=== PATIENT | male | born 1990 | race Two or more races ===

== ENCOUNTER → 2024-06-02 | Outpatient (CLI) | payer MEDICAID, SELFPAY | END | disposition home or self-care (01) | PROVIDERS: PCP Physician Assistant; Referring Provider Physician Assistant; Visit Provider Student in an Organized Health Care Education/Training Program | DX: K60.2 Anal fissure, unspecified (principal); G82.50 Quadriplegia, unspecified; G40.89 Other seizures | CPT/HCPCS: 17250; 99212; G0463 ==

== ENCOUNTER → 2024-06-09 | Outpatient (CLI) | payer MEDICAID, SELFPAY | END | disposition home or self-care (01) | LOC: SWHD 13:25 | PROVIDERS: PCP Physician Assistant; Referring Provider Physician Assistant; Visit Provider Student in an Organized Health Care Education/Training Program | DX: K60.2 Anal fissure, unspecified (principal) | CPT/HCPCS: 99213; G0463 ==

== ENCOUNTER 2024-06-12 14:22 | Inpatient (IN) | payer MEDICAID, SELFPAY ==
[2024-06-12] VITALS (17 sets, daily range): BP systolic 110–131; BP diastolic 71–100; PULSE 105–122; RESP 20–40; TEMP 36.9–38.2; O2SAT 89–100; BMI 25.8
--- NOTE | 2024-06-12 14:49 | EKG_ITS ---
[facility] Test Date: 2024-06-12 Pat Name: OBED MOE Department: Room: - Gender: Male [employer] D[employer] Operator: : 1990 Requested By: Francesca Gregg Order Number: [id number] Reading MD: Francesca Gregg Measurements Intervals [place] Rate: 109 P: 44 CT: 132 QRS: 69 QRSD: 96 T: 60 QT: 305 QTc: 411 Interpretive Statements SINUS TACHYCARDIA ABNORMAL RHYTHM ECG Compared to ECG 12/24/2023 13:37:14 Sinus rhythm no longer present /store/S0/[id number].pdf
--- NOTE | 2024-06-12 14:50 | XR_ITS ---
Examination: AP chest single view Technique one AP portable semiupright chest single view Exam date and time: June 12, 2024 1403 hours INDICATIONS: Sepsis protocol FINDINGS: Suspicious for early bilateral perihilar pneumonia Normal heart size Reduced inspiratory effort IMPRESSION: Suspicious for early bilateral perihilar pneumonia
--- NOTE | 2024-06-12 15:25 | PD.EDSOB ---
ED SOB =RME/HPI General Chief Complaint: Shortness of Breath/Dyspnea Stated Complaint: SHORTNESS OF BREATH Time Seen by Provider: 06/12/24 14:46 Arrival date/time: 06/12/24 14:22 RME / HPI RME / HPI Narrative: 34-year-old male patient with significant history of mental retardation, seizure disorder, nonambulatory, bedbound, was brought in by EMS for evaluation regarding shortness of breath. Patient was noted to be breathing heavy as described by EMS, less responsive, and febrile. Was also noted to be coughing. Onset of symptoms unknown since family is not around at this time. When the EMS arrived, patient was satting 88% on room air. Sepsis alert was initiated right away. Placed on oxygen and now satting 95% on 3 L Related Data Home Medications ?Medication ?Instructions ?Recorded ?Confirmed ascorbic acid (vitamin C) 500 mg 500 mg feeding tube DAILY 12/24/23 12/24/23 tablet (Vitamin C) baclofen 10 mg tablet 10 mg feeding tube Q8HR 12/24/23 12/24/23 cenobamate 200 mg tablet (Xcopri) 200 mg feeding tube DAILY 12/24/23 12/24/23 clonazepam 1 mg tablet 1 mg feeding tube BID 12/24/23 12/24/23 loratadine 10 mg tablet 10 mg feeding tube DAILY 12/24/23 12/24/23 olopatadine 0.2 % eye drops 1 drp ophthalmic (eye) DAILY 12/24/23 12/24/23 valproic acid (as sodium salt) 250 250 mg feeding tube BID 12/24/23 12/24/23 mg/5 mL oral solution Previous Rx's ?Medication ?Instructions ?Recorded levetiracetam 100 mg/mL oral 750 mg (7.5 mL) feeding tube BID 12/27/23 solution (Keppra) #473 mL Allergies Allergy/AdvReac Type Severity Reaction Status Date / Time Penicillins Allergy Verified 11/11/22 22:23 Review of Systems Review of Systems Narrative Review of Systems: Review of system reviewed and within normal limits except mentioned in HPI ED Exam Narrative Physical exam: VITAL SIGNS: Reviewed. GENERAL APPEARANCE: Spontaneous opening of the eyes, nonverbal, does not follows commands, in mild acute distress, HEAD AND FACE: Non-traumatic. ENT: PERRL, pink conjunctivitis, eyelid no trauma, Mucous membrane moist. NECK: Supple, nontender, no nuchal rigidity. CHEST: No tenderness, no crepitus, no paradoxical movement, no retractions. LUNGS: Clear, well ventilated, symmetric, no rales, no wheezing, no ronchi, no stridor, good breath sounds bilaterally. HEART: Regular rate, regular rhythm, no murmur, no gallops. ABDOMEN: Soft, positive bowel sounds, nondistended, no guarding, nontender, no rebound, no masses, G-tube intact RECTAL: Deferred. GENITAL: Deferred. NEUROLOGICAL: Gross motor function intact sensory function intact, Appropriate for age. MUSCULOSKELETAL: low back nontender, full range of motion. EXTREMITIES: Contracted upper and lower extremity, minimal range of motion. SKIN: Color pink, dry, no rash, no lacerations, no abrasions, no contusions. LYMPHATICS: Deferred. Course Quality Measures none Orders Category Date Time Status Admit to Inpatient Status Routine Admission 06/12/24 21:04 Active Patient Condition Routine Admission 06/12/24 21:04 Ordered Aspiration precautions ONCE Care 06/12/24 21:05 Active Bedside COVID-19 Antigen Test NOW Care 06/12/24 18:17 Active Bedside Influenza A&B Antigen Test NOW Care 06/12/24 18:18 Completed COVID-19 Screening Questionnaire NOW Care 06/12/24 20:04 Active Licensed Mortgage Loan Officer STAT Care 06/12/24 14:49 Active Continuous Pulse Oximetry STAT Care 06/12/24 14:49 Completed Decision to Admit X1 Care 06/12/24 20:04 Active EKG (ED ONLY) *Do not use* NOW Care 06/12/24 14:49 Completed In and Out Catheter X1PRN Care 06/12/24 14:49 Completed Insert IV NOW Care 06/12/24 14:49 Active Miscellaneous Nursing Order NOW Care 06/12/24 21:05 Active NPO STAT Care 06/12/24 14:49 Active Nasopharyngeal Suction NEEDED Care 06/12/24 21:05 Active Notify provider NEEDED Care 06/12/24 21:04 Active Obtain weight NOW Care 06/12/24 21:04 Active Seizure precautions NEEDED Care 06/12/24 21:05 Active Strict Intake and Output Routine Care 06/12/24 14:49 Ordered Referral Registered Dietitian Routine Cons 06/12/24 21:22 Active Jevity 1.5 1L RTH Diet 06/13/24 Breakfast Active EKG (ED Only) Stat Exams 06/12/24 14:49 Draft XR chest 1V SEPSIS PROTOCOL Stat Exams 06/12/24 14:50 Completed B-Type Natriuretic Peptide Stat Lab 06/12/24 15:15 Completed Blood Culture (Lab) Stat Lab 06/12/24 15:15 Received CBC AM DRAW Lab 06/13/24 05:00 Ordered CBC AM DRAW Lab 06/14/24 05:00 Ordered CBC AM DRAW Lab 06/15/24 05:00 Ordered CBC Stat Lab 06/12/24 15:15 Completed Cocci Serology IgM with reflex to IgG [Cocci Serology, Lab 06/12/24 21:11 Ordered Unk History] Routine Comprehensive Metabolic Panel AM DRAW Lab 06/13/24 05:00 Ordered Comprehensive Metabolic Panel AM DRAW Lab 06/14/24 05:00 Ordered Comprehensive Metabolic Panel AM DRAW Lab 06/15/24 05:00 Ordered Comprehensive Metabolic Panel Stat Lab 06/12/24 15:15 Completed LDH (Lactate Dehydrogenase) Stat Lab 06/12/24 15:15 Completed Lactate (Lactic Acid) Stat Lab 06/12/24 15:15 Completed Lactic Acid, 3 HR Stat Lab 06/12/24 19:08 Completed Lipase Stat Lab 06/12/24 15:15 Completed MRSA Nasal Screen Stat Lab 06/12/24 21:11 Ordered Magnesium AM DRAW Lab 06/13/24 05:00 Ordered Magnesium AM DRAW Lab 06/14/24 05:00 Ordered Magnesium AM DRAW Lab 06/15/24 05:00 Ordered Magnesium Stat Lab 06/12/24 15:15 Completed Partial Thromboplastin Time Stat Lab 06/12/24 15:15 Completed Phosphorous AM DRAW Lab 06/13/24 05:00 Ordered Phosphorous AM DRAW Lab 06/14/24 05:00 Ordered Phosphorous AM DRAW Lab 06/15/24 05:00 Ordered Phosphorous Stat Lab 06/12/24 15:15 Completed Procalcitonin Stat Lab 06/12/24 15:15 Completed Prothrombin Time with INR Stat Lab 06/12/24 15:15 Completed Troponin I Stat Lab 06/12/24 15:15 Completed Urinalysis Stat Lab 06/12/24 15:50 Completed Urine Culture Stat Lab 06/12/24 15:50 Received VBG [Venous Blood Gas] Stat Lab 06/12/24 15:15 Completed Acetaminophen Supp [Tylenol Supp] Med 06/12/24 21:05 Active 650 mg NE Q6H PRN Acetaminophen Supp [Tylenol Supp] Med 06/12/24 16:06 Discontinued 650 mg NE X1 ONE Acetaminophen Tab [Tylenol Tab] Med 06/12/24 21:05 Active 650 mg PO Q6H PRN Albuterol/Ipratr Rt Aleyda [Duoneb Rt Aleyda] Med 06/12/24 23:00 Ordered 3 ml INH Q4HRRT Azithromycin Inj [Zithromax Inj] 500 mg Med 06/13/24 09:00 Ordered Sodium Chloride 0.9% 250 ml [Ns] 250 ml IV QDAY Azithromycin Inj [Zithromax Inj] 500 mg Med 06/12/24 18:22 Discontinued Sodium Chloride 0.9% 250 ml [Ns] 250 ml IV X1 Baclofen [Lioresal] Med 06/12/24 22:00 Ordered 10 mg GT TID Dextrose 50% Syr [D50w Syringe Abboject] Med 06/12/24 21:23 Active 25 ml IV Q15MIN PRN Dextrose 50% Syr [D50w Syringe Abboject] Med 06/12/24 21:23 Active 50 ml IV Q15MIN PRN Glucagon Inj Med 06/12/24 21:23 Active 1 mg IM Q15MIN PRN HYDROcodone*/APAP 5/325 [[place] 5/325] Med 06/12/24 21:05 Active 1 tab GT Q4HR PRN Heparin Inj Med 06/12/24 21:15 Ordered 5,000 unit SC BID Magnesium Sulfate 2 GM Ivpb [Magnesium Sulfate Ivpb] Med 06/12/24 21:23 Active 2 gm in 50 ml IV X1 Olopatadine Hcl 0.2% Med 06/13/24 09:00 Ordered 0.2 drops BOTH EYES QDAY Ondansetron Inj [Zofran Inj] Med 06/12/24 21:05 Ordered 4 mg IV Q6H PRN Pantoprazole Inj [Protonix Inj] Med 06/13/24 09:00 Ordered 40 mg IVP QDAY Senna [Senokot] Med 06/12/24 21:05 Ordered 1 tab GT QDAY PRN Sodium Chloride 0.9% 1000 ml [Ns] 1,000 ml Med 06/12/24 21:15 Ordered IV 75 mls/hr Sodium Chloride 0.9% 1000 ml [Ns] 1,000 ml Med 06/12/24 14:53 Discontinued IV 999 mls/hr Sodium Chloride 0.9% 1000 ml [Ns] 1,000 ml Med 06/12/24 18:22 Discontinued IV 999 mls/hr Valproic Acid Syrup [Depakene Syrup] Med 06/12/24 21:30 Ordered 250 mg GT BID Xcopri Med 06/13/24 09:00 Ordered 200 mg FEED TUBE QDAY cefTRIAXone [Rocephin] 1,000 mg Med 06/12/24 16:45 Discontinued Sodium Chloride 0.9% (P) [Ns 0.9% (P)] 50 ml IV X1 cefTRIAXone/D5w 1gm IV premix [Rocephin/D5w 1gm IV Med 06/13/24 09:00 Ordered premix] 50 ml IV QDAY clonazePAM [KlonoPIN] Med 06/12/24 21:15 Ordered 1 mg GT BID guaiFENesin/DM [Mucinex DM] Med 06/12/24 21:11 Active 1 each GT Q4HR PRN levETIRAcetam [Keppra] Med 06/12/24 21:30 Ordered 100 mg PO BID lorataDINE [Claritin] Med 06/13/24 09:00 Ordered 10 mg PO QDAY Code Status Routine Oth 06/12/24 21:04 Ordered Airway suctioning NEEDED RT 06/12/24 21:05 Active Airway suctioning X1 RT 06/12/24 21:05 Active Chest Physiotherapy Treatment Q6HR RT 06/12/24 21:20 Active Oxygen Delivery NOW RT 06/12/24 14:49 Active Oxygen Delivery PRN RT 06/12/24 21:05 Active Vital Signs Vital signs: Vital Signs Pulse Rate 115 H 06/12/24 14:40 Respiratory Rate 22 H 06/12/24 14:40 Blood Pressure 125/77 06/12/24 14:40 Pulse Oximetry (%) 99 06/12/24 14:40 Oxygen Delivery Method High Flow Nasal Cannula 06/12/24 14:40 Oxygen Flow Rate 15 06/12/24 14:40 Shortness of Breath / Dyspnea MDM Narrative MDM Narrative:: 34-year-old male patient with significant history of mental retardation, seizure disorder, nonambulatory, bedbound, was brought in by EMS for evaluation regarding shortness of breath. Patient was noted to be breathing heavy as described by EMS, less responsive, and febrile. Was also noted to be coughing. Onset of symptoms unknown since family is not around at this time. When the EMS arrived, patient was satting 88% on room air. Sepsis alert was initiated right away. Placed on oxygen and now satting 95% on 3 L Patient CBC showed no leukocytosis. Lactic acid was noted to be 2.2 chest x-ray showed bilateral pneumonia. EKG showed sinus tachycardia, ventricular rate of 109 bpm, no ST segment elevation depression noted. Patient received IV fluids for hydration, IV ceftriaxone and IV Zithromax. Was also given Tylenol Discussed with hospitalist who admitted the patient. Patient data External records reviewed:: None Clinical information provided by:: EMS Social determinants that could affect healthcare access:: none Patient has the following chronic illnesses:: Mental retardation, bedbound, seizure disorder How is presenting disease/condition affected by chronic disease/condition?: exacerbated by Evaluation data The following diagnostics were reviewed and interpreted by me:: lab results and radiology exam(s) Lab and/or radiology exams considered but not ordered:: None Interpretation Summary: See results in [facility] Medications / Prescriptions Medications or Prescriptions considered but not ordered:: None Medication administrations:: Medication Administration History Acetaminophen (Acetaminophen 325 Mg Tablet) 650 mg PO Q6H PRN PRN Reason: Fever >100.4 or pain Stop: 07/12/24 21:04 Acetaminophen (Acetaminophen Supp 650 Mg Supp) 650 mg NE Q6H PRN PRN Reason: PAIN SCALE 1-3 (mild Stop: 07/12/24 21:04 Hydrocodone Bitart/Acetaminophen (Hydrocodone/Apap 5/325 Tablet) 1 tab GT Q4HR PRN PRN Reason: PAIN SCALE 4-10(Mod-Sev Stop: 06/17/24 21:04 Albuterol/Ipratropium (Albuterol/Ipratropium (Duoneb) Rt Aleyda 3 Ml Nebu) 3 ml INH Q4HRRT ROCIO Stop: 07/12/24 22:59 Baclofen (Baclofen 10 Mg Tablet) 10 mg GT TID ROCIO Stop: 07/12/24 21:59 Clonazepam (Clonazepam 0.5 Mg Tablet) 1 mg GT BID ROCIO Stop: 06/17/24 21:14 Dextrose (Dextrose 50%-Water Inj 50 Ml Syringe) 25 ml IV Q15MIN PRN PRN Reason: BG 50-70 responsive npo pt Stop: 07/12/24 21:22 Dextrose (Dextrose 50%-Water Inj 50 Ml Syringe) 50 ml IV Q15MIN PRN PRN Reason: BG <50 OR BG <70 & pt unresponsive Stop: 07/12/24 21:22 Glucagon (Glucagon Inj 1 Mg Vial) 1 mg IM Q15MIN PRN PRN Reason: BG <70, and no IV access Guaifenesin/Dextromethorphan (Guaifenesin/Dm Tablet) 1 each GT Q4HR PRN PRN Reason: COUGH Stop: 07/12/24 21:10 Heparin Sodium (Porcine) (Heparin Sod Inj 5000 Unit/Ml Vial) 5,000 unit SC BID ROCIO Stop: 06/26/24 21:14 Sodium Chloride (Ns) 1,000 mls @ 75 mls/hr IV .[id number] ROCIO Stop: 07/12/24 21:14 Ceftriaxone Sodium/Dextrose (Rocephin/D5w 1gm Iv Premix) 50 mls @ 100 mls/hr IV QDAY ROCIO Stop: 06/20/24 08:59 Azithromycin 500 mg/ Sodium (Chloride) 250 mls @ 250 mls/hr IV QDAY ROCIO Stop: 06/16/24 08:59 Magnesium Sulfate (Magnesium Sulfate Ivpb) 2 gm in 50 mls @ 25 mls/hr IV X1 ONE Stop: 06/12/24 23:22 Levetiracetam (Levetiracetam 250 Mg Tablet) 100 mg PO BID ROCIO Stop: 07/12/24 21:29 Loratadine (Loratadine 10 Mg Tablet) 10 mg PO QDAY ROCIO Stop: 07/13/24 08:59 Non-Formulary Medication (Olopatadine Hcl 0.2%) 0.2 drops BOTH EYES QDAY ROCIO Stop: 07/13/24 08:59 Non-Formulary Medication (Xcopri) 200 mg FEED TUBE QDAY [facility] Stop: 07/13/24 08:59 Ondansetron HCl (Ondansetron Inj 2 Mg/Ml Inj 2 Ml) 4 mg IV Q6H PRN; Protocol PRN Reason: NAUSEA OR VOMITING Stop: 07/12/24 21:04 Pantoprazole Sodium (Pantoprazole Inj 40 Mg Vial) 40 mg IVP QDAY ROCIO Stop: 07/13/24 08:59 Sennosides (Senna Tablet) 1 tab GT QDAY PRN; Protocol PRN Reason: constipation Stop: 07/12/24 21:04 Valproic Acid (Valproic Acid Syrup 250 Mg/5 Ml Udc) 250 mg GT BID ROCIO Stop: 07/12/24 21:29 Discontinued Medications Acetaminophen (Acetaminophen Supp 650 Mg Supp) 650 mg NE X1 ONE Stop: 06/12/24 16:07 Last Admin: 06/12/24 16:36 Dose: 650 mg Documented By: Sodium Chloride (Ns) 1,000 mls @ 999 mls/hr IV .Q1H1M ONE Stop: 06/12/24 15:53 Last Infusion: 06/12/24 18:16 Dose: Infused Documented By: Admin: 06/12/24 16:45 Dose: 999 mls/hr Documented By: JAYLA Ceftriaxone Sodium 1,000 mg/ (Sodium Chloride) 50 mls @ 100 mls/hr IV X1 ONE Stop: 06/12/24 17:14 Last Infusion: 06/12/24 17:58 Dose: Infused Documented By: Admin: 06/12/24 16:54 Dose: 100 mls/hr Documented By: JAYLA Azithromycin 500 mg/ Sodium (Chloride) 250 mls @ 250 mls/hr IV X1 ONE Stop: 06/12/24 19:21 Last Admin: 06/12/24 18:57 Dose: 250 mls/hr Documented By: Sodium Chloride (Ns) 1,000 mls @ 999 mls/hr IV .Q1H1M ONE Stop: 06/12/24 19:22 Last Admin: 06/12/24 18:58 Dose: 999 mls/hr Documented By: JAYLA Ceftriaxone IV, Zithromax IV, IV fluids for hydration and Tylenol Consultations Consultation(s) initiated? (list below): No Diagnosis Shortness of Breath Differential Diagnosis: community acquired pneumonia and other (Sepsis, fever, aspiration pneumonia) Most likely diagnosis given after review of the tests above:: Sepsis, pneumonia Admission Indicated Admission indicated?: not indicated Admission Request Was there a request for admission?: Yes Admission Attestation Admission request attestation: Discussed case with [Dr. Weeks] from Hospitalist service regarding admission. Discussed patients ED course, exam findings, labs, and radiology results. The Hospitalist [agrees] to accept the patient for admission. Disposition Plan Disposition Plan: Admit Discharge Plan Plan Patient Disposition: Admit Acute Care w/in Hospital Disposition Comment: Stable Prescriptions/Referrals Prescriptions/Med Rec: No Action clonazepam 1 mg tablet 1 mg feeding tube BID ascorbic acid (vitamin C) [Vitamin C] 500 mg tablet 500 mg feeding tube DAILY valproic acid (as sodium salt) 250 mg/5 mL solution 250 mg feeding tube BID baclofen 10 mg tablet 10 mg feeding tube Q8HR loratadine 10 mg tablet 10 mg feeding tube DAILY olopatadine 0.2 % drops 1 drp OPHTHALMIC (EYE) DAILY Xcopri 200 mg tablet 200 mg feeding tube DAILY levetiracetam [Keppra] 100 mg/mL solution 750 mg feeding tube BID Qty: 473 0RF Problem List Clinical Impression: Sepsis, Pneumonia Patient/Caregiver Discharge Instructions Print Language: Azeri Stand Alone Forms: Annia Award Info., Patient Portal Info Letter
[2024-06-12 15:27] LABS: Base Excess, Venous 4 (-3-3); Lactate (Lactic Acid) 2.2 mMol/L (0.4-2.0); O2 Saturation, Venous 96 % (96-97); PCO2, Venous 44 mmHg (36-56); PO2, Venous 73 mmHg (15-58); pH, Venous 7.43 (7.33-7.66)
[2024-06-12 15:37] LABS: Basophils % (Auto) 1 % (0-2.5); Eosinophils # (Auto) 0.3 Thou/mm3 (0.0-0.5); Eosinophils % (Auto) 4 % (0-10); Hematocrit 42.4 % (41.0-53.0); Hemoglobin 14.6 g/dL (13.5-16.0); Immature Granulocytes % (Auto) 0 % (0-0); Immature Granulocytes Auto 0.02 Thou/mm3 (0.00-0.00); Lymphocytes # (Auto) 0.7 Thou/mm3 (1.0-4.8); Lymphocytes % (Auto) 10 % (10-50); Mean Corpuscular HGB Conc 34.4 g/dl (31.0-37.0); Mean Corpuscular Hemoglobin 29.3 pg (25.0-35.0); Mean Corpuscular Volume 85 fL (80-100); Monocytes # (Auto) 1.2 Thou/mm3 (0.0-0.8); Monocytes % (Auto) 18 % (0-12); Neutrophils # (Auto) 4.6 Thou/mm3 (1.8-7.7); Neutrophils % (Auto) 67 % (37-80); Nucleated Red Blood Cell % 0 /100 WBC (0); Platelet Count 185 Thou/mm3 (140-440); RDW Standard Deviation 44.2 fL (35.1-43.9); Red Blood Count 4.99 Miln/mm3 (4.50-5.90); White Blood Count 6.8 Thou/mm3 (3.8-10.6)
[2024-06-12 15:45] LABS: Partial Thromboplastin Time 32.5 Seconds (22.0-36.0); Prothrombin Time 11.2 Seconds (9.0-12.2)
[2024-06-12 15:46] LABS: B-Type Natriuretic Peptide < 20 pg/mL (0-100)
[2024-06-12 15:55] LABS: Collection Type, Urine Clean Catch
[2024-06-12 15:55] LABS: Alanine Aminotransferase 44 U/L (10-49); Albumin, Serum 4.4 gm/dL (3.5-5.0); Albumin/Globulin Ratio 1.4 (1.2-2.2); Alkaline Phosphatase 109 U/L (46-116); Anion Gap 7 (7-16); Aspartate Amino Transferase 28 U/L (0-34); BUN/Creatinine Ratio 15 Ratio (12-20); Bilirubin,Total 0.3 mg/dL (0.3-1.2); Blood Urea Nitrogen 6 mg/dL (9-23); Calcium 9.5 mg/dL (8.3-10.6); Calcium (Corrected) 9.5 mg/dL (8.5-10.1); Carbon Dioxide 26.7 mMol/L (20.0-31.0); Chloride 91 mMol/L (98-107); Creatinine (Component) 0.4 mg/dL (0.6-1.3); Globulin 3.2 gm/dL (2.3-3.5); Glucose 93 mg/dL (74-106); LDH (Lactate Dehydrogenase) 168 U/L (120-246); Lipase 47 U/L (12-53); Magnesium 1.8 mg/dL (1.6-2.6); Osmolality,Calculated 249 (275-295); Phosphorous 2.9 mg/dL (2.4-5.1); Potassium 3.9 mMol/L (3.4-5.1); Procalcitonin 0.06 ng/ml (0.0-0.49); Sodium 125 mMol/L (136-145); Total Protein 7.6 gm/dL (5.7-8.2); Troponin I < 0.020 ng/mL (0.0-0.045); eGFR > 60 See Note
[2024-06-12 16:36] LABS: Bilirubin,Urine Negative (Negative); Blood,Urine Negative (Negative); Clarity,Urine Clear (Clear/Hazy); Color,Urine Lt-Yellow (Lt Yel-Yel); Glucose, Urine Negative (Negative); Ketones,Urine Negative (Negative); Leukocyte Esterase,Urine Positive (Negative); Nitrite,Urine Negative (Negative); Protein,Urine Negative (Neg - Trace); RBC,Urine 1 /hpf (0-3); Specific Gravity,Urine 1.017 (1.001-1.035); Squamous Epithelial Cell,Urine 5 /hpf (0-5); WBC,Urine 4 /hpf (0-5)
[2024-06-12] MEDS: ACETAMINOPHEN SUPP 650 MG SUPP PR (16:36)
[2024-06-12] MEDS: SODIUM CHLORIDE 0.9% 1000 ML 1,000 ML 999 ML IV ×2 (16:45→18:58)
[2024-06-12] MEDS: cefTRIAXone 1,000 MG in SODIUM CHLORIDE 0.9% (P) 50 ML 100 MG IV (16:54)
[2024-06-12 18:24] LABS: Reflex Lactate? Y
[2024-06-12] MEDS: AZITHROMYCIN INJ 500 MG in SODIUM CHLORIDE 0.9% 250 ML 250 ML 250 MG IV (18:57)
--- NOTE | 2024-06-12 21:24 | ESHP_ITS ---
Documentation for date of: 06/12/24 HPI History of Present Illness Chief complaint: SOB and cough History of present illness: This patient is a 33-year-old male with past medical history of traumatic brain injury with contractures since and 2002 leading to anoxic brain injury and persistent vegetative state, history of seizures, myocarditis with residual neurological injury and probable prolonged QT syndrome, PEG tube placed since accident doing swimming at school presented with productive cough and shortness of breath from last couple of days. On presentation, patient was found in persistent vegetative state without ability to track and was also found to have contracted limbs. Patient was sent from skilled nursing and he is conserved.[facility] Counselor Dana Mooreck Ph no [phone]. I tried calling on the phone number but was not able to reach out for CODE STATUS. Voicemail was full therefore voicemail could not be sent out. Patient code status was placed based on previous chart review. ED course: In the ED, patient was hypertensive with blood pressure 130/85, tachycardic heart rate 114 bpm, tachypneic respiratory rate 24 and febrile 100.8. Patient was saturating 100% on 3 L NC. Labs were unremarkable including white count and hemoglobin stable. Chemistry panel showed hyponatremia sodium 125. Serum osmolality 249. Kidney functions were stable. Blood glucose stable. Initial lactic acid was elevated at 2.2 down trended to 2.0. Troponin I was negative. Lipase negative. Urinalysis was unremarkable. Influenza and COVID was negative. EKG showed sinus tachycardia with QTc 411. Chest x-ray showed bilateral perihilar pneumonia. Blood cultures and urine cultures were ordered. Previous sputum cultures showed Pseudomonas sensitive to Zosyn. In the ED, patient received ceftriaxone and azithromycin x 1 and 2 L bolus of fluids. PMH: As above SH: Lives in skilled nursing since 2015. Never smoker David or illicit drug use. FH: None Allergies: Penicillin Medications: Baclofen, clonazepam, levetiracetam, valproic acid, Olaptadine eyedrops,xcorpi Patient is admitted for further workup and management of sepsis and acute hypoxic respiratory failure due to community-acquired pneumonia. Review of Systems Review of Systems ROS Unobtainable: unobtainable due to mental status Past Medical History Past Medical History NEUROLOGIC: Positive Neurological Disorders, Seizures and Traumatic Brain Injury RESPIRATORY: Positive Pneumonia Social History SMOKING STATUS: Smoker, status unknown Exam Vital Signs Temp Pulse Resp BP Pulse Ox O2 Del Method O2 Flow Rate 98.4 F 106 H 24 H 110/71 89 L Room Air 6 06/12/24 19:38 06/12/24 19:38 06/12/24 19:38 06/12/24 19:38 06/12/24 19:38 06/12/24 19:38 06/12/24 15:49 Narrative Exam GENERAL APPEARANCE: Patient is in chronic vegetative state and had contractures. Saturating well on 3 L NC. HEENT: NC, AT. Dry mucous membrane. EOMI, clear conjunctiva, oropharynx clear. NECK: Supple without lymphadenopathy. No stiffness or restricted ROM. HEART: Regular rate and regular rhythm, normal S1/S2, no m/r/g LUNGS: Tachypnea with increased respiratory secretions with coarse breath sounds bilateral ABDOMEN: Soft, nontender, nondistended with good bowel sounds heard. PEG tube placed BACK: No CVAT, no obvious deformity. EXTREMITIES: No edema. Spastic quadriplegia with contractures NEUROLOGICAL: Chronic vegetative state. Limited due to medical condition Skin: Warm and dry without any rash. Psych: Unable to assess Results: Labs 06/12/24 15:15 06/12/24 15:15 Labs: Short CBC 06/12/24 Range/Units 15:15 WBC 6.8 (3.8-10.6) Thou/mm3 Hgb 14.6 (13.5-16.0) g/dL Hct 42.4 (41.0-53.0) % Plt Count 185 (140-440) Thou/mm3 BMP 06/12/24 15:15 Sodium 125 L Potassium 3.9 Chloride 91 L Carbon Dioxide 26.7 BUN 6 L Creatinine 0.4 L Glucose 93 Calcium 9.5 Cardiac Enzymes 06/12/24 Range/Units 15:15 Troponin I < 0.020 (0.0-0.045) ng/mL Liver Function 06/12/24 Range/Units 15:15 Total Bilirubin 0.3 (0.3-1.2) mg/dL AST 28 (0-34) U/L ALT 44 (10-49) U/L Alkaline Phosphatase 109 (46-116) U/L Albumin 4.4 (3.5-5.0) gm/dL Urine 06/12/24 Range/Units 15:50 Urine Color Lt-Yellow (Lt Yel-Yel) Urine Clarity Clear (Clear/Hazy) Urine pH 8.0 H (5.0-7.0) Ur Specific [place] 1.017 (1.001-1.035) Urine Protein Negative (Neg - Trace) Urine Glucose (UA) Negative (Negative) ABG Interpretation ABG results: 06/12/24 15:15 VBG pH 7.43 VBG pCO2 44 VBG pO2 73 H VBG Base Excess 4 H Quality Measures Quality Measures VTE prophylaxis (Heparin subcut twice daily) Medications Home Medications and Allergies Home Medications ?Medication ?Instructions ?Recorded ?Confirmed ?Type ascorbic acid (vitamin C) 500 mg 500 mg feeding tube D AILY 12/24/23 12/24/23 History tablet (Vitamin C) baclofen 10 mg tablet 10 mg feeding tube Q8HR 11/2812/24/23 History cenobamate 200 mg tablet (Xcopri) 200 mg feeding tube DAILY 12/24/23 12/24/23 History clonazepam 1 mg tablet 1 mg feeding tube BID 12/24/23 History loratadine 10 mg tablet 10 mg feeding tube DAILY 12/24/23 History olopatadine 0.2 % eye drops 1 drp ophthalmic (eye) ALEXY LY 12/24/23 12/24/23 History valproic acid (as sodium salt) 250 250 mg feeding tube BID 12/24/23 12/24/23 History mg/5 mL oral solution Allergies Allergy/AdvReac Type Severity Reaction Status Date / Time Penicillins Allergy Verified 11/11/22 22:23 Visit Medications Acetaminophen (Acetaminophen 325 Mg Tablet) 650 mg PO Q6H PRN PRN Reason: Fever >100.4 or pain Stop: 07/12/24 21:04 Acetaminophen (Acetaminophen Supp 650 Mg Supp) 650 mg LA Q6H PRN PRN Reason: PAIN SCALE 1-3 (mild Stop: 07/12/24 21:04 Hydrocodone Bitart/Acetaminophen (Hydrocodone/Apap 5/325 Tablet) 1 tab GT Q4HR PRN PRN Reason: PAIN SCALE 4-10(Mod-Sev Stop: 06/17/24 21:04 Albuterol/Ipratropium (Albuterol/Ipratropium (Duoneb) Rt Aleyda 3 Ml Nebu) 3 ml INH Q4HRRT ROCIO Stop: 07/12/24 22:59 Baclofen (Baclofen 10 Mg Tablet) 10 mg GT TID ROCIO Stop: 07/12/24 21:59 Clonazepam (Clonazepam 0.5 Mg Tablet) 1 mg GT BID ROCIO Stop: 06/17/24 21:14 Dextrose (Dextrose 50%-Water Inj 50 Ml Syringe) 25 ml IV Q15MIN PRN PRN Reason: BG 50-70 responsive npo pt Stop: 07/12/24 21:22 Dextrose (Dextrose 50%-Water Inj 50 Ml Syringe) 50 ml IV Q15MIN PRN PRN Reason: BG <50 OR BG <70 & pt unresponsive Stop: 07/12/24 21:22 Glucagon (Glucagon Inj 1 Mg Vial) 1 mg IM Q15MIN PRN PRN Reason: BG <70, and no IV access Guaifenesin/Dextromethorphan (Guaifenesin/Dm Tablet) 1 each GT Q4HR PRN PRN Reason: COUGH Stop: 07/12/24 21:10 Heparin Sodium (Porcine) (Heparin Sod Inj 5000 Unit/Ml Vial) 5,000 unit SC BID ROCIO Stop: 06/26/24 21:14 Sodium Chloride (Ns) 1,000 mls @ 75 mls/hr IV .[id number] ROCIO Stop: 07/12/24 21:14 Ceftriaxone Sodium/Dextrose (Rocephin/D5w 1gm Iv Premix) 50 mls @ 100 mls/hr IV QDAY ROCIO Stop: 06/20/24 08:59 Azithromycin 500 mg/ Sodium (Chloride) 250 mls @ 250 mls/hr IV QDAY ROCIO Stop: 06/16/24 08:59 Magnesium Sulfate (Magnesium Sulfate Ivpb) 2 gm in 50 mls @ 25 mls/hr IV X1 ONE Stop: 06/12/24 23:22 Levetiracetam (Levetiracetam 250 Mg Tablet) 100 mg PO BID ROCIO Stop: 07/12/24 21:29 Loratadine (Loratadine 10 Mg Tablet) 10 mg PO QDAY ROCIO Stop: 07/13/24 08:59 Non-Formulary Medication (Olopatadine Hcl 0.2%) 0.2 drops BOTH EYES QDAY ROCIO Stop: 07/13/24 08:59 Non-Formulary Medication (Xcopri) 200 mg FEED TUBE QDAY [facility] Stop: 07/13/24 08:59 Ondansetron HCl (Ondansetron Inj 2 Mg/Ml Inj 2 Ml) 4 mg IV Q6H PRN; Protocol PRN Reason: NAUSEA OR VOMITING Stop: 07/12/24 21:04 Pantoprazole Sodium (Pantoprazole Inj 40 Mg Vial) 40 mg IVP QDAY ROCIO Stop: 07/13/24 08:59 Sennosides (Senna Tablet) 1 tab GT QDAY PRN; Protocol PRN Reason: constipation Stop: 07/12/24 21:04 Valproic Acid (Valproic Acid Syrup 250 Mg/5 Ml Udc) 250 mg GT BID ROCIO Stop: 07/12/24 21:29 Discontinued Medications Acetaminophen (Acetaminophen Supp 650 Mg Supp) 650 mg LA X1 ONE Stop: 06/12/24 16:07 Last Admin: 06/12/24 16:36 Dose: 650 mg Sodium Chloride (Ns) 1,000 mls @ 999 mls/hr IV .Q1H1M ONE Stop: 06/12/24 15:53 Last Infusion: 06/12/24 18:16 Dose: Infused Ceftriaxone Sodium 1,000 mg/ (Sodium Chloride) 50 mls @ 100 mls/hr IV X1 ONE Stop: 06/12/24 17:14 Last Infusion: 06/12/24 17:58 Dose: Infused Azithromycin 500 mg/ Sodium (Chloride) 250 mls @ 250 mls/hr IV X1 ONE Stop: 06/12/24 19:21 Last Admin: 06/12/24 18:57 Dose: 250 mls/hr Sodium Chloride (Ns) 1,000 mls @ 999 mls/hr IV .Q1H1M ONE Stop: 06/12/24 19:22 Last Admin: 06/12/24 18:58 Dose: 999 mls/hr Assessment & Plan Plan Summary: This patient is a 33-year-old male with past medical history of traumatic brain injury with contractures, history of seizures, myocarditis with residual neurological injury and probable prolonged QT syndrome presented to the ED with cough and shortness of breath. Patient is admitted for sepsis and acute hypoxic respiratory failure due to community-acquired pneumonia. #Sepsis and acute hypoxic respiratory failure #Likely secondary to community-acquired pneumonia ?Met 3/4 SIRS criteria ? Patient presented from skilled nursing with shortness of breath and productive cough with phlegm. Patient is in chronic vegetative state s/p anoxic brain injury. ?Labs showed hemoglobin and white count within normal limits. Lactic acid was elevated on admission. Chest x-ray showed bilateral perihilar pneumonia with reduced respiratory effort. ? EKG showed sinus tachycardia with QTc 411 ? Vitals showed blood pressure 130/85, heart rate 114, respiratory rate 24 and febrile. Saturating 100% on 3 L NC. ? Patient with 3/4 SIRS criteria with tachycardia tachypnea and fever with possible source pneumonia and elevated lactic acid. Procalcitonin was negative. VBG was unremarkable. Flu and COVID test was negative. ?In the ED, patient received ceftriaxone and azithromycin x 1 and 2 L bolus of fluids. Plan: ? Started IV ceftriaxone 1 g once daily and azithromycin 500 mg once daily, [06/12/2024? ? Started IV fluids ? Daily labs ? Ordered cocci serology ? Frequent nasopharyngeal and airway suctioning ? Breathing treatments and chest PT ? Follow-up on morning labs ? Replete electrolytes as necessary ? Aspiration precautions #Lactic acidosis likely type B ? Lactic acid was 2.2 down trended to 2.0 ? Treating underlying infection #Hypoosmolar hyponatremia -DDx: GI losses versus medication induced versus dehydration -Patient is in chronic vegetative state. Plan: ? Started IV fluids at 75 cc ? Daily labs #Chronic persistent vegetative state s/p traumatic brain injury #History of seizure disorder ? Patient takes Keppra, clonazepam, baclofen and xcopri skilled nursing. Plan: ? Resumed home medications ? Seizure precautions #PEG tube -Patient does have a PEG tube feed in place clean and dry Plan: ? Resume PEG tube feeding Health maintenance Diet: PEG tube feedings with Jevity 1.5 GI prophylaxis: Protonix IV daily DVT prophylaxis: Heparin subcut twice daily CODE STATUS: Full code Disposition: Patient is admitted for further workup and management of sepsis and acute hypoxic respiratory failure due to community-acquired pneumonia. Patient was seen and discussed with attending physician, Dr. Leonard Moore MD, PGY 2 Attending Provider Attestation/Addendum 34-year-old male patient with history of traumatic brain injury, anoxic encephalopathy persistent vegetative state status post PEG. The patient was admitted for hypoxic respiratory failure, sepsis secondary to pneumonia. The patient was started on IV antibiotic treatment in the emergency room. Check culture results. The patient is full code.
--- NOTE | 2024-06-12 21:44 | PC.NURSE ---
awaiting for phARMacy to verify meds.
[2024-06-12] MEDS: ALBUTEROL/IPRATROPIUM (Duoneb) RT SOL 3 ML NEBU INH (22:33)
[2024-06-12] MEDS: HEPARIN SOD INJ 5000 UNIT/ML VIAL SC (22:51)
[2024-06-12] MEDS: ACETAMINOPHEN 325 MG TABLET 650 MG PO (22:53)
[2024-06-12] MEDS: clonazePAM 0.5 MG TABLET 1 MG GT (22:53)
[2024-06-12] MEDS: VALPROIC ACID SYRUP 250 MG/5 ML UDC GT (23:06)
[2024-06-12] MEDS: SODIUM CHLORIDE 0.9% 1000 ML 1,000 ML 75 ML IV (23:10)
[2024-06-12] MEDS: Magnesium Sulfate 2 GM Ivpb 2 GM/50 ML BAG IV (23:11)
[2024-06-12] MEDS: BACLOFEN 10 MG TABLET GT (23:45)
[2024-06-12] MEDS: levETIRAcetam LIQD 500 MG/5 ML UDC 100 MG PO (23:45)
[2024-06-13] VITALS (25 sets, daily range): BP systolic 109–132; BP diastolic 68–99; PULSE 93–117; RESP 17–29; TEMP 36.6–38.3; O2SAT 94–100; BMI 25.7
[2024-06-13] MEDS: ALBUTEROL/IPRATROPIUM (Duoneb) RT SOL 3 ML NEBU INH ×5 (03:24→22:32)
--- NOTE | 2024-06-13 04:39 | PC.NURSE ---
Pt has been sleeping throughout the night. has periodical coughing spells.
[2024-06-13 05:21] LABS: Basophils % (Auto) 1 % (0-2.5); Eosinophils # (Auto) 0.1 Thou/mm3 (0.0-0.5); Eosinophils % (Auto) 2 % (0-10); Hematocrit 43.1 % (41.0-53.0); Hemoglobin 14.8 g/dL (13.5-16.0); Immature Granulocytes % (Auto) 0 % (0-0); Immature Granulocytes Auto 0.01 Thou/mm3 (0.00-0.00); Lymphocytes # (Auto) 1.2 Thou/mm3 (1.0-4.8); Lymphocytes % (Auto) 20 % (10-50); Mean Corpuscular HGB Conc 34.3 g/dl (31.0-37.0); Mean Corpuscular Hemoglobin 29.7 pg (25.0-35.0); Mean Corpuscular Volume 86 fL (80-100); Monocytes # (Auto) 1.3 Thou/mm3 (0.0-0.8); Monocytes % (Auto) 22 % (0-12); Neutrophils # (Auto) 3.2 Thou/mm3 (1.8-7.7); Neutrophils % (Auto) 55 % (37-80); Nucleated Red Blood Cell % 0 /100 WBC (0); Platelet Count 156 Thou/mm3 (140-440); RDW Standard Deviation 45.6 fL (35.1-43.9); Red Blood Count 4.99 Miln/mm3 (4.50-5.90); White Blood Count 5.8 Thou/mm3 (3.8-10.6)
[2024-06-13 06:19] LABS: Alanine Aminotransferase 40 U/L (10-49); Albumin, Serum 4.5 gm/dL (3.5-5.0); Albumin/Globulin Ratio 1.4 (1.2-2.2); Alkaline Phosphatase 111 U/L (46-116); Anion Gap 10 (7-16); Aspartate Amino Transferase 30 U/L (0-34); BUN/Creatinine Ratio 13 Ratio (12-20); Bilirubin,Total 0.2 mg/dL (0.3-1.2); Blood Urea Nitrogen < 5 mg/dL (9-23); Calcium 9.4 mg/dL (8.3-10.6); Calcium (Corrected) 9.4 mg/dL (8.5-10.1); Carbon Dioxide 23.7 mMol/L (20.0-31.0); Chloride 97 mMol/L (98-107); Creatinine (Component) 0.4 mg/dL (0.6-1.3); Estimated Creatinine Clearance 230.4 mL/min (>60); Globulin 3.2 gm/dL (2.3-3.5); Glucose 104 mg/dL (74-106); Magnesium 2.1 mg/dL (1.6-2.6); Osmolality,Calculated 259 (275-295); Phosphorous 3.1 mg/dL (2.4-5.1); Potassium 3.8 mMol/L (3.4-5.1); Sodium 131 mMol/L (136-145); Total Protein 7.7 gm/dL (5.7-8.2); eGFR > 60 See Note
--- NOTE | 2024-06-13 07:00 | PC.NURSE ---
Pt inc of urine. Pt cleaned and bedding changed.
[2024-06-13] MEDS: ACETAMINOPHEN 325 MG TABLET 650 MG PO ×2 (07:05→15:26)
[2024-06-13] MEDS: BACLOFEN 10 MG TABLET GT ×3 (07:59→21:07)
[2024-06-13] MEDS: clonazePAM 0.5 MG TABLET 1 MG GT ×2 (08:28→20:05)
[2024-06-13] MEDS: VALPROIC ACID SYRUP 250 MG/5 ML UDC GT ×2 (08:28→20:05)
[2024-06-13] MEDS: PANTOPRAZOLE INJ 40 MG VIAL IVP (08:29)
[2024-06-13] MEDS: levETIRAcetam LIQD 500 MG/5 ML UDC 100 MG PO ×2 (08:29→20:05)
[2024-06-13] MEDS: lorataDINE 10 MG TABLET PO (08:29)
[2024-06-13] MEDS: HEPARIN SOD INJ 5000 UNIT/ML VIAL SC ×2 (08:30→20:07)
[2024-06-13] MEDS: cefTRIAXone 1,000 MG in SODIUM CHLORIDE 0.9% (P) 50 ML 100 MG IV (08:54)
--- NOTE | 2024-06-13 10:30 | PC.DIETICIAN ---
Nutrition prescription Jevity 1.5 at 20 ml/hr via PEG tube by pump. Advance 10 ml every 8 hrs to goal rate of 50 ml/hr x 24 hrs. If no IV fluids, water flushes of 30 ml/hr (or per MD).
[2024-06-13 14:04] LABS: Respiratory Syncytial Virus Ag Positive (Negative)
--- NOTE | 2024-06-13 14:13 | ESPR_ITS ---
<Statement entered by Gonsalo Monahan MD - 06/14/24 06:25> I discussed with and supervised the marketing pr intern physician involved in the care of this patient. Patient assessment and plan was discussed with entire medicine team, including my attending. I agree with the assessment and plan as documented by marketing pr intern doctor. Patient care was discussed with my attending physician Dr. Lucho Monahan, PGY-2 Documentation for date of: 06/13/24 Subjective Subjective Interval history: 06/13/2024: Patient is an overnight admit for acute hypoxic respiratory failure secondary to healthcare associated pneumonia. Patient seen and examined at his stable baseline oxygenating 96% on 3 L nasal cannula. Patient is awake but in a chronic vegetative state. Patient does not seem to be in respiratory distress at this time and lung sounds are mildly coarse without any rales rhonchi or or wheezing. Patient's RSV came back positive; moreover, will consider discontinuing IV antibiotics on 06/14 if the patient remains stable. Exam Vital Signs Temp Pulse Resp BP Pulse Ox O2 Del Method O2 Flow Rate 99.0 F 105 H 20 109/78 100 Nasal Cannula 3 06/13/24 12:26 06/13/24 13:00 06/13/24 13:00 06/13/24 12:26 06/13/24 13:00 06/13/24 12:26 06/13/24 13:00 Narrative Exam Physical Exam: GENERAL: Chronic vegetative state with contractures. Saturating well on 2 L NC. HEENT: NC, AT. Dry mucous membrane. EOMI, clear conjunctiva, oropharynx clear. HEART: RRR, normal S1/S2, no m/r/g LUNGS: Coarse breath sounds heard bilaterally, no wheeze/rales/rhonci ABDOMEN: Soft, nontender, nondistended. PEG tube placed; site look clean/dry EXTREMITIES: No peripheral edema, cyanosis or clubbing; there are contractures of the upper extremeties. NEUROLOGICAL: Chronic vegetative state. Limited due to medical condition Objective Labs 06/14/24 04:48 06/14/24 06:50 Labs: Laboratory Results - last 24 hr 06/12/24 06/12/24 06/12/24 15:15 15:50 19:08 WBC 6.8 RBC 4.99 Hgb 14.6 Hct 42.4 MCV 85 MCH 29.3 MCHC 34.4 RDW Std Deviation 44.2 H Plt Count 185 Neut % (Auto) 67 Lymph % (Auto) 10 [place] % (Auto) 18 H Eos % (Auto) 4 Baso % (Auto) 1 Neut # (Auto) 4.6 Lymph # (Auto) 0.7 L [place] # (Auto) 1.2 H Eos # (Auto) 0.3 Baso # (Auto) 0.0 Immature Gran # (Auto) 0.02 H Absolute Nucleated RBC 0.00 Immature Gran % 0 Nucleated RBC % 0 PT 11.2 INR 1.0 APTT 32.5 VBG pH 7.43 VBG pCO2 44 VBG pO2 73 H VBG O2 Sat (Renaldo) 96 VBG Base Excess 4 H Sodium 125 L Potassium 3.9 Chloride 91 L Carbon Dioxide 26.7 Anion Gap 7 BUN 6 L Creatinine 0.4 L Estim Creat Clear Calc Not Performed. eGFR > 60 BUN/Creatinine Ratio 15 Glucose 93 Calculated Osmolality 249 L Lactic Acid 2.2 H 2.0 Calcium 9.5 Corrected Calcium 9.5 Phosphorus 2.9 Magnesium 1.8 Total Bilirubin 0.3 AST 28 ALT 44 Alkaline Phosphatase 109 Lactate Dehydrogenase 168 Troponin I < 0.020 B-Natriuretic Peptide < 20 Total Protein 7.6 Albumin 4.4 Globulin 3.2 Albumin/Globulin Ratio 1.4 Lipase 47 Procalcitonin 0.06 Ur Collection Type Clean Catch Urine Color Lt-Yellow Urine Clarity Clear Urine pH 8.0 H Ur Specific [place] 1.017 Urine Protein Negative Urine Glucose (UA) Negative Urine Ketones Negative Urine Blood Negative Urine Nitrite Negative Urine Bilirubin Negative Urine Urobilinogen (Auto) 2.0 Ur Leukocyte Esterase Positive Urine RBC 1 Urine WBC 4 Ur Squamous Epith Cells 5 Urine Bacteria None RSV Rapid 06/13/24 06/13/24 04:25 13:30 WBC 5.8 RBC 4.99 Hgb 14.8 Hct 43.1 MCV 86 MCH 29.7 MCHC 34.3 RDW Std Deviation 45.6 H Plt Count 156 Neut % (Auto) 55 Lymph % (Auto) 20 [place] % (Auto) 22 H Eos % (Auto) 2 Baso % (Auto) 1 Neut # (Auto) 3.2 Lymph # (Auto) 1.2 [place] # (Auto) 1.3 H Eos # (Auto) 0.1 Baso # (Auto) 0.0 Immature Gran # (Auto) 0.01 H Absolute Nucleated RBC 0.00 Immature Gran % 0 Nucleated RBC % 0 PT INR APTT VBG pH VBG pCO2 VBG pO2 VBG O2 Sat (Renaldo) VBG Base Excess Sodium 131 L Potassium 3.8 Chloride 97 L Carbon Dioxide 23.7 Anion Gap 10 BUN < 5 L Creatinine 0.4 L Estim Creat Clear Calc 230.4 eGFR > 60 BUN/Creatinine Ratio 13 Glucose 104 Calculated Osmolality 259 L Lactic Acid Calcium 9.4 Corrected Calcium 9.4 Phosphorus 3.1 Magnesium 2.1 Total Bilirubin 0.2 L AST 30 ALT 40 Alkaline Phosphatase 111 Lactate Dehydrogenase Troponin I B-Natriuretic Peptide Total Protein 7.7 Albumin 4.5 Globulin 3.2 Albumin/Globulin Ratio 1.4 Lipase Procalcitonin Ur Collection Type Urine Color Urine Clarity Urine pH Ur Specific [place] Urine Protein Urine Glucose (UA) Urine Ketones Urine Blood Urine Nitrite Urine Bilirubin Urine Urobilinogen (Auto) Ur Leukocyte Esterase Urine RBC Urine WBC Ur Squamous Epith Cells Urine Bacteria RSV Rapid Positive A ABG Interpretation ABG results: 06/12/24 15:15 VBG pH 7.43 VBG pCO2 44 VBG pO2 73 H VBG Base Excess 4 H Quality Measures Quality Measures VTE prophylaxis (Heparin subcut twice daily) Assessment & Plan Assessment Current Active Medications: Generic Name Dose Route Start Last Admin Trade Name Freq PRN Reason Stop Dose Admin Acetaminophen 650 mg 06/12/24 21:05 06/13/24 07:05 Acetaminophen 325 Mg Tablet PO 07/12/24 21:04 650 mg Q6H PRN Administration Fever >100.4 or pain Acetaminophen 650 mg 06/12/24 21:05 Acetaminophen Supp 650 Mg Supp AK 07/12/24 21:04 Q6H PRN PAIN SCALE 1-3 (mild Hydrocodone Bitart/Acetaminophen 1 tab 06/12/24 21:05 Hydrocodone/Apap 5/325 Tablet GT 06/17/24 21:04 Q4HR PRN PAIN SCALE 4-10(Mod-Sev Albuterol/Ipratropium 3 ml 06/12/24 23:00 06/13/24 10:24 Albuterol/Ipratropium (Duoneb) Rt Aleyda 3 Ml Nebu INH 07/12/24 22:59 3 ml Q4HRRT ROCIO Administration Baclofen 10 mg 06/12/24 22:00 06/13/24 07:59 Baclofen 10 Mg Tablet GT 07/12/24 21:59 10 mg TID ROCIO Administration Clonazepam 1 mg 06/12/24 21:15 06/13/24 08:28 Clonazepam 0.5 Mg Tablet GT 06/17/24 21:14 1 mg BID ROCIO Administration Dextrose 25 ml 06/12/24 21:23 Dextrose 50%-Water Inj 50 Ml Syringe IV 07/12/24 21:22 Q15MIN PRN BG 50-70 responsive npo pt Dextrose 50 ml 06/12/24 21:23 Dextrose 50%-Water Inj 50 Ml Syringe IV 07/12/24 21:22 Q15MIN PRN BG <50 OR BG <70 & pt unresponsive Glucagon 1 mg 06/12/24 21:23 Glucagon Inj 1 Mg Vial IM Q15MIN PRN BG <70, and no IV access Guaifenesin/Dextromethorphan 1 each 06/12/24 21:11 Guaifenesin/Dm Tablet GT 07/12/24 21:10 Q4HR PRN COUGH Heparin Sodium (Porcine) 5,000 unit 06/12/24 21:15 06/13/24 08:30 Heparin Sod Inj 5000 Unit/Ml Vial SC 06/26/24 21:14 5,000 unit BID ROCIO Administration Azithromycin 500 mg/ Sodium 250 mls @ 250 mls/hr 06/13/24 21:00 Chloride IV 06/20/24 20:59 QDAY@2100 ROCIO Ceftriaxone Sodium 1,000 mg/ 50 mls @ 100 mls/hr 06/13/24 09:00 06/13/24 09:30 Sodium Chloride IV 06/20/24 08:59 Infused QDAY ROCIO Infusion Levetiracetam 100 mg 06/12/24 23:00 06/13/24 08:29 Levetiracetam Liqd 500 Mg/5 Ml Udc PO 07/12/24 22:59 100 mg BID ROCIO Administration Loratadine 10 mg 06/13/24 09:00 06/13/24 08:29 Loratadine 10 Mg Tablet PO 07/13/24 08:59 10 mg QDAY ROCIO Administration Home Medication- 1 drops 06/13/24 09:00 Please Speak With BOTH EYES 07/13/24 08:59 Patient Caregiver To QDAY ROCIO Have Rx Brought To [facility] Home Medication- 200 mg 06/13/24 09:00 Please Speak With PO 07/13/24 08:59 Patient Caregiver To QDAY [facility]IO Have Rx Brought To [facility] Ondansetron HCl 4 mg 06/12/24 21:05 Ondansetron Inj 2 Mg/Ml Inj 2 Ml IV 07/12/24 21:04 Q6H PRN NAUSEA OR VOMITING Protocol Pantoprazole Sodium 40 mg 06/13/24 09:00 06/13/24 08:29 Pantoprazole Inj 40 Mg Vial IVP 07/13/24 08:59 40 mg QDAY ROCIO Administration Sennosides 1 tab 06/12/24 21:05 Senna Tablet GT 07/12/24 21:04 QDAY PRN constipation Protocol Valproic Acid 250 mg 06/12/24 21:30 06/13/24 08:28 Valproic Acid Syrup 250 Mg/5 Ml Udc GT 07/12/24 21:29 250 mg BID ROCIO Administration Plan 33-year-old male with past medical history of traumatic brain injury with contractures, history of seizures, myocarditis with residual neurological injury and probable prolonged QT syndrome presented to the ED with cough and shortness of breath. Patient is admitted for sepsis and acute hypoxic respiratory failure due to community-acquired pneumonia. #Sepsis and acute hypoxic respiratory failure #RSV, viral pneumonia #Lactic acidosis, improving Met 3/4 SIRS criteria Patient presented from fdc with shortness of breath and productive cough with phlegm. Patient is in chronic vegetative state s/p anoxic brain injury. Labs showed hemoglobin and white count within normal limits. Lactic acid was elevated on admission. Chest x-ray showed bilateral perihilar pneumonia with reduced respiratory effort. EKG showed sinus tachycardia with QTc 411 Vitals showed blood pressure 130/85, heart rate 114, respiratory rate 24 and febrile. Saturating 100% on 3 L NC. Patient with 3/4 SIRS criteria with tachycardia tachypnea and fever with possible source pneumonia and elevated lactic acid. Procalcitonin was negative. VBG was unremarkable. Flu and COVID test was negative. In the ED, patient received ceftriaxone and azithromycin x 1 and 2 L bolus of fluids. Lactic acid was 2.2 down trended to 2.0 Patient is positive for RSV Plan: Continue IV ceftriaxone 1 g once daily and azithromycin 500 mg once daily, [06/12/2024? Pending cocci serology Frequent nasopharyngeal and airway suctioning Breathing treatments and chest PT Aspiration precautions #Chronic persistent vegetative state s/p traumatic brain injury #History of seizure disorder Patient takes Keppra, clonazepam, baclofen and xcopri fdc. Plan: Continue home medications Seizure precautions #PEG tube #Hypoosmolar hyponatremia Patient is PEG tube dependent for nutrition; moreover, prone for electrolyte disturbances Patient does have a PEG tube feed in place clean and dry Plan: Resume PEG tube feeding Monitor with morning labs Replete as necessary IV fluid resuscitation when indicated Hospital Management: Lines: PIV Bowel: Senna Diet: PEG tube feedings with Jevity 1.5 GI prophylaxis: Protonix IV daily DVT prophylaxis: Heparin subcut twice daily Disposition: Treating HCAP, possible viral etiology will continue to monitor Code: Full Patient seen and examined with attending Dr. Lyle and senior resident Dr. Hero Nickerson, PGY-1 Attending Provider Attestation/Addendum I attest that I was physically present for the evaluation, physical examination, lab and imaging review of the patient with the residents. I discussed the case with the residents and agree with the findings and plans of care as documented above. Ayush Lyle MD
[2024-06-13 15:13] LABS: Cocci Serology, IgM Positive (Negative)
[2024-06-13 15:14] LABS: Cocid Sro, CF/ID (UCD) NO CHG* See Sep Rpt
[2024-06-13] MEDS: OLOPATADINE HCL 0.2% BOTH EYES (18:32)
[2024-06-13] MEDS: AZITHROMYCIN INJ 500 MG in SODIUM CHLORIDE 0.9% 250 ML 250 ML 250 MG IV (20:06)
[2024-06-14] VITALS (13 sets, daily range): BP systolic 108–134; BP diastolic 77–102; PULSE 99–130; RESP 14–30; TEMP 36.4–37.4; O2SAT 94–100; BMI 25.0
[2024-06-14] MEDS: BENZONATATE 100 MG CAPSULE 200 MG GT (00:54)
[2024-06-14] MEDS: ALBUTEROL/IPRATROPIUM (Duoneb) RT SOL 3 ML NEBU INH ×6 (02:39→22:35)
[2024-06-14] MEDS: BACLOFEN 10 MG TABLET GT ×3 (05:16→21:04)
[2024-06-14 05:58] LABS: Basophils # (Auto) 0.1 Thou/mm3 (0.0-0.2); Basophils % (Auto) 1 % (0-2.5); Eosinophils # (Auto) 0.1 Thou/mm3 (0.0-0.5); Eosinophils % (Auto) 2 % (0-10); Hematocrit 41.4 % (41.0-53.0); Hemoglobin 14.3 g/dL (13.5-16.0); Immature Granulocytes % (Auto) 0 % (0-0); Immature Granulocytes Auto 0.02 Thou/mm3 (0.00-0.00); Lymphocytes # (Auto) 1.1 Thou/mm3 (1.0-4.8); Lymphocytes % (Auto) 20 % (10-50); Mean Corpuscular HGB Conc 34.5 g/dl (31.0-37.0); Mean Corpuscular Hemoglobin 29.7 pg (25.0-35.0); Mean Corpuscular Volume 86 fL (80-100); Monocytes # (Auto) 1.2 Thou/mm3 (0.0-0.8); Monocytes % (Auto) 22 % (0-12); Neutrophils % (Auto) 55 % (37-80); Nucleated Red Blood Cell % 0 /100 WBC (0); Platelet Count 116 Thou/mm3 (140-440); RDW Standard Deviation 46.2 fL (35.1-43.9); Red Blood Count 4.82 Miln/mm3 (4.50-5.90); White Blood Count 5.5 Thou/mm3 (3.8-10.6)
[2024-06-14 08:04] LABS: Alanine Aminotransferase 37 U/L (10-49); Albumin, Serum 4.4 gm/dL (3.5-5.0); Albumin/Globulin Ratio 1.4 (1.2-2.2); Alkaline Phosphatase 108 U/L (46-116); Anion Gap 9 (7-16); Aspartate Amino Transferase 34 U/L (0-34); BUN/Creatinine Ratio 13 Ratio (12-20); Bilirubin,Total 0.3 mg/dL (0.3-1.2); Blood Urea Nitrogen 5 mg/dL (9-23); Calcium 9.6 mg/dL (8.3-10.6); Calcium (Corrected) 9.6 mg/dL (8.5-10.1); Carbon Dioxide 28.8 mMol/L (20.0-31.0); Chloride 93 mMol/L (98-107); Creatinine (Component) 0.4 mg/dL (0.6-1.3); Estimated Creatinine Clearance 230.4 mL/min (>60); Globulin 3.2 gm/dL (2.3-3.5); Glucose 121 mg/dL (74-106); Osmolality,Calculated 260 (275-295); Phosphorous 3.8 mg/dL (2.4-5.1); Potassium 3.7 mMol/L (3.4-5.1); Sodium 131 mMol/L (136-145); Total Protein 7.6 gm/dL (5.7-8.2); eGFR > 60 See Note
[2024-06-14] MEDS: OLOPATADINE HCL 0.2% BOTH EYES (09:21)
[2024-06-14] MEDS: PANTOPRAZOLE INJ 40 MG VIAL IVP (09:21)
[2024-06-14] MEDS: FLUCONAZOLE/NS 400 MG IVPB 400 MG/200 ML BAG 100 MG IV (09:22)
[2024-06-14] MEDS: cefTRIAXone 1,000 MG in SODIUM CHLORIDE 0.9% (P) 50 ML 100 MG IV (09:22)
[2024-06-14] MEDS: VALPROIC ACID SYRUP 250 MG/5 ML UDC GT ×2 (09:23→21:04)
[2024-06-14] MEDS: SENNA TABLET 1 TAB GT (09:23)
[2024-06-14] MEDS: lorataDINE 10 MG TABLET PO (09:23)
[2024-06-14] MEDS: clonazePAM 0.5 MG TABLET 1 MG GT ×2 (09:23→21:03)
[2024-06-14] MEDS: HEPARIN SOD INJ 5000 UNIT/ML VIAL SC ×2 (09:48→21:04)
[2024-06-14] MEDS: levETIRAcetam LIQD 500 MG/5 ML UDC 750 MG GT ×2 (11:19→21:04)
--- NOTE | 2024-06-14 13:24 | ESPR_ITS ---
<Statement entered by Gonsalo Monahan MD - 06/15/24 07:03> I discussed with and supervised the internal affairs investigator physician involved in the care of this patient. Patient assessment and plan was discussed with entire medicine team, including my attending. I agree with the assessment and plan as documented by internal affairs investigator doctor. Patient care was discussed with my attending physician Dr. Valdo Monahan, PGY-2 Documentation for date of: 06/14/24 Subjective Subjective Interval history: 06/14/2024: No acute overnight events to report. Patient seen and examined in hospital bed with minimal supplemental oxygen and saturating 93-94. Patient does have coarse lung sounds bilaterally and is actively coughing without much sputum production. Patient is positive for RSV and Cocci. ID has been consulted; appreciate recommendations. Suspicion for Cocci remain low 2/2 to patient being mostly bedbound and indoors, but will wait for UCD confirmatory testing. Will also look to discontinue IV antibiotics if proCal is negative with morning labs. Exam Vital Signs Temp Pulse Resp BP Pulse Ox O2 Del Method O2 Flow Rate 99.3 F 112 H 25 H 114/82 100 Nasal Cannula 1 06/14/24 08:00 06/14/24 11:07 06/14/24 11:07 06/14/24 08:00 06/14/24 11:07 06/14/24 08:00 06/14/24 11:07 Narrative Exam Physical Exam: GENERAL: Chronic vegetative state with contractures. Saturating well on 2 L NC. HEENT: NC, AT. Dry mucous membrane. EOMI, clear conjunctiva, oropharynx clear. HEART: RRR, normal S1/S2, no m/r/g LUNGS: Coarse breath sounds heard bilaterally, dry coughing, no wheeze/rales/rhonci ABDOMEN: Soft, nontender, nondistended. PEG tube placed; site look clean/dry EXTREMITIES: No peripheral edema, cyanosis or clubbing; there are contractures of the upper extremeties. NEUROLOGICAL: Chronic vegetative state. Limited due to medical condition Objective Labs 06/16/24 08:24 06/16/24 08:24 Labs: Laboratory Results - last 24 hr 06/13/24 06/13/24 06/14/24 04:25 13:30 04:48 WBC 5.5 RBC 4.82 Hgb 14.3 Hct 41.4 MCV 86 MCH 29.7 MCHC 34.5 RDW Std Deviation 46.2 H Plt Count 116 L D Neut % (Auto) 55 Lymph % (Auto) 20 [place] % (Auto) 22 H Eos % (Auto) 2 Baso % (Auto) 1 Neut # (Auto) 3.0 Lymph # (Auto) 1.1 [place] # (Auto) 1.2 H Eos # (Auto) 0.1 Baso # (Auto) 0.1 Immature Gran # (Auto) 0.02 H Absolute Nucleated RBC 0.00 Immature Gran % 0 Nucleated RBC % 0 Sodium Potassium Chloride Carbon Dioxide Anion Gap BUN Creatinine Estim Creat Clear Calc eGFR BUN/Creatinine Ratio Glucose Calculated Osmolality Calcium Corrected Calcium Phosphorus Magnesium Total Bilirubin AST ALT Alkaline Phosphatase Total Protein Albumin Globulin Albumin/Globulin Ratio Coccidioides IgM Ab Positive A RSV Rapid Positive A 06/14/24 06:50 WBC RBC Hgb Hct MCV MCH MCHC RDW Std Deviation Plt Count Neut % (Auto) Lymph % (Auto) [place] % (Auto) Eos % (Auto) Baso % (Auto) Neut # (Auto) Lymph # (Auto) [place] # (Auto) Eos # (Auto) Baso # (Auto) Immature Gran # (Auto) Absolute Nucleated RBC Immature Gran % Nucleated RBC % Sodium 131 L Potassium 3.7 Chloride 93 L Carbon Dioxide 28.8 Anion Gap 9 BUN 5 L Creatinine 0.4 L Estim Creat Clear Calc 230.4 eGFR > 60 BUN/Creatinine Ratio 13 Glucose 121 H Calculated Osmolality 260 L Calcium 9.6 Corrected Calcium 9.6 Phosphorus 3.8 Magnesium 2.0 Total Bilirubin 0.3 AST 34 ALT 37 Alkaline Phosphatase 108 Total Protein 7.6 Albumin 4.4 Globulin 3.2 Albumin/Globulin Ratio 1.4 Coccidioides IgM Ab RSV Rapid ABG Interpretation ABG results: 06/12/24 15:15 VBG pH 7.43 VBG pCO2 44 VBG pO2 73 H VBG Base Excess 4 H Quality Measures Quality Measures VTE prophylaxis (Heparin subcut twice daily) Assessment & Plan Assessment Current Active Medications: Generic Name Dose Route Start Last Admin Trade Name Freq PRN Reason Stop Dose Admin Acetaminophen 650 mg 06/12/24 21:05 06/13/24 15:26 Acetaminophen 325 Mg Tablet PO 07/12/24 21:04 650 mg Q6H PRN Administration Fever >100.4 or pain Protocol Acetaminophen 650 mg 06/12/24 21:05 Acetaminophen Supp 650 Mg Supp [place] 07/12/24 21:04 Q6H PRN PAIN SCALE 1-3 (mild Protocol Hydrocodone Bitart/Acetaminophen 1 tab 06/12/24 21:05 Hydrocodone/Apap 5/325 Tablet GT 06/17/24 21:04 Q4HR PRN PAIN SCALE 4-10(Mod-Sev Albuterol/Ipratropium 3 ml 06/12/24 23:00 06/14/24 11:06 Albuterol/Ipratropium (Duoneb) Rt Aleyda 3 Ml Nebu INH 07/12/24 22:59 3 ml Q4HRRT ROCIO Administration Baclofen 10 mg 06/12/24 22:00 06/14/24 05:16 Baclofen 10 Mg Tablet GT 07/12/24 21:59 10 mg TID ROCIO Administration Clonazepam 1 mg 06/12/24 21:15 06/14/24 09:23 Clonazepam 0.5 Mg Tablet GT 06/17/24 21:14 1 mg BID ROCIO Administration Olopatadine Hcl 0.2% 0 ea 06/13/24 18:15 06/14/24 09:21 Eye Drops BOTH EYES 07/13/24 18:14 1 drops QDAY ROCIO Administration Dextrose 25 ml 06/12/24 21:23 Dextrose 50%-Water Inj 50 Ml Syringe IV 07/12/24 21:22 Q15MIN PRN BG 50-70 responsive npo pt Dextrose 50 ml 06/12/24 21:23 Dextrose 50%-Water Inj 50 Ml Syringe IV 07/12/24 21:22 Q15MIN PRN BG <50 OR BG <70 & pt unresponsive Glucagon 1 mg 06/12/24 21:23 Glucagon Inj 1 Mg Vial IM Q15MIN PRN BG <70, and no IV access Guaifenesin/Dextromethorphan 1 each 06/12/24 21:11 Guaifenesin/Dm Tablet GT 07/12/24 21:10 Q4HR PRN COUGH Heparin Sodium (Porcine) 5,000 unit 06/12/24 21:15 06/14/24 09:48 Heparin Sod Inj 5000 Unit/Ml Vial SC 06/26/24 21:14 5,000 unit BID ROCIO Administration Azithromycin 500 mg/ Sodium 250 mls @ 250 mls/hr 06/13/24 21:00 06/13/24 20:06 Chloride IV 06/20/24 20:59 250 mls/hr QDAY@2100 ROCIO Administration Ceftriaxone Sodium 1,000 mg/ 50 mls @ 100 mls/hr 06/13/24 09:00 06/14/24 09:22 Sodium Chloride IV 06/20/24 08:59 100 mls/hr QDAY ROCIO Administration Fluconazole 400 mg in 200 mls @ 100 mls/hr 06/14/24 09:00 06/14/24 09:22 Diflucan/Ns Ivpb IV 06/21/24 08:59 100 mls/hr QDAY ROCIO Administration Levetiracetam 750 mg 06/14/24 11:00 06/14/24 11:19 Levetiracetam Liqd 500 Mg/5 Ml Udc GT 07/14/24 10:59 750 mg BID ROCIO Administration Loratadine 10 mg 06/13/24 09:00 06/14/24 09:23 Loratadine 10 Mg Tablet PO 07/13/24 08:59 10 mg QDAY ROCIO Administration Home Medication- 200 mg 06/13/24 09:00 06/14/24 09:23 Please Speak With PO 07/13/24 08:59 Not Given Patient Caregiver To QDAY ROCIO Have Rx Brought To [facility] Ondansetron HCl 4 mg 06/12/24 21:05 Ondansetron Inj 2 Mg/Ml Inj 2 Ml IV 07/12/24 21:04 Q6H PRN NAUSEA OR VOMITING Protocol Pantoprazole Sodium 40 mg 06/13/24 09:00 06/14/24 09:21 Pantoprazole Inj 40 Mg Vial IVP 07/13/24 08:59 40 mg QDAY ROCIO Administration Sennosides 1 tab 06/14/24 07:30 06/14/24 09:23 Senna Tablet GT 07/14/24 07:29 1 tab QDAY ROCIO Administration Protocol Valproic Acid 250 mg 06/12/24 21:30 06/14/24 09:23 Valproic Acid Syrup 250 Mg/5 Ml Udc GT 07/12/24 21:29 250 mg BID ROCIO Administration Plan 33-year-old male with past medical history of traumatic brain injury with contractures, history of seizures, myocarditis with residual neurological injury and probable prolonged QT syndrome presented to the ED with cough and shortness of breath. Patient is admitted for sepsis and acute hypoxic respiratory failure due to community-acquired pneumonia. #Sepsis and acute hypoxic respiratory failure #RSV, viral pneumonia #Cocci positive serology #Lactic acidosis, improving Met 3/4 SIRS criteria Patient presented from custodial with shortness of breath and productive cough with phlegm. Patient is in chronic vegetative state s/p anoxic brain injury. Labs showed hemoglobin and white count within normal limits. Lactic acid was elevated on admission. Chest x-ray showed bilateral perihilar pneumonia with reduced respiratory effort. EKG showed sinus tachycardia with QTc 411 Vitals showed blood pressure 130/85, heart rate 114, respiratory rate 24 and febrile. Saturating 100% on 3 L NC. Patient with 3/4 SIRS criteria with tachycardia tachypnea and fever with possible source pneumonia and elevated lactic acid. Procalcitonin was negative. VBG was unremarkable. Flu and COVID test was negative. In the ED, patient received ceftriaxone and azithromycin x 1 and 2 L bolus of fluids. Lactic acid was 2.2 down trended to 2.0 Patient is positive for RSV and Cocci serology Plan: Continue IV ceftriaxone 1 g once daily and azithromycin 500 mg once daily, [06/12/2024? Pending AM proCal will discontinue if negative Started Diflucan 400mg qday GT; lab send out to [facility] for confirmatory testing ID consulted - appreciate recommendations Frequent nasopharyngeal and airway suctioning Breathing treatments and chest PT Aspiration precautions #Thrombocytopenia Patient plts dropped from 156 to 116 Patient on subq heparin for DVT prophylaxis since 06/12 4 T Score: 1?points Low Probability of HIT (<5%) Plan: Will continue to monitor #Chronic persistent vegetative state s/p traumatic brain injury #History of seizure disorder Patient takes Keppra, clonazepam, baclofen and xcopri custodial. Plan: Patient on Keppra 750mg GT bid - switched dosage to accurately reflect home dose Continue home medications Seizure precautions #PEG tube #Hypoosmolar hyponatremia Patient is PEG tube dependent for nutrition; moreover, prone for electrolyte disturbances Patient does have a PEG tube feed in place clean and dry Plan: Resume PEG tube feeding Monitor with morning labs Replete as necessary IV fluid resuscitation when indicated Hospital Management: Lines: PIV Bowel: Senna Diet: PEG tube feedings with Jevity 1.5 GI prophylaxis: Protonix IV daily DVT prophylaxis: Heparin subcut twice daily Disposition: Treating HCAP, possible viral etiology will continue to monitor Code: DNR/I Patient seen and examined with attending Dr. Lyle and senior resident Dr. Hero Nickerson, PGY-1 Attending Provider Attestation/Addendum I attest that I was physically present for the evaluation, physical examination, lab and imaging review of the patient with the residents. I discussed the case with the residents and agree with the findings and plans of care as documented above. At bedside today, patient is on minimal supplemental oxygen, saturating well. He does have coarse breath sound with increased respiratory rate on exam. Patient tested positive for RSV and Cocci IgM, we will start him on Diflucan 400 daily. We will continue antibiotics for today, obtain serum procal for AM and if that is negative, we will DC antibiotics tomorrow. We will continue with chest physiotherapy and frequent NG suction. Discussed in detail with patient's mother at bedside, explained about his condition and further management plans. She also brought up code status, explained to her about code status, the mother wished the CODE STATUS to be changed to DNR/DNI. Wishing her wishes we will change his code status. Given his increased RR, we will monitor him closely. Ayush Lyle MD
--- NOTE | 2024-06-14 14:24 | EVENTNT_ITS ---
<Statement entered by Gonsalo Monahan MD - 06/15/24 07:04> I discussed with and supervised the grad intern physician involved in the care of this patient. Patient assessment and plan was discussed with entire medicine team, including my attending. I agree with the assessment and plan as documented by grad intern doctor. Patient care was discussed with my attending physician Dr. Valdo Monahan, PGY-2 Documentation for date of: 06/14/24 Event Note Event Note: 06/14/2024: Patient's mother Tona Munoz was bedside and requested to speak to Dr. Lyle and myself regarding the patient's CODE STATUS. Patient's mother would like to switch the patient's CODE STATUS to DNR/I. Patient's mother updated regarding the positive RSV and Cocci findings. Suspicion remains low for true cocci infection; however, patient has started treatment with IV Diflucan. Consulted ID regarding positive cocci serology. Will discontinue IV antibiotics if pro-Jerzy is low with morning labs tomorrow (06/14). Miguel Nickerson, PGY-1
[2024-06-14] MEDS: AZITHROMYCIN INJ 500 MG in SODIUM CHLORIDE 0.9% 250 ML 250 ML 250 MG IV (21:07)
[2024-06-15] VITALS (13 sets, daily range): BP systolic 108–136; BP diastolic 76–97; PULSE 100–132; RESP 20–40; TEMP 36.2–37.5; O2SAT 95–99
[2024-06-15] MEDS: ALBUTEROL/IPRATROPIUM (Duoneb) RT SOL 3 ML NEBU INH ×6 (02:55→22:40)
[2024-06-15] MEDS: BACLOFEN 10 MG TABLET GT ×3 (05:20→21:51)
[2024-06-15 05:53] LABS: Basophils % (Auto) 1 % (0-2.5); Eosinophils # (Auto) 0.1 Thou/mm3 (0.0-0.5); Eosinophils % (Auto) 2 % (0-10); Hemoglobin 14.6 g/dL (13.5-16.0); Immature Granulocytes % (Auto) 0 % (0-0); Immature Granulocytes Auto 0.01 Thou/mm3 (0.00-0.00); Lymphocytes # (Auto) 1.3 Thou/mm3 (1.0-4.8); Lymphocytes % (Auto) 24 % (10-50); Mean Corpuscular Hemoglobin 29.3 pg (25.0-35.0); Mean Corpuscular Volume 86 fL (80-100); Monocytes # (Auto) 1.1 Thou/mm3 (0.0-0.8); Monocytes % (Auto) 19 % (0-12); Neutrophils # (Auto) 2.9 Thou/mm3 (1.8-7.7); Neutrophils % (Auto) 53 % (37-80); Nucleated Red Blood Cell % 0 /100 WBC (0); Platelet Count 183 Thou/mm3 (140-440); RDW Standard Deviation 45.9 fL (35.1-43.9); Red Blood Count 4.98 Miln/mm3 (4.50-5.90); White Blood Count 5.4 Thou/mm3 (3.8-10.6)
[2024-06-15 06:32] LABS: Alanine Aminotransferase 48 U/L (10-49); Albumin, Serum 4.6 gm/dL (3.5-5.0); Albumin/Globulin Ratio 1.3 (1.2-2.2); Alkaline Phosphatase 109 U/L (46-116); Anion Gap 11 (7-16); Aspartate Amino Transferase 47 U/L (0-34); BUN/Creatinine Ratio 13 Ratio (12-20); Bilirubin,Total 0.2 mg/dL (0.3-1.2); Blood Urea Nitrogen < 5 mg/dL (9-23); Calcium 10.2 mg/dL (8.3-10.6); Calcium (Corrected) 10.2 mg/dL (8.5-10.1); Carbon Dioxide 26.6 mMol/L (20.0-31.0); Chloride 94 mMol/L (98-107); Creatinine (Component) 0.4 mg/dL (0.6-1.3); Estimated Creatinine Clearance 230.4 mL/min (>60); Globulin 3.5 gm/dL (2.3-3.5); Glucose 107 mg/dL (74-106); Magnesium 1.9 mg/dL (1.6-2.6); Osmolality,Calculated 261 (275-295); Phosphorous 3.5 mg/dL (2.4-5.1); Potassium 4.1 mMol/L (3.4-5.1); Procalcitonin 0.09 ng/ml (0.0-0.49); Sodium 132 mMol/L (136-145); Total Protein 8.1 gm/dL (5.7-8.2); eGFR > 60 See Note
--- NOTE | 2024-06-15 07:27 | XR_ITS ---
Examination: CTA chest with intravenous contrast 2-D reconstructions 3-D reconstructions, vascular Date and time of exam: June 15, 2024 1527 hrs. Indications: Onset shortness of breath chest pain today CTDI: vol (mGy) 14.9 DLP: (mGycm) 574 Technique: Multiple axial sections of the thorax have been obtained. 3 mm slice thickness, from below the hemidiaphragms to above the apices of the lungs. Mediastinal and lung density settings have been obtained. 2-D sagittal and coronal reconstructions. 3-D angiographic renderings, 3-D volume renderings, 3D post processing, vascular maximum intensity projections obtained. Contrast administered is 100 cc [id number]. Low dose protocols were performed. One or more of the following dose reduction techniques were used; automated exposure control, adjustment of the mA and/or KV according to patient size, use of iterative reconstruction technique. Findings: AP dimension ascending thoracic aorta 3.2 cm No pulmonary artery filling defects Bilateral hilar lymphadenopathy Moderate vascular congestion Bibasilar pneumonia No visualized liver or splenic lesion No gallstones No pancreatic or adrenal mass Kidneys partially visualized no hydronephrosis Impression: Negative for pulmonary artery emboli Hilar lymphadenopathy Bibasilar pneumonia
--- NOTE | 2024-06-15 07:34 | XR_ITS ---
Examination: AP chest single view Technique one AP portable semiupright chest single view Exam date and time: June 15, 2024 0854 hrs. Comparison June 12, 2024 Indications: Sepsis alert, shortness of breath today. Findings: Early bilateral perihilar pneumonia Normal heart size The osseous structures are intact Impression: Early bilateral perihilar pneumonia
[2024-06-15 08:18] LABS: Base Excess 6 (-3-3); HCO3 30 mEq/L (20-26); Inspired Oxygen, FIO2 21 %; O2 Saturation 94 % (91-98); PCO2 44 mmHg (32.0-48.0); PO2 67 mmHg (83-108); pH, Arterial 7.45 (7.35-7.45)
[2024-06-15 08:19] LABS: Allen Test Performed/OK; Puncture Site Right Radial
--- NOTE | 2024-06-15 09:09 | PD.IDPROG ---
Subjective Subjective Interval history: non communicative man with pos cocci locally and rsv too. procal neg. flucon is same po and iv, so no value to iv route. confirmation of pos at [facility] will take about a week. Exam Vital Signs Temp Pulse Resp BP Pulse Ox O2 Del Method O2 Flow Rate 97.1 F 132 H 40 H 133/94 H 98 Nasal Cannula 1 06/15/24 03:48 06/15/24 06:38 06/15/24 06:38 06/15/24 03:48 06/15/24 06:38 06/14/24 16:00 06/15/24 06:38 Narrative Exam see dictation Objective - Internal Medicine Labs 06/15/24 04:48 06/15/24 04:48 Labs: Laboratory Results - last 24 hr 06/15/24 06/15/24 04:48 07:26 WBC 5.4 RBC 4.98 Hgb 14.6 Hct 43.0 MCV 86 MCH 29.3 MCHC 34.0 RDW Std Deviation 45.9 H Plt Count 183 D Neut % (Auto) 53 Lymph % (Auto) 24 [place] % (Auto) 19 H Eos % (Auto) 2 Baso % (Auto) 1 Neut # (Auto) 2.9 Lymph # (Auto) 1.3 [place] # (Auto) 1.1 H Eos # (Auto) 0.1 Baso # (Auto) 0.0 Immature Gran # (Auto) 0.01 H Absolute Nucleated RBC 0.00 Immature Gran % 0 Nucleated RBC % 0 Puncture Site Right Radial ABG pH 7.45 ABG pCO2 44 ABG pO2 67 L ABG HCO3 30 H ABG O2 Saturation 94 ABG Base Excess 6 H FiO2 21 Sodium 132 L Potassium 4.1 Chloride 94 L Carbon Dioxide 26.6 Anion Gap 11 BUN < 5 L Creatinine 0.4 L Estim Creat Clear Calc 230.4 eGFR > 60 BUN/Creatinine Ratio 13 Glucose 107 H Calculated Osmolality 261 L Calcium 10.2 Corrected Calcium 10.2 H Phosphorus 3.5 Magnesium 1.9 Total Bilirubin 0.2 L AST 47 H ALT 48 Alkaline Phosphatase 109 Total Protein 8.1 Albumin 4.6 Globulin 3.5 Albumin/Globulin Ratio 1.3 Procalcitonin 0.09 ABG Interpretation ABG results: 06/12/24 06/15/24 15:15 07:26 ABG pH 7.45 ABG pCO2 44 ABG pO2 67 L ABG HCO3 30 H ABG O2 Saturation 94 ABG Base Excess 6 H VBG pH 7.43 VBG pCO2 44 VBG pO2 73 H VBG Base Excess 4 H Assessment & Plan A&P Narrative rsv cocci pos sz disorder mr/dd,now dnr at age 34 flucon can be crushed and given per gt if po not a go. if cocci neg at [facility], then stop the flucon home at your discretion. Time Spent With Patient Time: Total time spent is greater than 50% in coordination of care (as documented) at patient's floor/unit and/or counseling patient:
[2024-06-15] MEDS: levETIRAcetam LIQD 500 MG/5 ML UDC 750 MG GT ×2 (09:10→21:50)
[2024-06-15] MEDS: PANTOPRAZOLE INJ 40 MG VIAL IVP (09:11)
[2024-06-15] MEDS: VALPROIC ACID SYRUP 250 MG/5 ML UDC GT ×2 (09:11→21:51)
[2024-06-15] MEDS: SENNA TABLET 1 TAB GT (09:11)
[2024-06-15] MEDS: lorataDINE 10 MG TABLET PO (09:11)
[2024-06-15] MEDS: clonazePAM 0.5 MG TABLET 1 MG GT ×2 (09:11→21:51)
[2024-06-15] MEDS: OLOPATADINE HCL 0.2% BOTH EYES (09:12)
[2024-06-15] MEDS: HEPARIN SOD INJ 5000 UNIT/ML VIAL SC ×2 (09:17→21:55)
--- NOTE | 2024-06-15 09:43 | ESCONSULT_ITS ---
<Statement entered by Danile Cantrell MD - 06/17/24 17:47> pt seen with resident all findings confirmed. HPI Data of Consult Consult date: 06/15/24 Requesting Physician: Royal Valle MD Admitting Provider: Royal Valle MD Attending Provider: Royal Valle MD Primary Care Provider: Dheeraj Portillo MD Consult Narrative Reason for consult: Cocci and RSV positive History of present illness: This patient is a 33-year-old male with past medical history of traumatic brain injury with contractures since and 2002 leading to anoxic brain injury and persistent vegetative state, history of seizures, myocarditis with residual neurological injury and probable prolonged QT syndrome, PEG tube placed since accident doing swimming at school presented with productive cough and shortness of breath from last couple of days. On presentation, patient was found in persistent vegetative state without ability to track and was also found to have contracted limbs. Patient was sent from [facility] and he is conserved.[facility] Counselor Dana Esparza Ph no [phone]. I tried calling on the phone number but was not able to reach out for CODE STATUS. Voicemail was full therefore voicemail could not be sent out. Patient code status was placed based on previous chart review. ED course: In the ED, patient was hypertensive with blood pressure 130/85, tachycardic heart rate 114 bpm, tachypneic respiratory rate 24 and febrile 100.8. Patient was saturating 100% on 3 L NC. Labs were unremarkable including white count and hemoglobin stable. Chemistry panel showed hyponatremia sodium 125. Serum osmolality 249. Kidney functions were stable. Blood glucose stable. Initial lactic acid was elevated at 2.2 down trended to 2.0. Troponin I was negative. Lipase negative. Urinalysis was unremarkable. Influenza and COVID was negative. EKG showed sinus tachycardia with QTc 411. Chest x-ray showed bilateral perihilar pneumonia. Blood cultures and urine cultures were ordered. Previous sputum cultures showed Pseudomonas sensitive to Zosyn. In the ED, patient received ceftriaxone and azithromycin x 1 and 2 L bolus of fluids. PMH: As above SH: Lives in [facility] since 2015. Never smoker David or illicit drug use. FH: None Allergies: Penicillin Medications: Baclofen, clonazepam, levetiracetam, valproic acid, Olaptadine eyedrops,xcorpi Patient is admitted for further workup and management of sepsis and acute hypoxic respiratory failure due to community-acquired pneumonia. 06/15/24: Patient was seen and examined at the bedside this morning. Patient is nonverbal and has spastic decorticate quadriplegia. ID specialist team was consulted for positive cocci serology and RSV. Vitals showed tachycardia tachypnea and patient was saturating 98% on 1 L NC. Blood pressure was mildly elevated. Patient is also currently being managed for community-acquired pneumonia her blood cultures remain negative. MRSA screen negative. Labs showed normal white count and hemoglobin stable. Platelets slightly dropped. ABGs showed pH 7.45, pCO2 67 and bicarb 30. Sodium improved. Kidney functions remained stable. Creatinine kinase 740. Procalcitonin was negative. Repeat chest x-ray showed bilateral perihilar pneumonia. --> Recommended to continue with fluconazole and await on final cocci serology from [facility] and if negative consider discontinuing fluconazole. Continue with breathing treatments and chest PT. Frequent suctioning recommended. Agreeable to discontinue antibiotics given procalcitonin and blood cultures negative. Symptomatic management for RSV. Rest of the management as per primary care team. cc:: cc: Royal Valle MD Review of Systems Review of Systems Systems Reviewed: All systems reviewed, normal except as documented Past Medical History Past Medical History NEUROLOGIC: Positive Neurological Disorders, Seizures and Traumatic Brain Injury RESPIRATORY: Positive Pneumonia Social History SMOKING STATUS: Smoker, status unknown Exam Vital Signs Temp Pulse Resp BP Pulse Ox O2 Del Method O2 Flow Rate 97.1 F 132 H 40 H 133/94 H 98 Nasal Cannula 1 06/15/24 03:48 06/15/24 06:38 06/15/24 06:38 06/15/24 03:48 06/15/24 06:38 06/14/24 16:00 06/15/24 06:38 Narrative Exam GENERAL APPEARANCE: Patient is in chronic vegetative state and had contractures. Saturating well on 1 L NC. HEENT: NC, AT. Dry mucous membrane. EOMI, clear conjunctiva, oropharynx clear. NECK: Supple without lymphadenopathy. No stiffness or restricted ROM. HEART: Regular rate and regular rhythm, normal S1/S2, no m/r/g LUNGS: coarse breath sounds bilateral and Rhonchi heard ABDOMEN: Soft, nontender, nondistended with good bowel sounds heard. PEG tube placed BACK: No CVAT, no obvious deformity. EXTREMITIES: No edema. Spastic quadriplegia with contractures NEUROLOGICAL: Chronic vegetative state. Limited due to medical condition Skin: Warm and dry without any rash. Psych: Unable to assess Results Labs 06/15/24 04:48 06/15/24 04:48 Labs: Short CBC 06/15/24 Range/Units 04:48 WBC 5.4 (3.8-10.6) Thou/mm3 Hgb 14.6 (13.5-16.0) g/dL Hct 43.0 (41.0-53.0) % Plt Count 183 D (140-440) Thou/mm3 BMP 06/15/24 04:48 Sodium 132 L Potassium 4.1 Chloride 94 L Carbon Dioxide 26.6 BUN < 5 L Creatinine 0.4 L Glucose 107 H Calcium 10.2 Liver Function 06/15/24 Range/Units 04:48 Total Bilirubin 0.2 L (0.3-1.2) mg/dL AST 47 H (0-34) U/L ALT 48 (10-49) U/L Alkaline Phosphatase 109 (46-116) U/L Albumin 4.6 (3.5-5.0) gm/dL ABG Interpretation ABG results: 06/12/24 06/15/24 15:15 07:26 ABG pH 7.45 ABG pCO2 44 ABG pO2 67 L ABG HCO3 30 H ABG O2 Saturation 94 ABG Base Excess 6 H VBG pH 7.43 VBG pCO2 44 VBG pO2 73 H VBG Base Excess 4 H Quality Measures Quality Measures VTE prophylaxis (Heparin subcut twice daily) Medications Home Medications and Allergies Home Medications ?Medication ?Instructions ?Recorded ?Confirmed ?Type ascorbic acid (vitamin C) 500 mg 500 mg feeding tube D AILY 12/24/23 06/13/24 History tablet (Vitamin C) baclofen 10 mg tablet 10 mg feeding tube Q8HR 11/2806/13/24 History cenobamate 200 mg tablet (Xcopri) 200 mg feeding tube DAILY 12/24/23 12/24/23 History clonazepam 1 mg tablet 1 mg feeding tube BID 12/24/23 History loratadine 10 mg tablet 10 mg feeding tube DAILY 06/13/24 History olopatadine 0.2 % eye drops 1 drp ophthalmic (eye) ALEXY LY 12/24/23 06/13/24 History valproic acid (as sodium salt) 250 250 mg feeding tube BID 12/24/23 06/13/24 History mg/5 mL oral solution zinc oxide-cod liver oil 40 % 1 applic topical TID PRN diaper 06/13/24 06/13/24 History topical paste (Diaper Rash) rash Allergies Allergy/AdvReac Type Severity Reaction Status Date / Time Penicillins Allergy Verified 11/11/22 22:23 Visit Medications Acetaminophen (Acetaminophen 325 Mg Tablet) 650 mg PO Q6H PRN; Protocol PRN Reason: Fever >100.4 or pain Stop: 07/12/24 21:04 Last Admin: 06/13/24 15:26 Dose: 650 mg Acetaminophen (Acetaminophen Supp 650 Mg Supp) 650 mg KS Q6H PRN; Protocol PRN Reason: PAIN SCALE 1-3 (mild Stop: 07/12/24 21:04 Hydrocodone Bitart/Acetaminophen (Hydrocodone/Apap 5/325 Tablet) 1 tab GT Q4HR PRN PRN Reason: PAIN SCALE 4-10(Mod-Sev Stop: 06/17/24 21:04 Albuterol/Ipratropium (Albuterol/Ipratropium (Duoneb) Rt Aleyda 3 Ml Nebu) 3 ml INH Q4HRRT ROCIO Stop: 07/12/24 22:59 Last Admin: 06/15/24 06:38 Dose: 3 ml Baclofen (Baclofen 10 Mg Tablet) 10 mg GT TID ROCIO Stop: 07/12/24 21:59 Last Admin: 06/15/24 05:20 Dose: 10 mg Clonazepam (Clonazepam 0.5 Mg Tablet) 1 mg GT BID ROCIO Stop: 06/17/24 21:14 Last Admin: 06/15/24 09:11 Dose: 1 mg Olopatadine Hcl 0.2% (Eye Drops) 0 ea BOTH EYES QDAY [facility] Stop: 07/13/24 18:14 Last Admin: 06/15/24 09:12 Dose: 2 drops Dextrose (Dextrose 50%-Water Inj 50 Ml Syringe) 25 ml IV Q15MIN PRN PRN Reason: BG 50-70 responsive npo pt Stop: 07/12/24 21:22 Dextrose (Dextrose 50%-Water Inj 50 Ml Syringe) 50 ml IV Q15MIN PRN PRN Reason: BG <50 OR BG <70 & pt unresponsive Stop: 07/12/24 21:22 Fluconazole (Fluconazole 100 Mg Tablet) 400 mg PO QDAY [facility] Stop: 06/22/24 09:14 Glucagon (Glucagon Inj 1 Mg Vial) 1 mg IM Q15MIN PRN PRN Reason: BG <70, and no IV access Guaifenesin/Dextromethorphan (Guaifenesin/Dm Tablet) 1 each GT Q4HR PRN PRN Reason: COUGH Stop: 07/12/24 21:10 Heparin Sodium (Porcine) (Heparin Sod Inj 5000 Unit/Ml Vial) 5,000 unit SC BID [facility] Stop: 06/26/24 21:14 Last Admin: 06/15/24 09:17 Dose: 5,000 unit Levetiracetam (Levetiracetam Liqd 500 Mg/5 Ml Udc) 750 mg GT BID [facility] Stop: 07/14/24 10:59 Last Admin: 06/15/24 09:10 Dose: 750 mg Loratadine (Loratadine 10 Mg Tablet) 10 mg PO QDAY [facility] Stop: 07/13/24 08:59 Last Admin: 06/15/24 09:11 Dose: 10 mg Home Medication- Please Speak With Patient Caregiver To Have Rx Brought To [facility] 200 mg PO QDAY [facility] Stop: 07/13/24 08:59 Last Admin: 06/15/24 09:13 Dose: Not Given Ondansetron HCl (Ondansetron Inj 2 Mg/Ml Inj 2 Ml) 4 mg IV Q6H PRN; Protocol PRN Reason: NAUSEA OR VOMITING Stop: 07/12/24 21:04 Pantoprazole Sodium (Pantoprazole Inj 40 Mg Vial) 40 mg IVP QDAY [facility] Stop: 07/13/24 08:59 Last Admin: 06/15/24 09:11 Dose: 40 mg Sennosides (Senna Tablet) 1 tab GT QDAY [facility]; Protocol Stop: 07/14/24 07:29 Last Admin: 06/15/24 09:11 Dose: 1 tab Valproic Acid (Valproic Acid Syrup 250 Mg/5 Ml Udc) 250 mg GT BID [facility] Stop: 07/12/24 21:29 Last Admin: 06/15/24 09:11 Dose: 250 mg Discontinued Medications Acetaminophen (Acetaminophen Supp 650 Mg Supp) 650 mg KS X1 ONE Stop: 06/12/24 16:07 Last Admin: 06/12/24 16:36 Dose: 650 mg Benzonatate (Benzonatate 100 Mg Capsule) 200 mg PO X1 ONE; Protocol Stop: 06/14/24 00:32 Benzonatate (Benzonatate 100 Mg Capsule) 200 mg GT X1 ONE; Protocol Stop: 06/14/24 00:32 Last Admin: 06/14/24 00:54 Dose: 200 mg Fluconazole (Fluconazole Susp 40 Mg/Ml Ml) 400 mg GT QDAY [facility] Stop: 06/21/24 08:59 Sodium Chloride (Ns) 1,000 mls @ 999 mls/hr IV .Q1H1M ONE Stop: 06/12/24 15:53 Last Infusion: 06/12/24 18:16 Dose: Infused Ceftriaxone Sodium 1,000 mg/ (Sodium Chloride) 50 mls @ 100 mls/hr IV X1 ONE Stop: 06/12/24 17:14 Last Infusion: 06/12/24 17:58 Dose: Infused Azithromycin 500 mg/ Sodium (Chloride) 250 mls @ 250 mls/hr IV X1 ONE Stop: 06/12/24 19:21 Last Infusion: 06/12/24 20:00 Dose: Infused Sodium Chloride (Ns) 1,000 mls @ 999 mls/hr IV .Q1H1M ONE Stop: 06/12/24 19:22 Last Infusion: 06/12/24 20:10 Dose: Infused Sodium Chloride (Ns) 1,000 mls @ 75 mls/hr IV .[id number] ROCIO Stop: 06/13/24 10:34 Last Admin: 06/12/24 23:10 Dose: 75 mls/hr Ceftriaxone Sodium/Dextrose (Rocephin/D5w 1gm Iv Premix) 50 mls @ 100 mls/hr IV QDAY [facility] Stop: 06/20/24 08:59 Azithromycin 500 mg/ Sodium (Chloride) 250 mls @ 250 mls/hr IV QDAY@2100 [facility] Stop: 06/20/24 20:59 Last Admin: 06/14/24 21:07 Dose: 250 mls/hr Magnesium Sulfate (Magnesium Sulfate Ivpb) 2 gm in 50 mls @ 25 mls/hr IV X1 ONE Stop: 06/12/24 23:22 Last Infusion: 06/13/24 01:25 Dose: Infused Ceftriaxone Sodium 1,000 mg/ (Sodium Chloride) 50 mls @ 100 mls/hr IV QDAY [facility] Stop: 06/20/24 08:59 Last Infusion: 06/14/24 09:52 Dose: Infused Fluconazole (Diflucan/Ns Ivpb) 400 mg in 200 mls @ 100 mls/hr IV QDAY [facility] Stop: 06/21/24 08:59 Last Infusion: 06/14/24 11:22 Dose: Infused Levetiracetam (Levetiracetam Liqd 500 Mg/5 Ml Udc) 100 mg PO BID [facility] Stop: 07/12/24 22:59 Last Admin: 06/13/24 20:05 Dose: 100 mg Levetiracetam (Levetiracetam Liqd 500 Mg/5 Ml Udc) 100 mg GT BID [facility] Stop: 07/14/24 08:59 Levetiracetam (Levetiracetam Liqd 500 Mg/5 Ml Udc) 100 mg GT BID [facility] Stop: 07/14/24 08:59 Home Medication- Please Speak With Patient Caregiver To Have Rx Brought To [facility] 1 drops BOTH EYES QDAY [facility] Stop: 07/13/24 08:59 Last Admin: 06/13/24 14:32 Dose: Not Given Sennosides (Senna Tablet) 1 tab GT QDAY PRN; Protocol PRN Reason: constipation Stop: 07/12/24 21:04 Assessment & Plan Plan This 33-year-old male with past medical history of traumatic brain injury with contractures, history of seizures, myocarditis with residual neurological injury and probable prolonged QT syndrome presented to the ED with cough and shortness of breath. Patient is admitted for sepsis and acute hypoxic respiratory failure due to community-acquired pneumonia. #Sepsis and acute hypoxic respiratory failure #RSV, viral pneumonia #Cocci positive serology #Lactic acidosis, improving Met 3/4 SIRS criteria Patient presented from [facility] with shortness of breath and productive cough with phlegm. Patient is in chronic vegetative state s/p anoxic brain injury. Labs showed hemoglobin and white count within normal limits. Lactic acid was elevated on admission. Chest x-ray showed bilateral perihilar pneumonia with reduced respiratory effort. EKG showed sinus tachycardia with QTc 411 Vitals showed blood pressure 130/85, heart rate 114, respiratory rate 24 and febrile. Saturating 100% on 3 L NC. Patient with 3/4 SIRS criteria with tachycardia tachypnea and fever with possible source pneumonia and elevated lactic acid. Procalcitonin was negative. VBG was unremarkable. Flu and COVID test was negative. In the ED, patient received ceftriaxone and azithromycin x 1 and 2 L bolus of fluids. Lactic acid was 2.2 down trended to 2.0 Patient is positive for RSV and Cocci serology Plan: ? Continue with p.o. fluconazole for now and if results are negative from [facility] consider discontinuing ?Antibiotics were discontinued given procalcitonin being negative ?Pend [facility] labs for confirmatory testing ?Frequent nasopharyngeal and airway suctioning ?Breathing treatments and chest PT ?Aspiration precautions ? Symptomatic management for RSV ? Follow-up with other viral markers including hepatitis C and HIV Other Primary Problems: #Thrombocytopenia #Chronic persistent vegetative state s/p traumatic brain injury #History of seizure disorder #PEG tube #Hypoosmolar hyponatremia Rest of the management as per primary care team.Thank you for consulting infectious disease team. Plan of care was discussed with ID specialist, Dr Óscar Moore MD,PGY2
[2024-06-15 10:08] LABS: Creatine Kinase 740 U/L (34-171)
[2024-06-15] MEDS: FLUCONAZOLE 100 MG TABLET 400 MG PO (10:08)
[2024-06-15 10:50] LABS: Hepatitis C Antibody Non Reactive (Non React)
[2024-06-15 11:15] LABS: HIV (1&2) Antibody Rapid Non-Reactive
--- NOTE | 2024-06-15 12:23 | ESCONSULT_ITS ---
RE: OBED MOE : 1990 DATE OF CONSULTATION: 06/15/2024 REFERRING PHYSICIAN: Royal Valle MD REASON FOR CONSULTATION: Positive [place] fever test. HISTORY OF PRESENT ILLNESS: The patient is an unfortunate gentleman who does not interact much. His history is obtained entirely from the record. He is unable to augment the history in any way. 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 Procalcitonin is negative, but he could have had RSV, we do not know. Because of that, we will have to treat him with fluconazole noting that orally it works the same as IV. He is also mildly hypoxic, which is new. He has been made DNR since he has come to the hospital, Dr. Landin apparently did his admitting information, so she is also familiar with his case. He had traumatic brain injury with contractures and has had trouble since 2002. He is persistently vegetative. He has a history of seizures as well and residual myocarditis and prolonged QT. He has a PEG tube. Testing for COVID was negative. Chest x-ray showed bilateral perihilar pneumonia. He is mildly hypoxic. The patient responded well to IV fluids. It is unclear whether he truly has valley fever or not. He has been in the same facility since 2016. PAST MEDICAL HISTORY: Include seizure disorder, traumatic brain injury with contractures and anoxic brain injury and persistent vegetative state as well as seizures and chronic QT syndrome. SURGICAL HISTORY: Include feeding tube placement. The patient is followed by [facility], Dana Esparza, phone number [phone]. Code status was placed based on prior chart review. ALLERGIES: see record . IMMUNIZATIONS: see database. MEDICATIONS: His home medications are reviewed. Please see the list for details. PHYSICAL EXAMINATION: General: On exam, the patient is unable to interact and nonverbal. He is on supplemental oxygen, but he is on only one liter and not a lot. On exam, the patient is nonverbal. He is on supplemental oxygen as mentioned. HEENT: Benign. He has some dry mucous within the mouth. Otherwise, no striking changes are appreciated. Heart: Benign. Lungs: Benign. Abdomen: Benign. He does not have any respiratory difficulties at this time. There is no virus respiratory panel available readily. He may have had some other virus as well. We just do not know that. It is unclear if he does not get outside. Valley fever is largely not spread indoors, so it is less likely to be Valley fever, but it could be that sometimes group homes will take their clients out of doors for fresh air from time to time that may expose them to other things though, so it is a debatable situation. ASSESSMENT: 1. Positive [place] fever test. 2. Anoxic brain injury. 3. Negative procalcitonin. RECOMMENDATIONS: I am okay with him being on fluconazole. I would make sure the doses of 400 mg a day, which is the same IV and orally. It should be continued. There is no problem giving the 400 mg a day as soon as he has some renal insufficiency, it could be administered because we will give higher doses if necessary. He does not have any renal insufficiency, so at this point, I am happy to see him if he does have cocci, but we need a positive test at [facility] as well as his x-ray report to make that diagnosis. DT: 09:54:39 TT: 11:07:00 Ref: [id number] - TID: [id number] MTDD
--- NOTE | 2024-06-15 17:41 | ESPR_ITS ---
Documentation for date of: 06/15/24 Subjective Subjective Interval history: Antibiotics stopped as ProCal was negative and patient is afebrile. In morning patient was tachycardic and tachypneic. There was some concern for pulmonary embolism, ABG was within normal limits, chest CTA was ordered which indicated no PE. We anticipate to discharge patient within 24 to 48 hours. Exam Vital Signs Temp Pulse Resp BP Pulse Ox O2 Del Method O2 Flow Rate 97.8 F 118 H 25 H 108/76 95 Nasal Cannula 1 06/15/24 16:00 06/15/24 16:00 06/15/24 16:00 06/15/24 16:00 06/15/24 16:00 06/15/24 16:00 06/15/24 16:00 Narrative Exam Physical Exam: GENERAL: Chronic vegetative state with contractures. Saturating well on 2 L NC. HEENT: NC, AT. Dry mucous membrane. EOMI, clear conjunctiva, oropharynx clear. HEART: RRR, normal S1/S2, no m/r/g LUNGS: Coarse breath sounds heard bilaterally, dry coughing, no wheeze/rales/rhonci ABDOMEN: Soft, nontender, nondistended. PEG tube placed; site look clean/dry EXTREMITIES: No peripheral edema, cyanosis or clubbing; there are contractures of the upper extremeties. NEUROLOGICAL: Chronic vegetative state. Limited due to medical condition Objective Labs 06/16/24 08:24 06/16/24 08:24 Labs: Laboratory Results - last 24 hr 06/15/24 06/15/24 04:48 07:26 WBC 5.4 RBC 4.98 Hgb 14.6 Hct 43.0 MCV 86 MCH 29.3 MCHC 34.0 RDW Std Deviation 45.9 H Plt Count 183 D Neut % (Auto) 53 Lymph % (Auto) 24 Villalba % (Auto) 19 H Eos % (Auto) 2 Baso % (Auto) 1 Neut # (Auto) 2.9 Lymph # (Auto) 1.3 Villalba # (Auto) 1.1 H Eos # (Auto) 0.1 Baso # (Auto) 0.0 Immature Gran # (Auto) 0.01 H Absolute Nucleated RBC 0.00 Immature Gran % 0 Nucleated RBC % 0 Puncture Site Right Radial ABG pH 7.45 ABG pCO2 44 ABG pO2 67 L ABG HCO3 30 H ABG O2 Saturation 94 ABG Base Excess 6 H FiO2 21 Sodium 132 L Potassium 4.1 Chloride 94 L Carbon Dioxide 26.6 Anion Gap 11 BUN < 5 L Creatinine 0.4 L Estim Creat Clear Calc 230.4 eGFR > 60 BUN/Creatinine Ratio 13 Glucose 107 H Calculated Osmolality 261 L Calcium 10.2 Corrected Calcium 10.2 H Phosphorus 3.5 Magnesium 1.9 Total Bilirubin 0.2 L AST 47 H ALT 48 Alkaline Phosphatase 109 Total Creatine Kinase 740 H Total Protein 8.1 Albumin 4.6 Globulin 3.5 Albumin/Globulin Ratio 1.3 Procalcitonin 0.09 Hepatitis C Antibody Non Reactive HIV 1&2 Antibody Rapid Non-Reactive ABG Interpretation ABG results: 06/12/24 06/15/24 15:15 07:26 ABG pH 7.45 ABG pCO2 44 ABG pO2 67 L ABG HCO3 30 H ABG O2 Saturation 94 ABG Base Excess 6 H VBG pH 7.43 VBG pCO2 44 VBG pO2 73 H VBG Base Excess 4 H Quality Measures Quality Measures VTE prophylaxis (Heparin subcut twice daily) Assessment & Plan Assessment Current Active Medications: Generic Name Dose Route Start Last Admin Trade Name Freq PRN Reason Stop Dose Admin Acetaminophen 650 mg 06/12/24 21:05 06/13/24 15:26 Acetaminophen 325 Mg Tablet PO 07/12/24 21:04 650 mg Q6H PRN Administration Fever >100.4 or pain Protocol Acetaminophen 650 mg 06/12/24 21:05 Acetaminophen Supp 650 Mg Supp [place] 07/12/24 21:04 Q6H PRN PAIN SCALE 1-3 (mild Protocol Hydrocodone Bitart/Acetaminophen 1 tab 06/12/24 21:05 Hydrocodone/Apap 5/325 Tablet GT 06/17/24 21:04 Q4HR PRN PAIN SCALE 4-10(Mod-Sev Albuterol/Ipratropium 3 ml 06/12/24 23:00 06/15/24 14:29 Albuterol/Ipratropium (Duoneb) Rt Aleyda 3 Ml Nebu INH 07/12/24 22:59 3 ml Q4HRRT ROCIO Administration Baclofen 10 mg 06/12/24 22:00 06/15/24 14:18 Baclofen 10 Mg Tablet GT 07/12/24 21:59 10 mg TID ROCIO Administration Clonazepam 1 mg 06/12/24 21:15 06/15/24 09:11 Clonazepam 0.5 Mg Tablet GT 06/17/24 21:14 1 mg BID ROCIO Administration Olopatadine Hcl 0.2% 0 ea 06/13/24 18:15 06/15/24 09:12 Eye Drops BOTH EYES 07/13/24 18:14 2 drops QDAY ROCIO Administration Dextrose 25 ml 06/12/24 21:23 Dextrose 50%-Water Inj 50 Ml Syringe IV 07/12/24 21:22 Q15MIN PRN BG 50-70 responsive npo pt Dextrose 50 ml 06/12/24 21:23 Dextrose 50%-Water Inj 50 Ml Syringe IV 07/12/24 21:22 Q15MIN PRN BG <50 OR BG <70 & pt unresponsive Fluconazole 400 mg 06/15/24 09:15 06/15/24 10:08 Fluconazole 100 Mg Tablet PO 06/22/24 09:14 400 mg QDAY ROCIO Administration Glucagon 1 mg 06/12/24 21:23 Glucagon Inj 1 Mg Vial IM Q15MIN PRN BG <70, and no IV access Guaifenesin/Dextromethorphan 1 each 06/12/24 21:11 Guaifenesin/Dm Tablet GT 07/12/24 21:10 Q4HR PRN COUGH Heparin Sodium (Porcine) 5,000 unit 06/12/24 21:15 06/15/24 09:17 Heparin Sod Inj 5000 Unit/Ml Vial SC 06/26/24 21:14 5,000 unit BID ROCIO Administration Levetiracetam 750 mg 06/14/24 11:00 06/15/24 09:10 Levetiracetam Liqd 500 Mg/5 Ml Udc GT 07/14/24 10:59 750 mg BID ROCIO Administration Loratadine 10 mg 06/13/24 09:00 06/15/24 09:11 Loratadine 10 Mg Tablet PO 07/13/24 08:59 10 mg QDAY ROCIO Administration Home Medication- 200 mg 06/13/24 09:00 06/15/24 09:13 Please Speak With PO 07/13/24 08:59 Not Given Patient Caregiver To QDAY ROCIO Have Rx Brought To [facility] Ondansetron HCl 4 mg 06/12/24 21:05 Ondansetron Inj 2 Mg/Ml Inj 2 Ml IV 07/12/24 21:04 Q6H PRN NAUSEA OR VOMITING Protocol Pantoprazole Sodium 40 mg 06/13/24 09:00 06/15/24 09:11 Pantoprazole Inj 40 Mg Vial IVP 07/13/24 08:59 40 mg QDAY ROCIO Administration Sennosides 1 tab 06/14/24 07:30 06/15/24 09:11 Senna Tablet GT 07/14/24 07:29 1 tab QDAY ROCIO Administration Protocol Valproic Acid 250 mg 06/12/24 21:30 06/15/24 09:11 Valproic Acid Syrup 250 Mg/5 Ml Udc GT 07/12/24 21:29 250 mg BID ROCIO Administration Plan 33-year-old male with past medical history of traumatic brain injury with contractures, history of seizures, myocarditis with residual neurological injury and probable prolonged QT syndrome presented to the ED with cough and shortness of breath. Patient is admitted for sepsis and acute hypoxic respiratory failure due to community-acquired pneumonia. #Sepsis and acute hypoxic respiratory failure #RSV, viral pneumonia #Cocci positive serology #Lactic acidosis, improving Met 3/4 SIRS criteria Patient presented from senior living with shortness of breath and productive cough with phlegm. Patient is in chronic vegetative state s/p anoxic brain injury. Labs showed hemoglobin and white count within normal limits. Lactic acid was elevated on admission. Chest x-ray showed bilateral perihilar pneumonia with reduced respiratory effort. EKG showed sinus tachycardia with QTc 411 Vitals showed blood pressure 130/85, heart rate 114, respiratory rate 24 and febrile. Saturating 100% on 3 L NC. Patient with 3/4 SIRS criteria with tachycardia tachypnea and fever with possible source pneumonia and elevated lactic acid. Procalcitonin was negative. VBG was unremarkable. Flu and COVID test was negative. In the ED, patient received ceftriaxone and azithromycin x 1 and 2 L bolus of fluids. Lactic acid was 2.2 down trended to 2.0 Patient is positive for RSV and Cocci serology Plan: Stopped IV ceftriaxone 1 g once daily and azithromycin 500 mg once daily, [06/12/2024? 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 Plan: Patient on Keppra 750mg GT bid - switched dosage to accurately reflect home dose Continue home medications Seizure precautions #PEG tube #Hypoosmolar hyponatremia Patient is PEG tube dependent for nutrition; moreover, prone for electrolyte disturbances Patient does have a PEG tube feed in place clean and dry Plan: Resume PEG tube feeding Monitor with morning labs Replete as necessary IV fluid resuscitation when indicated Hospital Management: Lines: PIV Bowel: Senna Diet: PEG tube feedings with Jevity 1.5 GI prophylaxis: Protonix IV daily DVT prophylaxis: Heparin subcut twice daily Disposition: Treating HCAP, possible viral etiology will continue to monitor Code: DNR/I This patient care was discussed with my attending Dr. Valdo Monahan MD PGY-2 Disclaimer: Minor errors in grant coordinator may be present since this note was dictated by speech recognition software. Attending Provider Attestation/Addendum I attest that I was physically present for the evaluation, physical examination, lab and imaging review of the patient with the residents. I discussed the case with the residents and agree with the findings and plans of care as documented above. At bedside today, patient continues to be on minimal supplemental oxygen. Procalcitonin came back negative, antibiotics discontinued. ID following, recommended continuation of Fluconazole awaiting confirmatory result from [facility]. Continues to have coarse breathing on auscultation and Tachypneic/Tachycardic, obtained CTA chest to rule out PE, which came back negative. We will monitor closely. We will plan for discharge once his RR becomes more stable. Ayush Lyle MD
[2024-06-16] VITALS (9 sets, daily range): BP systolic 93–130; BP diastolic 71–97; PULSE 86–113; RESP 18–27; TEMP 36.2–36.6; O2SAT 93–99; BMI 25.2
[2024-06-16] MEDS: ALBUTEROL/IPRATROPIUM (Duoneb) RT SOL 3 ML NEBU INH ×3 (02:50→12:47)
[2024-06-16] MEDS: BACLOFEN 10 MG TABLET GT ×2 (07:39→14:51)
[2024-06-16 08:39] LABS: Basophils % (Auto) 1 % (0-2.5); Eosinophils # (Auto) 0.3 Thou/mm3 (0.0-0.5); Eosinophils % (Auto) 5 % (0-10); Hematocrit 42.9 % (41.0-53.0); Hemoglobin 14.5 g/dL (13.5-16.0); Immature Granulocytes % (Auto) 0 % (0-0); Immature Granulocytes Auto 0.02 Thou/mm3 (0.00-0.00); Lymphocytes # (Auto) 1.9 Thou/mm3 (1.0-4.8); Lymphocytes % (Auto) 37 % (10-50); Mean Corpuscular HGB Conc 33.8 g/dl (31.0-37.0); Mean Corpuscular Hemoglobin 29.1 pg (25.0-35.0); Mean Corpuscular Volume 86 fL (80-100); Monocytes # (Auto) 0.8 Thou/mm3 (0.0-0.8); Monocytes % (Auto) 15 % (0-12); Neutrophils # (Auto) 2.2 Thou/mm3 (1.8-7.7); Neutrophils % (Auto) 43 % (37-80); Nucleated Red Blood Cell % 0 /100 WBC (0); Platelet Count 195 Thou/mm3 (140-440); RDW Standard Deviation 45.2 fL (35.1-43.9); Red Blood Count 4.99 Miln/mm3 (4.50-5.90); White Blood Count 5.1 Thou/mm3 (3.8-10.6)
[2024-06-16 09:14] LABS: Alanine Aminotransferase 51 U/L (10-49); Albumin, Serum 4.6 gm/dL (3.5-5.0); Albumin/Globulin Ratio 1.3 (1.2-2.2); Alkaline Phosphatase 101 U/L (46-116); Anion Gap 8 (7-16); Aspartate Amino Transferase 39 U/L (0-34); BUN/Creatinine Ratio 15 Ratio (12-20); Bilirubin,Total 0.2 mg/dL (0.3-1.2); Blood Urea Nitrogen 6 mg/dL (9-23); Calcium 10.3 mg/dL (8.3-10.6); Calcium (Corrected) 10.3 mg/dL (8.5-10.1); Carbon Dioxide 30.4 mMol/L (20.0-31.0); Chloride 95 mMol/L (98-107); Creatinine (Component) 0.4 mg/dL (0.6-1.3); Estimated Creatinine Clearance 230.4 mL/min (>60); Globulin 3.6 gm/dL (2.3-3.5); Glucose 124 mg/dL (74-106); Osmolality,Calculated 264 (275-295); Sodium 133 mMol/L (136-145); Total Protein 8.2 gm/dL (5.7-8.2); eGFR > 60 See Note
[2024-06-16] MEDS: PANTOPRAZOLE INJ 40 MG VIAL IVP (11:03)
[2024-06-16] MEDS: OLOPATADINE HCL 0.2% BOTH EYES (11:04)
[2024-06-16] MEDS: HEPARIN SOD INJ 5000 UNIT/ML VIAL SC (11:08)
[2024-06-16] MEDS: levETIRAcetam LIQD 500 MG/5 ML UDC 750 MG GT (11:18)
[2024-06-16] MEDS: VALPROIC ACID SYRUP 250 MG/5 ML UDC GT (11:18)
[2024-06-16] MEDS: lorataDINE 10 MG TABLET PO (11:20)
[2024-06-16] MEDS: FLUCONAZOLE 100 MG TABLET 400 MG PO (11:20)
[2024-06-16] MEDS: SENNA TABLET 1 TAB GT (11:20)
[2024-06-16] MEDS: clonazePAM 0.5 MG TABLET 1 MG GT (11:22)
--- NOTE | 2024-06-16 12:45 | ESDS_ITS ---
<Statement entered by Gonsalo Monahan MD - 06/17/24 13:46> I discussed with and supervised the college intern physician involved in the care of this patient. Patient assessment and plan was discussed with entire medicine team, including my attending. I agree with the assessment and plan as documented by college intern doctor. Patient care was discussed with my attending physician Dr. Valdo Monahan, PGY-2 Planned Discharge Date 06/16/24 DS: Providers Provider Date of admission: 06/12/24 21:04 Primary care physician: Dheeraj Portillo MD Admitting Provider: Royal Valle MD Attending Provider on Admission: Royal Valle MD Consults: 06/12/24 21:22 Referral Registered Dietitian Routine Comment: 06/13/24 15:23 [facility] Referral - Safety Routine Comment: Positive screening for safety needs. 06/13/24 15:25 Referral Wound Care Routine Comment: Hx of skin tears/pressure injuries to buttocks. 06/14/24 09:40 Consult to Infectious Diseases Routine Comment: Cocci + and RSV Consulting Provider: Daniel aCntrell Attending Provider on DC: Miguel Nickerson MD Discharging Provider: Miguel Nickerson MD DS: Diagnosis Problem List Completed Was Problem List Reviewed/Reconciled?: Yes Hospital Course Hospital Course Hospital course: 33-year-old male with past medical history of traumatic brain injury with contr actures, anoxic brain injury and persistent vegetative state since 2002, history of seizures, and myocarditis with residual neurologic injury, PEG tube dependence presented to the ED on 06/12 with productive cough and shortness of breath. In the ED, patient was hypertensive, tachycardic, tachypneic and febrile 100.8 ?F. Influenza and COVID tests were negative, EKG showed sinus tachycardia but with no concerning ST changes, chest x-ray showed bilateral perihilar pneumonia. Patient was admitted for further workup and management of acute hypoxic respiratory failure secondary to infectious process. During admission, patient was found to be RSV and coccidiomycosis positive. Patient was initially started on IV antibiotics but those were discontinued upon reassessment; moreover, patient was started on IV Diflucan and symptomatic therapy. Infectious disease was consulted for recommendations regarding cocci serology being positive; moreover, pending confirmatory testing from [facility]. During hospitalization, there was also concern for possible PE as the patient remained tachycardic and tachypneic; moreover, ABG and chest CTA were ordered which were both not significant for signs of PE. Patient will be discharged with the following strict instructions. 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 #History of seizure disorder #PEG tube #Hypoosmolar hyponatremia Miguel Nickerson, PGY-1 Status at Discharge Overall status at discharge: patient is progressing back to baseline Time Spent with Patient Time attestation: Total time spent providing and/or coordinating discharge services: 45 minutes Time spent: Greater than 30 minutes Exam Vital Signs Temp Pulse Resp BP Pulse Ox O2 Del Method O2 Flow Rate 97.3 F 88 18 93/71 98 Nasal Cannula 1 06/16/24 12:00 06/16/24 12:06/16/24 12:06/16/24 12:06/16/24 12:06/16/24 12:06/16/24 12:00 Narrative Exam Physical Exam: GENERAL: Chronic vegetative state with contractures. Saturating well on room air. HEENT: NC, AT. Dry mucous membrane. EOMI, clear conjunctiva, oropharynx clear. HEART: RRR, normal S1/S2, no m/r/g LUNGS: Sporadic coarse breath sounds heard bilaterally, dry coughing, no wheeze/rales/rhonci ABDOMEN: Soft, nontender, nondistended. PEG tube placed; site look clean/dry EXTREMITIES: No peripheral edema, cyanosis or clubbing; there are contractures of the upper extremeties. NEUROLOGICAL: Chronic vegetative state. Limited due to medical condition Discharge Plan Plan Patient Disposition: Xfer Other Disposition Comment: Stable Patient condition on transfer: Stable Care Plan Goals: Please continue taking Fluconazole 400mg by g-tube once a day Continue taking all your home medications as prescribed Follow-up with your PCP within 1-2 weeks after discharge; follow-up on Coccidioidomycosis infection If your symptoms worsen or if you develop new fever/chills or shortness of breath - please come back to the ED immediately Prescriptions/Referrals Prescriptions/Med Rec: New fluconazole 40 mg/mL suspension for reconstitution 400 mg feeding tube QDAY 30 Days Qty: 300 0RF Continued clonazepam 1 mg tablet 1 mg feeding tube BID ascorbic acid (vitamin C) [Vitamin C] 500 mg tablet 500 mg feeding tube DAILY valproic acid (as sodium salt) 250 mg/5 mL solution 250 mg feeding tube BID baclofen 10 mg tablet 10 mg feeding tube Q8HR loratadine 10 mg tablet 10 mg feeding tube DAILY olopatadine 0.2 % drops 1 drp OPHTHALMIC (EYE) DAILY Xcopri 200 mg tablet 200 mg feeding tube DAILY levetiracetam [Keppra] 100 mg/mL solution 750 mg feeding tube BID Qty: 473 0RF Diaper Rash 40 % paste 1 applic topical TID PRN (Reason: diaper rash) Rx Instructions: Q2hr as needed. Referrals: Dheeraj Portillo MD [Primary Care Provider] - Patient/Caregiver Discharge Instructions Education Materials: RSV (Respiratory Syncytial Virus), Understanding Coccidioi domycosis Print Language: Luxembourgish Stand Alone Forms: Annia Award Info., Patient Portal Info Letter Discharge Order Discharge Orders: Discharge (Routine); Ordered 06/16/24 Ordered By: Gonsalo Monahan Quality Discharge Quality Measures VTE prophylaxis Attestestation MD Attestation I attest that I was physically present for the evaluation, physical examination, lab and imaging review of the patient with the residents. I discussed the case with the residents and agree with the findings and plans of care as documented above. At bedside today, patient appears comfortable, saturating well on 1L nasal cannula. Respiratory rate and heart rate has improved. Continues to be on Fluconazole. We will discharge patient back on Fluconazole via GT. Recommended follow up with PCP and final results from [facility] and decide on continuation of Diflucan. Patient may need ID referral if the confirmatory results are positive. Ayush Lyle MD
--- NOTE | 2024-06-16 13:04 | PC.SS ---
[employer] received phone call from [facility] staff Dana Esparza informing [employer] that patient is aligned with [facility] services but is not conserved. Patient is a resident of [facility]. Discharge plan is for the patient to return to [facility]. [facility] assists with medical decision making. [facility] informed [employer] that Eleno Brown can receive updates related to the patient.
--- NOTE | 2024-06-16 15:56 | PC.SS ---
SS spoke to caregiver, Eleno [phone] who at first requested for SS to setup transportation but now they will come coal picker pt at 4:30pm. Eleno is aware pt does not require O2 at home. Bedside nurse, Emory is aware jail will coal picker pt in 30 minutes and he was agreeable. Mom is at bedside and is aware. birth certificate clerk is aware. Eleno states SS does not have to setup transportation.
== END 2024-06-16 16:36 | disposition other institution (70) | DRG 720 ==
LOC: SERX 22:55 → SERHOLD 22:57 → S2NX 06-13 15:05
PROVIDERS: Internal Medicine; Internal Medicine Infectious Disease; Nurse Practitioner Family; Student in an Organized Health Care Education/Training Program; Admitting Provider Internal Medicine; Emergency Provider Emergency Medicine; PCP Family Medicine; Visit Provider Internal Medicine
DX: A41.9 Sepsis, unspecified organism (principal); F79 Unspecified intellectual disabilities; G40.909 Epilepsy, unspecified, not intractable, without status epilepticus; R40.3 Persistent vegetative state; E87.1 Hypo-osmolality and hyponatremia; J96.01 Acute respiratory failure with hypoxia; B38.0 Acute pulmonary coccidioidomycosis; B97.4 Respiratory syncytial virus as the cause of diseases classified elsewhere; J12.9 Viral pneumonia, unspecified; D69.6 Thrombocytopenia, unspecified; I51.4 Myocarditis, unspecified; G93.1 Anoxic brain damage, not elsewhere classified; Z87.820 Personal history of traumatic brain injury; Z74.01 Bed confinement status; Z66 Do not resuscitate; Z93.1 Gastrostomy status; Y95 Nosocomial condition; Z16.29 Resistance to other single specified antibiotic; Z88.0 Allergy status to penicillin; Z79.899 Other long term (current) drug therapy; F17.200 Nicotine dependence, unspecified, uncomplicated; Z11.52 Encounter for screening for COVID-19
CPT/HCPCS: 36415; 36600; 71045; 71275; 80053; 81001; 82550; 82803; 83605; 83615; 83690; 83735; 83880; 84100; 84145; 84484; 85025; 85610; 85730; 86635; 86703; 86803; 87040; 87081; 87086; 87400; 87634; 87811; 93005; 94640; 94667; 96365; 96366; 96367; 96372; 99285; A4649; A9270; J0456; J0696; J1450; J1643; J2470; J3475; J7030; J7050; Q9967

== ENCOUNTER 2024-10-27 19:53 | Emergency (ER) | payer MEDICAID, SELFPAY ==
[2024-10-27 19:54] VITALS: BP 113/68; PULSE 96; RESP 24; TEMP 37; O2SAT 95
[2024-10-27 19:57] VITALS: BMI 21.2
[2024-10-27 20:02] VITALS: PULSE 96; RESP 12; O2SAT 96; BMI 22.1
[2024-10-27 20:38] VITALS: BP 110/83; PULSE 85; RESP 23; TEMP 37.3; O2SAT 99
--- NOTE | 2024-10-27 21:53 | XR_ITS ---
Examination: AP chest single view Findings one AP portable semiupright chest single view Date and time: October 27, 2024 2158 hours INDICATIONS: Fever vomiting shortness of breath chest pain beginning 2 days ago. FINDINGS: Normal heart size Lungs are clear. The osseous structures are intact IMPRESSION: No active disease
[2024-10-27 22:08] VITALS: BP 100/77; PULSE 79; RESP 24; TEMP 37.1; O2SAT 99
--- NOTE | 2024-10-27 22:20 | PD.EDFEVER ---
ED Fever RME/HPI General Chief Complaint: Fever Stated Complaint: SOB Time Seen by Provider: 10/27/24 22:20 Arrival date/time: 10/27/24 19:53 RME / HPI RME / HPI Narrative: 34 y/o M with PMhx of intellectual disability, incontinence, seizure disorder, hypoxic brain injury, myocarditis, with residual neurological impairment, s/p PEG tube, brought here due to low grade fevers and hypotension. Found to be RSV and cocci positive on documentation by facility. Patient with GCS of 10 at baseline Sepsis work up, IVFs LR, CBC, CMP, LA, CT angio chest ordered. EKG shows sinus rhythm, CXR no signs of pneumonia MD complaint: fever Related Data Home Medications ?Medication ?Instructions ?Recorded ?Confirmed ascorbic acid (vitamin C) 500 mg 500 mg feeding tube DAILY 12/24/23 06/13/24 tablet (Vitamin C) baclofen 10 mg tablet 10 mg feeding tube Q8HR 12/24/23 06/13/24 cenobamate 200 mg tablet (Xcopri) 200 mg feeding tube DAILY 12/24/23 12/24/23 clonazepam 1 mg tablet 1 mg feeding tube BID 12/24/23 12/24/23 loratadine 10 mg tablet 10 mg feeding tube DAILY 12/24/23 06/13/24 olopatadine 0.2 % eye drops 1 drp ophthalmic (eye) DAILY 12/24/23 06/13/24 valproic acid (as sodium salt) 250 250 mg feeding tube BID 12/24/23 06/13/24 mg/5 mL oral solution zinc oxide-cod liver oil 40 % 1 applic topical TID PRN diaper 06/13/24 06/13/24 topical paste (Diaper Rash) rash Previous Rx's ?Medication ?Instructions ?Recorded levetiracetam 100 mg/mL oral 750 mg (7.5 mL) feeding tube BID 12/27/23 solution (Keppra) #473 mL Allergies Allergy/AdvReac Type Severity Reaction Status Date / Time Penicillins Allergy Verified 10/27/24 20:01 Review of Systems Review of Systems ROS Unobtainable: unobtainable due to medical condition Physical Exam Narrative Physical exam: Physical Exam GENERAL: NAD, intellectually disabled, GCS 10 HEENT: Moist mucosa. Eyes open, symmetrical, & clear CARDIO: Heart RRR, no obvious murmurs PULM: + coughing/dyspnea CTA B/L, no R/W/R GI: Midline scar well-healed. Abdomen soft, nondistended, no pain on palpation.Baclofen pump in place noted on the right lumbar area. BS appreciated, peg tube noted SKIN/MSK/EXT: B/L upper extremity conrtracted, no pain on palpation. Pedal pulses present B/L Course Course Course Narrative: 2215: CBC unremarkable, CMP shows some mild hyponatremia, Lactic acid noted to be elevated at 2.5, Duonebs ordered, troponins negative, procal negative 0441:Sepsis alert initiated.. Orders made at this time are congruent with ED Adult Sepsis Order List. 0511: Sepsis reassessment performed, consisting of lab review, vitals, physical exam including auscultation of heart, lungs, and visual evaluation of capillary refills, mucosal membranes and extremities. Patient has been given 2.5L normal LR. Pertinent lab results include; WBC- 7.o Lactic- 2.5--> Procalcitonin- ng Pt has the following organ dysfunction criteria; Lactate > 2.0 0445: Zosyn IV has been ordered and will be administered pending (RADS).. Quality Measures none Orders Category Date Time Status Bedside COVID-19 Antigen Test NOW Care 10/28/24 11:05 Completed Bedside Influenza A&B Antigen Test NOW Care 10/28/24 11:[address] Screening NOW Care 10/27/24 23:48 Completed Pricing Lead STAT Care 10/27/24 23:47 Completed Continuous Pulse Oximetry STAT Care 10/27/24 23:47 Completed EKG (ED ONLY) *Do not use* NOW Care 10/27/24 23:47 Completed In and Out Catheter X1PRN Care 10/27/24 23:47 Completed Insert IV NOW Care 10/27/24 23:47 Completed NPO STAT Care 10/27/24 23:47 Completed Strict Intake and Output Routine Care 10/27/24 23:47 Ordered Urinary Catheter QS Care 10/27/24 23:[address] chest w con SEPSIS PROTOCOL Stat Exams 10/27/24 23:47 Completed EKG (ED Only) Stat Exams 10/27/24 23:47 Ordered XR chest 1V portable Stat Exams 10/27/24 21:53 Completed ABG [Arterial Blood Gas] Stat Lab 10/28/24 10:09 Completed B-Type Natriuretic Peptide Stat Lab 10/27/24 22:15 Completed Blood Culture (Lab) Stat Lab 10/27/24 23:47 Results CBC [CBC] Stat Lab 10/27/24 22:15 Completed CMP [Comprehensive Metabolic Panel] Stat Lab 10/27/24 22:15 Completed Lactate (Lactic Acid) Stat Lab 10/27/24 22:15 Completed Lactic Acid, 3 HR Stat Lab 10/28/24 03:03 Completed Magnesium Stat Lab 10/27/24 22:15 Completed Partial Thromboplastin Time Stat Lab 10/27/24 22:15 Completed Phosphorous Stat Lab 10/27/24 22:15 Completed Procalcitonin Stat Lab 10/27/24 22:15 Completed Prothrombin Time with INR Stat Lab 10/27/24 22:15 Completed Troponin I Stat Lab 10/27/24 22:15 Completed Urinalysis Stat Lab 10/28/24 02:25 Completed Urine Culture Stat Lab 10/28/24 02:25 Received Albuterol/Ipratr Rt Aleyda [Duoneb Rt Aleyda] Med 10/27/24 23:59 Discontinued 3 ml INH X1 ONE Cefepime Inj [Maxipime Inj] 1 gm Med 10/28/24 04:49 Discontinued SODIUM CHLORIDE 0.9% (Popper) [Ns 0.9% (P)] 50 ml IV X1 Ringers Lactated 1000 ml [Lactated Ringers] 2,121 ml Med 10/27/24 23:47 Discontinued IV 2,121 mls/hr Vancomycin Pharmacy to Dose Med 10/28/24 04:49 Discontinued 1 each IV PRN PRN Vancomycin/Ns 1 gm Ivpb 200 ml Med 10/28/24 14:00 Discontinued IV Q8H Vancomycin/Ns 1 gm Ivpb 200 ml Med 10/28/24 05:00 Discontinued IV X1 Oxygen Delivery NOW RT 10/27/24 23:47 Completed Vital Signs Vital signs: Vital Signs Temperature 98.6 F 10/27/24 19:54 Pulse Rate 96 10/27/24 19:54 Respiratory Rate 24 H 10/27/24 19:54 Blood Pressure 113/68 10/27/24 19:54 Pulse Oximetry (%) 95 10/27/24 19:54 Oxygen Delivery Method Room Air 10/27/24 19:54 Fever MDM Narrative MDM Narrative:: 34 y/o M with PMhx of intellectual disability, incontinence, seizure disorder, hypoxic brain injury, myocarditis, with residual neurological impairment, s/p PEG tube, brought here due to low grade fevers and hypotension. Found to be RSV and cocci positive on documentation by facility. Patient with GCS of 10 at baseline Sepsis work up, IVFs LR, CBC, CMP, LA, CT angio chest ordered still pending and urine analysis EKG shows sinus rhythm, CXR no signs of pneumonia Patient data External records reviewed:: [facility] previous records and Skilled Nursing records Clinical information provided by:: patient Social determinants that could affect healthcare access:: mental health Patient has the following chronic illnesses:: peg tube, trach How is presenting disease/condition affected by chronic disease/condition?: no chronic disease Evaluation data The following diagnostics were reviewed and interpreted by me:: lab results Lab and/or radiology exams considered but not ordered:: . Interpretation Summary: . Medications / Prescriptions Medications or Prescriptions considered but not ordered:: . Medication administrations:: Medication Administration History Discontinued Medications Albuterol/Ipratropium (Albuterol/Ipratropium (Duoneb) Rt Aleyda 3 Ml Nebu) 3 ml INH X1 ONE Stop: 10/28/24 00:00 Last Admin: 10/28/24 00:13 Dose: 3 ml Documented By: SUZANNE Lactated Ringer's (Lactated Ringers) 2,121 mls @ 2,121 mls/hr 30 ml/kg infuse over 60 min (2121 ml) IV .Q1H ONE Stop: 10/28/24 00:46 Last Infusion: 10/28/24 03:00 Dose: Infused Documented By: Admin: 10/28/24 00:53 Dose: 2,121 mls/hr Documented By: LUDWIG Cefepime HCl 1 gm/ Sodium (Chloride) 50 mls @ 100 mls/hr IV X1 ONE Stop: 10/28/24 05:18 Last Infusion: 10/28/24 06:20 Dose: Infused Documented By: Admin: 10/28/24 05:46 Dose: 100 mls/hr Documented By: LUDWIG Vancomycin/Sodium Chloride (Vancomycin/Ns 1 Gm Ivpb) 200 mls @ 120 mls/hr IV X1 ONE Stop: 10/28/24 06:39 Last Infusion: 10/28/24 08:24 Dose: Infused Documented By: Admin: 10/28/24 05:47 Dose: 120 mls/hr Documented By: LUDWIG Vancomycin/Sodium Chloride (Vancomycin/Ns 1 Gm Ivpb) 200 mls @ 120 mls/hr IV Q8H [facility]; Protocol Stop: 11/04/24 13:59 Pharmacy Consult (Vancomycin Pharmacy To Dose 1 Each Each) 1 each IV PRN PRN PRN Reason: RX Stop: 11/27/24 04:48 see above Consultations Consultation(s) initiated? (list below): No Diagnosis Fever Differential Diagnosis: sepsis Most likely diagnosis given after review of the tests above:: sepsis unknown source at this time. Admission Indicated Admission indicated?: indicated Admission Request Was there a request for admission?: Yes Admission Attestation Admission request attestation: Discussed case with [] from Hospitalist service regarding admission. Discussed patients ED course, exam findings, labs, and radiology results. The Hospitalist [agrees,declines] to accept the patient for admission. Disposition Plan Disposition Plan: Admit Discharge Plan Plan Patient Disposition: Xfer [facility] Acute Patient condition on transfer: Stable Prescriptions/Referrals Prescriptions/Med Rec: No Action clonazepam 1 mg tablet 1 mg feeding tube BID ascorbic acid (vitamin C) [Vitamin C] 500 mg tablet 500 mg feeding tube DAILY valproic acid (as sodium salt) 250 mg/5 mL solution 250 mg feeding tube BID baclofen 10 mg tablet 10 mg feeding tube Q8HR loratadine 10 mg tablet 10 mg feeding tube DAILY olopatadine 0.2 % drops 1 drp OPHTHALMIC (EYE) DAILY Xcopri 200 mg tablet 200 mg feeding tube DAILY levetiracetam [Keppra] 100 mg/mL solution 750 mg feeding tube BID Qty: 473 0RF Diaper Rash 40 % paste 1 applic topical TID PRN (Reason: diaper rash) Rx Instructions: Q2hr as needed. Referrals: Dheeraj Portillo MD [Primary Care Provider] - In 1 week Problem List Clinical Impression: Low blood pressure reading Patient/Caregiver Discharge Instructions Education Materials: ED Low Blood Pressure, All Causes Print Language: Turkish Stand Alone Forms: Annia Award Info., Patient Portal Info Letter MD Attestation Attestation I, saw the patient with the resident Dr. Santamaria. Hours present for the pertinent history and physical exam, reviewed the history and physical exam and past record. We discussed the management of this patient, I reviewed the chart and agree.
[2024-10-27 22:42] LABS: Basophils # (Auto) 0.1 Thou/mm3 (0.0-0.2); Basophils % (Auto) 1 % (0-2.5); Eosinophils # (Auto) 0.3 Thou/mm3 (0.0-0.5); Eosinophils % (Auto) 5 % (0-10); Hematocrit 41.1 % (41.0-53.0); Hemoglobin 14.3 g/dL (13.5-16.0); Immature Granulocytes Auto 0.04 Thou/mm3 (0.00-0.00); Lymphocytes # (Auto) 2.6 Thou/mm3 (1.0-4.8); Lymphocytes % (Auto) 37 % (10-50); Mean Corpuscular HGB Conc 34.8 g/dl (31.0-37.0); Mean Corpuscular Hemoglobin 29.2 pg (25.0-35.0); Mean Corpuscular Volume 84 fL (80-100); Monocytes # (Auto) 0.8 Thou/mm3 (0.0-0.8); Monocytes % (Auto) 12 % (0-12); Neutrophils # (Auto) 3.1 Thou/mm3 (1.8-7.7); Neutrophils % (Auto) 45 % (37-80); Nucleated Red Blood Cell # 0.00 Thou/mm3 (0.00-0.00); Nucleated Red Blood Cell % 0 /100 WBC (0); Platelet Count 224 Thou/mm3 (140-440); RDW Standard Deviation 43.9 fL (35.1-43.9); Red Blood Count 4.89 Miln/mm3 (4.50-5.90); White Blood Count 7.0 Thou/mm3 (3.8-10.6)
[2024-10-27 23:04] LABS: Alanine Aminotransferase 42 U/L (10-49); Albumin, Serum 4.5 gm/dL (3.5-5.0); Albumin/Globulin Ratio 1.4 (1.2-2.2); Alkaline Phosphatase 106 U/L (46-116); Anion Gap 9 (7-16); Aspartate Amino Transferase 32 U/L (0-34); BUN/Creatinine Ratio 15 Ratio (12-20); Bilirubin,Total 0.2 mg/dL (0.3-1.2); Blood Urea Nitrogen 6 mg/dL (9-23); Calcium 10.0 mg/dL (8.3-10.6); Calcium (Corrected) 10.0 mg/dL (8.5-10.1); Carbon Dioxide 27.7 mMol/L (20.0-31.0); Chloride 90 mMol/L (98-107); Creatinine (Component) 0.4 mg/dL (0.6-1.3); Estimated Creatinine Clearance 245.7 mL/min (>60); Globulin 3.2 gm/dL (2.3-3.5); Glucose 79 mg/dL (74-106); Osmolality,Calculated 251 (275-295); Potassium 4.0 mMol/L (3.4-5.1); Sodium 127 mMol/L (136-145); Total Protein 7.7 gm/dL (5.7-8.2); eGFR > 60 See Note
--- NOTE | 2024-10-27 23:47 | XR_ITS ---
Examination: CT chest with intravenous contrast 2-D sagittal and coronal reconstructions Exam date and time: October 28, 2024 0518 hours INDICATIONS: Sepsis alert today, shortness of breath CTDI:vol (mGy) 19.8. DLP: (mGycm) 662. Technique: Multiple axial sections of the thorax have been obtained. Sections have been obtained, 3 mm slice thickness. Mediastinal and lung density settings have been obtained. Intravenous contrast administered, 60 cc Isovue 370.. 2-D sagittal, coronal images obtained. Low dose protocols were performed. One or more of the following dose reduction techniques were used; automated exposure control, adjustment of the mA and/or KV according to patient size, use of iterative reconstruction technique. Findings: No thoracic aortic aneurysmal dilatation or thoracic aortic dissection Pulmonary artery segments are nonenlarged, no pulmonary artery filling defects No paratracheal tracheobronchial or bronchopulmonary adenopathy Mild vascular congestion Subtle diffuse opacity in the lungs restrictive airways disease pattern No kimberly pulmonary edema, no lobar pneumonia No visualized liver or splenic lesion No gallstones No pancreatic or adrenal mass Intact osseous structures IMPRESSION: No thoracic aortic aneurysmal dilatation or dissection. Negative for pulmonary artery emboli Possible restrictive airways disease pattern. No kimberly pulmonary edema, no lobar pneumonia
[2024-10-27 23:59] LABS: Lactate (Lactic Acid) 2.5 mMol/L (0.4-2.0)
[2024-10-28 00:06] LABS: INR 1.0 (0.9-1.3); Partial Thromboplastin Time 34.3 Seconds (22.0-36.0); Prothrombin Time 10.7 Seconds (9.0-12.2)
[2024-10-28] MEDS: ALBUTEROL/IPRATROPIUM (Duoneb) RT SOL 3 ML NEBU INH (00:13)
[2024-10-28 00:19] VITALS: PULSE 77; PULSE 84; RESP 24; RESP 25; RESP 99; O2SAT 100
[2024-10-28 00:29] LABS: Magnesium 1.9 mg/dL (1.6-2.6); Phosphorous 3.8 mg/dL (2.4-5.1); Procalcitonin < 0.04 ng/ml (0.0-0.49); Troponin I < 0.020 ng/mL (0.0-0.045)
[2024-10-28 00:49] LABS: B-Type Natriuretic Peptide < 20 pg/mL (0-100)
[2024-10-28] MEDS: RINGERS LACTATED 2121 ML IV (00:53)
[2024-10-28 02:55] LABS: Reflex Lactate? Y
[2024-10-28 03:09] LABS: Collection Type, Urine Clean Catch
--- NOTE | 2024-10-28 03:17 | PC.NURSE ---
WE HAD DOWN TIME FROM [id number].
[2024-10-28 03:34] LABS: Amorphous Crystals,Urine Present (Absent); Bacteria,Urine Rare; Bilirubin,Urine Negative (Negative); Blood,Urine Negative (Negative); Clarity,Urine Clear (Clear/Hazy); Color,Urine Lt-Yellow (Lt Yel-Yel); Glucose, Urine Negative (Negative); Ketones,Urine Negative (Negative); Leukocyte Esterase,Urine Negative (Negative); Nitrite,Urine Negative (Negative); PH,Urine 7.0 (5.0-7.0); Protein,Urine Negative (Neg - Trace); RBC,Urine 4 /hpf (0-3); Specific Gravity,Urine 1.013 (1.001-1.035); Squamous Epithelial Cell,Urine < 1 /hpf (0-5); Urobilinogen,Urine 2.0 mg/dL (0.0-1.0); WBC,Urine 1 /hpf (0-5)
[2024-10-28 03:49] LABS: Lactic Acid, 3 HR 3.7 mMol/L (0.4-2.0)
[2024-10-28 03:59] VITALS: BP 120/88; PULSE 76; RESP 23; TEMP 37.1; O2SAT 100
[2024-10-28] MEDS: CEFEPIME INJ 1 GM in SODIUM CHLORIDE 0.9% (Popper) 50 ML IV (05:46)
[2024-10-28] MEDS: VANCOMYCIN/NS 1 GM IVPB 200 ML IV (05:47)
[2024-10-28 06:09] VITALS: BP 115/82; PULSE 80; RESP 20; TEMP 36.9; O2SAT 100
[2024-10-28 06:11] VITALS: PULSE 77
--- NOTE | 2024-10-28 06:14 | PC.NURSE ---
pt sleeping off and on through the night. NAD noted.
--- NOTE | 2024-10-28 06:45 | EDNOTE_ITS ---
Emergency Room Addendum Addendum Narrative: 0600: Care assumed from Dr. Santamaria PGY2 and Dr. Arroyo, the previous shift emergency physician. Past medical, surgical, social and family history reviewed. Vitals and home medications reviewed. I will assume the care of the patient at this time, pending CT chest w con report and final disposition. Please refer to the emergency department record for history and examination from initial visit.?The following addendum documentation note is intended to reflect any pending information, findings, or radiology results not included in the patient?s initial chart. 0833: Patient resting comfortably, in no acute distress. HR 73 on telemetry. During ED course, patient has received 2L of Lactated Ringers, Cefepime, and Vancomycin. An ABG ordered and resulted within normal limits. Will discharged back to intermediate. RADIOLOGY Ordering Physician: Date of Service: Procedure(s): Accession Number(s): cc: ~ CT scan of the chest with intravenous contrast (axial sections with sagittal and coronal reformats) October 28, 2024 0515 hours Clinical History: shortness of breath Findings: There is no filling defect within the pulmonary artery divisions to suggest pulmonary thromboembolism. The mediastinum demonstrates no evidence of mass or lymphadenopathy. The thoracic aorta is unremarkable. There is no pericardial effusion. There is mild heterogeneous attenuation of the lower lungs, suggestive of small airways disease. No evidence of pleural effusion or pneumothorax. The osseous structures are unremarkable. The visualized upper abdominal viscera are unremarkable Impression: No CT evidence of pulmonary thromboembolism. Mild heterogeneous attenuation of the lower lungs, suggestive of small airways disease. Report Electronically Signed By: Gen Hartley 10/28/2024 6:49:28 AM [EST]
--- NOTE | 2024-10-28 06:50 | PRELIM_ITS ---
CT scan of the chest with intravenous contrast (axial sections with sagittal and coronal reformats) October 28, 2024 0515 hours Clinical History: shortness of breath Findings: There is no filling defect within the pulmonary artery divisions to suggest pulmonary thromboembolism. The mediastinum demonstrates no evidence of mass or lymphadenopathy. The thoracic aorta is unremarkable. There is no pericardial effusion. There is mild heterogeneous attenuation of the lower lungs, suggestive of small airways disease. No evidence of pleural effusion or pneumothorax. The osseous structures are unremarkable. The visualized upper abdominal viscera are unremarkable Impression: No CT evidence of pulmonary thromboembolism. Mild heterogeneous attenuation of the lower lungs, suggestive of small airways disease. Report Electronically Signed By: Gen Hartley 10/28/2024 6:49:28 AM [EST]
[2024-10-28 08:20] VITALS: BP 129/77; PULSE 46; RESP 20; TEMP 36.5; O2SAT 97
[2024-10-28 10:15] LABS: Base Excess 4 (-3-3); HCO3 29 mEq/L (20-26); Inspired Oxygen, FIO2 21 %; O2 Saturation 97 % (91-98); PCO2 47 mmHg (32.0-48.0); PO2 83 mmHg (83-108); pH, Arterial 7.40 (7.35-7.45)
[2024-10-28 10:17] LABS: Allen Test Not Performed; Puncture Site Right Radial
[2024-10-28 10:36] VITALS: BP 134/98; PULSE 87; RESP 19; TEMP 36.9; O2SAT 95
== END 2024-10-28 12:01 ==
PROVIDERS: Emergency Medicine; Student in an Organized Health Care Education/Training Program; Emergency Provider Emergency Medicine; PCP Family Medicine
DX: R03.1 Nonspecific low blood-pressure reading (principal); R06.02 Shortness of breath; R50.9 Fever, unspecified; Z93.1 Gastrostomy status
CPT/HCPCS: 51702; 36415; 36600; 71045; 71260; 80053; 81001; 82803; 83605; 83735; 83880; 84100; 84145; 84484; 85025; 85610; 85730; 87040; 87077; 87086; 87186; 87400; 87811; 93005; 94640; 96361; 96365; 96366; 96368; 99285; A4314; A4649; A9270; J0692; J3370; J7050; J7120; Q9967

== ENCOUNTER 2025-01-11 19:23 | Inpatient (IN) | payer MEDICAID, SELFPAY ==
[2025-01-11 19:26] VITALS: BP 111/76; PULSE 105; RESP 19; TEMP 36.9; O2SAT 95; BMI 23.0
[2025-01-11 19:28] VITALS: PULSE 105; RESP 17
[2025-01-11 19:52] VITALS: BP 116/87; PULSE 101; RESP 20; TEMP 37.3; O2SAT 95
[2025-01-11 20:00] VITALS: PULSE 101
--- NOTE | 2025-01-11 20:00 | EKG_ITS ---
[facility] Test Date: 2025-01-11 Pat Name: OBED MOE Department: Room: - Gender: Male [place]: : 1990 Requested By: Rufino June Order Number: [id number] Reading MD: Rufino June Measurements Intervals [place] Rate: 100 P: 46 RI: 152 QRS: 33 QRSD: 102 T: 42 QT: 331 QTc: 428 Interpretive Statements SINUS TACHYCARDIA NONSPECIFIC ST ELEVATION [0.05+ mV ST ELEVATION] ABNORMAL RHYTHM ECG Compared to ECG 10/28/2024 00:01:30 ST (T wave) deviation now present Sinus rhythm no longer present /store/S0/[id number]/[id number].pdf
--- NOTE | 2025-01-11 20:01 | XR_ITS ---
Examination: AP chest single view Technique: Portable AP sitting chest single view Date and time: January 11, 2025, 2012 hrs., Comparison October 27, 2024 Indications: Sepsis alert Findings: No significant cardiac enlargement taking into account the portable technique Mild vascular congestion. No lobar pneumonia. Mild osteopenia Impression: No lobar pneumonia
--- NOTE | 2025-01-11 20:05 | PD.EDADULT ---
ED General RME/HPI General Chief complaint: Fever Stated complaint: FEVER Time Seen by Provider: 01/11/25 19:57 Arrival date/time: 01/11/25 19:23 CC: Oral fever HPI patient presents to the ER via EMS who report care provider stating the patient has had oral fever and they are concerned because he was here recently with a pneumonia. Patient has a history of anoxic brain injury seizure disorder myocarditis with an admission in April for pneumonia. Patient is nonverbal retracted deconditioned. Currently he is tachycardic tachycardic and tachypneic. Related Data Home Medications ?Medication ?Instructions ?Recorded ?Confirmed ascorbic acid (vitamin C) 500 mg 500 mg feeding tube DAILY 12/24/23 01/12/25 tablet (Vitamin C) baclofen 10 mg tablet 10 mg feeding tube Q8HR 12/24/23 01/12/25 cenobamate 200 mg tablet (Xcopri) 200 mg feeding tube DAILY 12/24/23 01/12/25 clonazepam 1 mg tablet 1 mg feeding tube BID 12/24/23 01/12/25 loratadine 10 mg tablet 10 mg feeding tube DAILY 12/24/23 01/12/25 olopatadine 0.2 % eye drops 1 drp ophthalmic (eye) DAILY 12/24/23 01/12/25 valproic acid (as sodium salt) 250 250 mg feeding tube BID 12/24/23 01/12/25 mg/5 mL oral solution zinc oxide-cod liver oil 40 % 1 applic topical TID PRN diaper 06/13/24 01/12/25 topical paste (Diaper Rash) rash Previous Rx's ?Medication ?Instructions ?Recorded levetiracetam 100 mg/mL oral 750 mg (7.5 mL) feeding tube BID 12/27/23 solution (Keppra) #473 mL Allergies Allergy/AdvReac Type Severity Reaction Status Date / Time Penicillins Allergy Verified 10/27/24 20:01 Review of Systems Review of Systems ROS Unobtainable: unobtainable due to mental status Past Medical History Past Medical History NEUROLOGIC: Positive Neurological Disorders, Seizures and Traumatic Brain Injury CARDIAC: Negative Cardiac Disorders or Congestive Heart Failure RESPIRATORY: Positive Pneumonia; Negative Chronic Obstructive Pulmonary Disease (COPD) or Asthma GENITOURINARY: Negative Renal Disease ENDOCRINE: Negative Diabetes Mellitus Type 1 or Diabetes Mellitus Type 2 HEMATOLOGIC: Negative Sickle Cell Disease OTHER HISTORY: Positive Hospitalization Social History SMOKING STATUS: Unknown if ever smoked ED Exam Narrative Physical exam: [General: Appears not in any acute distress Head normocephalic HEENT: Eyes pupils are reactive. Not tracking. Mouth dry. Nose no rhinorrhea. Crusting on the lips. Neck is supple no edema Chest equal chest rise Respiratory: Clear to auscultation no wheezes crackles or rubs tachypneic CV: Rate rhythm is regular, tachycardic no murmurs rubs or clicks Abdomen is soft no masses positive bowel sounds all 4 quadrants. PEG tube and dressing site prominent in the left lower quadrant of the abdomen. No surrounding erythema or edema Back: No CVA tenderness no spinous process tenderness from cervical spine thoracic and lumbar spine Skin: Intact no petechiae rash induration ulceration or crepitus Extremities: Contracted deconditioned mildly edematous flaccid Neuro: Awake (baseline) Course Quality Measures none Orders Category Date Time Status Patient Condition Routine Admission 01/12/25 03:43 Ordered Bedside COVID-19 Antigen Test NOW Care 01/11/25 20:46 Active Bedside Influenza A&B Antigen Test NOW Care 01/11/25 20:47 Completed Twisthand STAT Care 01/11/25 20:00 Active Continuous Pulse Oximetry STAT Care 01/11/25 20:00 Completed EKG (ED ONLY) *Do not use* NOW Care 01/11/25 20:00 Completed In and Out Catheter X1PRN Care 01/11/25 20:00 Completed Indwelling [Urinary Catheter] QS Care 01/12/25 01:16 Active Insert IV NOW Care 01/11/25 20:00 Active NPO STAT Care 01/11/25 20:00 Active Notify provider NEEDED Care 01/12/25 03:43 Active Soap Suds [Enema Administration] NOW Care 01/12/25 01:32 Active Strict Intake and Output Routine Care 01/11/25 20:[address] abdomen pelvis wo con Stat Exams 01/11/25 21:34 Completed EKG (ED Only) Stat Exams 01/11/25 20:00 Draft XR chest 1V SEPSIS PROTOCOL Stat Exams 01/11/25 20:01 Completed B-Type Natriuretic Peptide Stat Lab 01/11/25 20:41 Completed Blood Culture (Lab) Stat Lab 01/11/25 20:10 Received CBC Stat Lab 01/11/25 20:41 Completed Comprehensive Metabolic Panel Stat Lab 01/11/25 20:10 Completed LDH (Lactate Dehydrogenase) Stat Lab 01/11/25 20:10 Completed Lactate (Lactic Acid) Stat Lab 01/11/25 20:10 Completed Lactic Acid [Lactate (Lactic Acid)] Stat Lab 01/12/25 03:10 Completed Lactic Acid, 3 HR Stat Lab 01/11/25 23:18 Completed Magnesium Stat Lab 01/11/25 20:10 Completed Partial Thromboplastin Time Stat Lab 01/11/25 20:10 Completed Phosphorous Stat Lab 01/11/25 20:10 Completed Procalcitonin Stat Lab 01/11/25 20:10 Completed Prothrombin Time with INR Stat Lab 01/11/25 20:10 Completed Troponin I Stat Lab 01/11/25 20:10 Completed Urinalysis, C/S if Indicated Stat Lab 01/11/25 20:15 Completed Ringers Lactated 1000 ml [Lactated Ringers] 1,000 ml Med 01/11/25 20:03 Discontinued IV 999 mls/hr Ringers Lactated 1000 ml [Lactated Ringers] 1,000 ml Med 01/11/25 21:33 Discontinued IV 999 mls/hr Sodium Chloride 0.9% 1000 ml [Ns] 1,000 ml Med 01/12/25 01:32 Discontinued IV 999 mls/hr cefTRIAXone/D5w 1gm IV premix [Rocephin/D5w 1gm IV Med 01/11/25 20:04 Discontinued premix] 1 gm in 50 ml IV X1 cefTRIAXone/D5w 1gm IV premix [Rocephin/D5w 1gm IV Med 01/12/25 00:50 Discontinued premix] 1 gm in 50 ml IV X1 levETIRAcetam INJ [Keppra Inj] Med 01/11/25 20:08 Discontinued 1,000 mg IVP X1 ONE metroNIDAZOLE/NS 500 MG IVPB [Flagyl 500 mg IV] Med 01/12/25 00:50 Discontinued 500 mg in 100 ml IV X1 Code Status Routine Oth 01/12/25 03:42 Ordered Oxygen Delivery NOW RT 01/11/25 20:00 Active Vital Signs Vital signs: Vital Signs Temperature 98.5 F 01/11/25 19:26 Pulse Rate 105 H 01/11/25 19:26 Respiratory Rate 19 01/11/25 19:26 Blood Pressure 111/76 01/11/25 19:26 Pulse Oximetry (%) 95 01/11/25 19:26 Oxygen Delivery Method Room Air 01/11/25 19:26 Discharge Plan Plan Patient Disposition: Admit Acute Care w/in Hospital Problem List Clinical Impression: Sepsis, Acute proctitis PA/SURGICAL SUPPLIES STERILIZER Supervising Physician BECCA/SURGICAL SUPPLIES STERILIZER Supervising Physician: Rufino Muñoz ENP [facility] Clinical Information Provided by EMS Medical [facility] Meds/Rx Considered, not Ordered None Labs/Rad/Tests considered, not Ordered None Chronic Illness/Social Conditions Add or document further as needed: Anoxic brain injury deconditioning seizure disorder Lab Interpretation Labs: interpreted by me Lab(s) interpretation(s): CBC shows no acute leukocytosis anemia thrombocytopenia CMP shows sodium 131 chloride 94 BUN less than 5 creatinine of 0.4 glucose of 127 lactic at 2.9 no transaminitis or T. bili elevation Troponin is unremarkable procalcitonin is unremarkable. Urine is negative for urinary tract infection. Imaging Imaging interpretation: interpreted by me Provider imaging interpretation(s): Chest x-ray is negative as interpreted by me read by radiology Medication Administration(s) Medication Administration History Acetaminophen (Acetaminophen 325 Mg Tablet) 650 mg PO Q6H PRN PRN Reason: Fever >101.5 Stop: 02/11/25 03:49 Hydrocodone Bitart/Acetaminophen (Hydrocodone/Apap 10/325 Tab) 1 tab GT Q4HR PRN PRN Reason: PAIN SCALE 7-10 (Severe Stop: 01/17/25 03:49 Baclofen (Baclofen 10 Mg Tablet) 10 mg GT Q8HR ROCIO Stop: 02/11/25 05:59 Last Admin: 01/12/25 06:10 Dose: 10 mg Documented By: DUANE Clonazepam (Clonazepam 0.5 Mg Tablet) 1 mg GT BID ROCIO Stop: 01/17/25 08:59 Last Admin: 01/12/25 08:06 Dose: 1 mg Documented By: LUDY Heparin Sodium (Porcine) (Heparin Sod Inj 5000 Unit/Ml Vial) 5,000 unit SC Q8HR ROCIO Stop: 01/26/25 05:59 Last Admin: 01/12/25 06:10 Dose: 5,000 unit Documented By: DUANE Co-signed By: ALEX Cefepime HCl 2 gm/ Sodium (Chloride) 50 mls @ 100 mls/hr IV Q12HR ROCIO Stop: 01/19/25 20:59 Dextrose/Sodium Chloride (D5-Ns) 500 mls @ 100 mls/hr IV .Q5H ROCIO Stop: 02/11/25 04:44 Last Admin: 01/12/25 05:05 Dose: 100 mls/hr Documented By: DT Lactated Ringer's (Lactated Ringers) 1,000 mls @ 85 mls/hr IV .[id number] ROCIO Stop: 01/13/25 07:35 Last Admin: 01/12/25 10:44 Dose: 85 mls/hr Documented By: LUDY Lactulose (Lactulose Syrup 20 Gm/30 Ml Udc) 10 gm GT QDAY ROCIO; Protocol Stop: 02/11/25 08:59 Last Admin: 01/12/25 08:05 Dose: 10 gm Documented By: LUDY Lansoprazole (Lansoprazole 30 Mg Tab.Rap.Dr) 30 mg GT QDAY [facility]; Protocol Stop: 02/12/25 08:59 Levetiracetam (Levetiracetam Liqd 500 Mg/5 Ml Udc) 100 mg GT BID [facility] Stop: 02/11/25 08:59 Last Admin: 01/12/25 08:06 Dose: 100 mg Documented By: LUDY Loratadine (Loratadine 10 Mg Tablet) 10 mg GT DAILY ROCIO Stop: 02/11/25 08:59 Last Admin: 01/12/25 08:07 Dose: 10 mg Documented By: LUDY Non-Formulary Medication (Cenobamate [Xcopri]) 200 mg FEED TUBE DAILY ROCIO Stop: 02/11/25 08:59 Non-Formulary Medication (Valproic Acid (As Sodium Salt)) 250 mg FEED TUBE BID [facility] Stop: 02/11/25 08:59 Non-Formulary Medication (Olopatadine) 1 drop OPHTHALMIC DAILY ROCIO Stop: 02/11/25 08:59 Ondansetron HCl (Ondansetron Inj 2 Mg/Ml Inj 2 Ml) 4 mg IVP Q6H PRN; Protocol PRN Reason: NAUSEA OR VOMITING Stop: 02/11/25 03:49 Oxycodone/Acetaminophen (Oxycodone/Apap 5/325 Tablet) 1 tab GT Q6H PRN PRN Reason: PAIN SCALE 4-6 (Moderate Stop: 01/17/25 03:49 Sennosides (Senna Tablet) 1 tab GT QDAY ROCIO; Protocol Stop: 02/11/25 08:59 Last Admin: 01/12/25 08:06 Dose: 1 tab Documented By: LUDY Zinc Oxide (Cod Ana Oil/Znox Cream 40% 60 Gm Tube) 1 gm TOP Q2HR PRN PRN Reason: DIAPER RASH Stop: 02/11/25 08:12 Discontinued Medications Lactated Ringer's (Lactated Ringers) 1,000 mls @ 999 mls/hr IV .Q1H1M ONE Stop: 01/11/25 21:03 Last Infusion: 01/11/25 21:33 Dose: Infused Documented By: Admin: 01/11/25 20:32 Dose: 999 mls/hr Documented By: FRANKO Ceftriaxone Sodium/Dextrose (Rocephin/D5w 1gm Iv Premix) 1 gm in 50 mls @ 100 mls/hr IV X1 ONE Stop: 01/11/25 20:33 Last Infusion: 01/11/25 21:45 Dose: Infused Documented By: Admin: 01/11/25 20:31 Dose: 100 mls/hr Documented By: FRANKO Lactated Ringer's (Lactated Ringers) 1,000 mls @ 999 mls/hr IV .Q1H1M ONE Stop: 01/11/25 22:33 Last Infusion: 01/11/25 23:32 Dose: Infused Documented By: Admin: 01/11/25 21:46 Dose: 999 mls/hr Documented By: OLGA Ceftriaxone Sodium/Dextrose (Rocephin/D5w 1gm Iv Premix) 1 gm in 50 mls @ 100 mls/hr IV X1 ONE Stop: 01/12/25 01:19 Last Admin: 01/12/25 01:32 Dose: Not Given Documented By: OLGA Non-Admin Reason: Cancelled by Provider Metronidazole (Flagyl 500 Mg Iv) 500 mg in 100 mls @ 100 mls/hr IV X1 ONE Stop: 01/12/25 01:49 Last Infusion: 01/12/25 03:06 Dose: Infused Documented By: Admin: 01/12/25 01:34 Dose: 100 mls/hr Documented By: OLGA Sodium Chloride (Ns) 1,000 mls @ 999 mls/hr IV .Q1H1M ONE Stop: 01/12/25 02:32 Last Infusion: 01/12/25 03:06 Dose: Infused Documented By: Admin: 01/12/25 01:37 Dose: 999 mls/hr Documented By: OLGA Sodium Chloride (Ns) 1,000 mls @ 100 mls/hr IV .Q10H ROCIO Stop: 02/11/25 03:59 Last Admin: 01/12/25 04:30 Dose: 100 mls/hr Documented By: OLGA Sodium Chloride (Ns) 1,000 mls @ 999 mls/hr IV .Q1H1M ONE Stop: 01/12/25 04:53 Last Admin: 01/12/25 04:29 Dose: 999 mls/hr Documented By: OLGA Cefepime HCl 2 gm/ Sodium (Chloride) 50 mls @ 100 mls/hr IV X1 ONE Stop: 01/12/25 04:29 Last Admin: 01/12/25 04:32 Dose: 100 mls/hr Documented By: OLGA Levetiracetam (Levetiracetam Inj 100 Mg/Ml Vial 5ml) 1,000 mg IVP X1 ONE Stop: 01/11/25 20:09 Last Admin: 01/11/25 20:31 Dose: 1,000 mg Documented By: FRANKO Pantoprazole Sodium (Pantoprazole Inj 40 Mg Vial) 40 mg IVP QDAY ROCIO Stop: 02/11/25 08:59 Last Admin: 01/12/25 08:05 Dose: 40 mg Documented By: LUDY
[2025-01-11 20:21] LABS: Lactate (Lactic Acid) 2.9 mMol/L (0.4-2.0)
[2025-01-11 20:23] LABS: Collection Type, Urine Clean Catch
[2025-01-11 20:30] LABS: Bilirubin,Urine Negative (Negative); Blood,Urine Negative (Negative); Clarity,Urine Clear (Clear/Hazy); Color,Urine Colorless (Lt Yel-Yel); Culture Indicated,Urine Not Indicated; Glucose, Urine Negative (Negative); Hyaline Casts,Urine < 1 /hpf (0-1); Ketones,Urine Negative (Negative); Leukocyte Esterase,Urine Negative (Negative); Nitrite,Urine Negative (Negative); PH,Urine 7.5 (5.0-7.0); Protein,Urine Negative (Neg - Trace); RBC,Urine < 1 /hpf (0-3); Specific Gravity,Urine 1.004 (1.001-1.035); Squamous Epithelial Cell,Urine 8 /hpf (0-5); Urobilinogen,Urine Negative mg/dL (0.0-1.0); WBC,Urine 1 /hpf (0-5)
[2025-01-11] MEDS: levETIRAcetam INJ 100 MG/ML VIAL 5ML 1000 MG IVP (20:31)
[2025-01-11] MEDS: cefTRIAXone/D5w 1gm IV premix 1 GM/50 ML BAG IV (20:31)
[2025-01-11] MEDS: RINGERS LACTATED 1000 ML 1,000 ML 999 ML IV ×2 (20:32→21:46)
[2025-01-11 20:45] LABS: INR 1.0 (0.9-1.3); Partial Thromboplastin Time 27.9 Seconds (22.0-36.0); Prothrombin Time 10.5 Seconds (9.0-12.2)
[2025-01-11 20:49] LABS: Basophils # (Auto) 0.0 Thou/mm3 (0.0-0.2); Basophils % (Auto) 1 % (0-2.5); Eosinophils # (Auto) 0.3 Thou/mm3 (0.0-0.5); Eosinophils % (Auto) 4 % (0-10); Hematocrit 42.9 % (41.0-53.0); Hemoglobin 14.6 g/dL (13.5-16.0); Immature Granulocytes Auto 0.03 Thou/mm3 (0.00-0.00); Lymphocytes # (Auto) 2.2 Thou/mm3 (1.0-4.8); Lymphocytes % (Auto) 29 % (10-50); Mean Corpuscular HGB Conc 34.0 g/dl (31.0-37.0); Mean Corpuscular Hemoglobin 29.3 pg (25.0-35.0); Mean Corpuscular Volume 86 fL (80-100); Monocytes # (Auto) 0.8 Thou/mm3 (0.0-0.8); Monocytes % (Auto) 11 % (0-12); Neutrophils # (Auto) 4.2 Thou/mm3 (1.8-7.7); Neutrophils % (Auto) 55 % (37-80); Nucleated Red Blood Cell # 0.00 Thou/mm3 (0.00-0.00); Nucleated Red Blood Cell % 0 /100 WBC (0); Platelet Count 259 Thou/mm3 (140-440); RDW Standard Deviation 42.4 fL (35.1-43.9); Red Blood Count 4.99 Miln/mm3 (4.50-5.90); White Blood Count 7.6 Thou/mm3 (3.8-10.6)
[2025-01-11 20:53] LABS: Alanine Aminotransferase 48 U/L (10-49); Albumin, Serum 4.4 gm/dL (3.5-5.0); Albumin/Globulin Ratio 1.3 (1.2-2.2); Alkaline Phosphatase 114 U/L (46-116); Anion Gap 12 (7-16); Aspartate Amino Transferase 31 U/L (0-34); BUN/Creatinine Ratio 13 Ratio (12-20); Bilirubin,Total < 0.2 mg/dL (0.3-1.2); Blood Urea Nitrogen < 5 mg/dL (9-23); Calcium 9.8 mg/dL (8.3-10.6); Calcium (Corrected) 9.8 mg/dL (8.5-10.1); Carbon Dioxide 25.0 mMol/L (20.0-31.0); Chloride 94 mMol/L (98-107); Creatinine (Component) 0.4 mg/dL (0.6-1.3); Estimated Creatinine Clearance 278.5 mL/min (>60); Globulin 3.4 gm/dL (2.3-3.5); Glucose 127 mg/dL (74-106); LDH (Lactate Dehydrogenase) 199 U/L (120-246); Magnesium 2.0 mg/dL (1.6-2.6); Osmolality,Calculated 261 (275-295); Phosphorous 2.5 mg/dL (2.4-5.1); Potassium 3.7 mMol/L (3.4-5.1); Procalcitonin < 0.04 ng/ml (0.0-0.49); Sodium 131 mMol/L (136-145); Total Protein 7.8 gm/dL (5.7-8.2); Troponin I < 0.020 ng/mL (0.0-0.045); eGFR > 60 See Note
[2025-01-11 21:11] LABS: B-Type Natriuretic Peptide < 20 pg/mL (0-100)
--- NOTE | 2025-01-11 21:34 | XR_ITS ---
Examination: CT abdomen and pelvis without contrast. Coronal 3-D reconstructions. Sagittal 2-D reconstructions. Date and time of exam:January 11, 2025 1010 hrs., Comparison November 12, 2022 Indications: Sepsis unknown source today CTDI: vol (mGy): 15.2 DLP: (mGycm): 993 Technique: Axial images of the abdomen have been obtained, 3 mm slice thickness Intravenous contrast material has not been administered. Low dose protocols were performed. One or more of the following dose reduction techniques were used; automated exposure control, adjustment of the mA and/or KV according to patient size, use of iterative reconstruction technique. Findings: No focal liver or splenic lesions No gallstones No pancreatic or adrenal mass No renal or ureteral calculi, no hydronephrosis Aorta normal size Normal appendix No bowel obstruction or diverticulitis Abundant stool in the rectum with thickening the rectal wall Prominent Urinary bladder contracted with wall thickening Moderate osteopenia Impression: Abundant stool in the rectum with thickening of the rectal wall, differential would include proctitis, rectal tumor not excluded, recommend direct inspection Marked thickening of urinary bladder wall, consider cystitis
[2025-01-11 21:44] VITALS: BP 117/88; PULSE 90; RESP 14; O2SAT 95
[2025-01-11 23:19] LABS: Reflex Lactate? Y
[2025-01-11 23:26] LABS: Lactic Acid, 3 HR 2.8 mMol/L (0.4-2.0)
[2025-01-11 23:51] VITALS: BP 111/84; PULSE 81; RESP 14; O2SAT 95
[2025-01-12] VITALS (10 sets, daily range): BP systolic 104–124; BP diastolic 61–93; PULSE 80–93; RESP 14–19; TEMP 36.1–37.2; O2SAT 95–96; BMI 22.5
--- NOTE | 2025-01-12 00:58 | EDNOTE_ITS ---
Emergency Room Addendum Addendum Narrative: 2300: Care assumed from Rufino Muñoz NP (emergency mied-level provider). Past medical, surgical, social and family history reviewed. Vitals and home medications reviewed. Results and treatment plan discussed. I will assume the care of the patient at this time and will follow the patient, pending CT. The following addendum documentation note is intended to reflect any pending information, findings, or radiology results not included in the patient?s ini tial chart by the previous shift scribe. RADIOLOGY Abdomen/Pelvis CT: Findings: No focal liver or splenic lesions No gallstones No pancreatic or adrenal mass No renal or ureteral calculi, no hydronephrosis Aorta normal size Normal appendix No bowel obstruction or diverticulitis Abundant stool in the rectum with thickening the rectal wall Prominent Urinary bladder contracted with wall thickening Moderate osteopenia Impression: Abundant stool in the rectum with thickening of the rectal wall, differential would include proctitis, rectal tumor not excluded, recommend direct inspection Marked thickening of urinary bladder wall, consider cystitis Assumed care of 34 y/o severely debilitated male with history of anoxic brain injury in persistent vegetative state, reportedly with low-grade fever at SNF at which he resides and sent for evaluation. Patient was mildy tachycardic and tachypneic upon arrival triggering sepsis protocol. Chest x-ray and UA unremarkable, and WBC within normal limits. Lactic acid marginally elevated at 2.8. CT scan obtained to determine potential focus of infecction. There apears to be possibility of proctitis vs rectal tumor. Digit rectal exam without signs of fecal impact of rectal vault. Administered Flagyl, remains hemodynamically stable, and will consider admission pending cultures. Clinical impression at this time includes acute sepsis, proctitis, and Hx of anoxic brain injury. Despite addditonal fluids, lactic acid climbing. Hospitalist consulted and agrees to admit.
[2025-01-12] MEDS: metroNIDAZOLE/NS 500 MG IVPB 500 MG/100 ML BAG 100 MG IV (01:34)
[2025-01-12] MEDS: SODIUM CHLORIDE 0.9% 1000 ML 1,000 ML 999 ML IV ×3 (01:37→11:40)
[2025-01-12 03:25] LABS: Lactate (Lactic Acid) 4.1 mMol/L (0.4-2.0)
--- NOTE | 2025-01-12 04:09 | PD.RESHP ---
Documentation for date of: 01/12/25 HPI History of Present Illness History of present illness: Patient is a 34-year-old male with past medical history of traumatic brain injury with contractures, anoxic brain injury and persistent vegetative state since 2002, history of seizures, and myocarditis with residual neurologic injury, PEG tube dependence brought to the [facility] ED from SNF on 01/11/2025 for oral fever. Patient is nonverbal retracted deconditioned. History taken per chart review and speaking to ED provider. Reportedly patient had low-grade oral fever at SNF and care provider had concerns has the pt was recently diagnosed with pneumonia.Hence patient was sent to the ED for further evaluation. On presentation patient was found in persistent vegetative state without ability to talk and was also found to have contracted limbs. He was shivering and looked dehydrated. Patient mother was contacted to confirm the code status DNR/DNI. ED Course: On arrival patient was mildly tachycardic with pulse of 105 and temp > 100.4, triggering sepsis protocol. Saturating well on room air. Labs show WBC within normal limits, normal renal panel. Na 131. Trops unremarkable, Pro-Jerzy < 0.04 glucose 127, lactic acid 2.9. In the ED, patient was given 2L of LR and 1L NS. Lactic acid still uptrended to 4.1. Chest x-ray and UA was unremarkable. EKG showed sinus tachycardia with nonspecific ST changes. CT abdomen /pelvis was done determined potential cause of infection. Shows possibility of proctitis versus rectal tumor. Digital rectal exam performed and showed no signs of fecal impaction in rectal vault. Patient was given enema and had a soft bowel movement. Culture was taken, patient received IV ceftriaxone and Flagyl and remained hemodynamically stable. However despite additional fluids lactic acid still uptrending with unclear source. Patient will be admitted for lactic acidosis evaluation and management. Review of Systems unobtainable due to mental status Past Medical History: As above Family History: None Surgical History: Penicillin Social History: Lives in custodial since 2016. Never smoker cigarettes or illicit drug use. Current Medications: Baclofen, clonazepam, levetiracetam, valproic acid, Olaptadine eyedrops,xcorpi Allergies: Penicillin Exam Vital Signs Temp Pulse Resp BP Pulse Ox O2 Del Method 98.9 F 87 14 120/93 H 96 Room Air 01/12/25 01:58 01/12/25 01:58 01/12/25 01:58 01/12/25 01:58 01/12/25 01:58 01/12/25 01:58 Narrative Exam GENERAL APPEARANCE: Patient is in chronic vegetative state with contracture. Shivering. Saturating well on room air. HEENT: NC, AT. Dry mucous membrane. EOMI, clear conjunctiva, oropharynx clear. NECK: Supple without lymphadenopathy. No stiffness or restricted ROM. HEART: Rate rhythm is regular, tachycardic no murmurs rubs or clicks LUNGS:Clear to auscultation no wheezes crackles or rubs tachypneic ABDOMEN: Abdomen is soft no masses positive bowel sounds all 4 quadrants. PEG tube and dressing site prominent in the left lower quadrant of the abdomen. No surrounding erythema or edema BACK: No CVAT, no obvious deformity. EXTREMITIES: No edema. Spastic quadriplegia with contractures NEUROLOGICAL: Chronic vegetative state. Limited due to medical condition Skin: Warm and dry without any rash. Psych: Unable to assess Results: Labs 01/12/25 06:10 01/12/25 06:10 Labs: Short CBC 01/11/25 Range/Units 20:41 WBC 7.6 (3.8-10.6) Thou/mm3 Hgb 14.6 (13.5-16.0) g/dL Hct 42.9 (41.0-53.0) % Plt Count 259 (140-440) Thou/mm3 BMP 01/11/25 20:10 Sodium 131 L Potassium 3.7 Chloride 94 L Carbon Dioxide 25.0 BUN < 5 L Creatinine 0.4 L Glucose 127 H Calcium 9.8 Cardiac Enzymes 01/11/25 Range/Units 20:10 Troponin I < 0.020 (0.0-0.045) ng/mL Liver Function 01/11/25 Range/Units 20:10 Total Bilirubin < 0.2 L (0.3-1.2) mg/dL AST 31 (0-34) U/L ALT 48 (10-49) U/L Alkaline Phosphatase 114 (46-116) U/L Albumin 4.4 (3.5-5.0) gm/dL Urine 01/11/25 Range/Units 20:15 Urine Color Colorless A (Lt Yel-Yel) Urine Clarity Clear (Clear/Hazy) Urine pH 7.5 H (5.0-7.0) Ur Specific [place] 1.004 (1.001-1.035) Urine Protein Negative (Neg - Trace) Urine Glucose (UA) Negative (Negative) Quality Measures Quality Measures VTE prophylaxis Medications Home Medications and Allergies Home Medications ?Medication ?Instructions ?Recorded ?Confirmed ?Type ascorbic acid (vitamin C) 500 mg 500 mg feeding tube DAILY 12/24/23 01/12/25 History tablet (Vitamin C) baclofen 10 mg tablet 10 mg feeding tube Q8HR 12/24/23 01/12/25 History cenobamate 200 mg tablet (Xcopri) 200 mg feeding tube DAILY 12/24/23 01/12/25 History clonazepam 1 mg tablet 1 mg feeding tube BID 12/24/23 01/12/25 History loratadine 10 mg tablet 10 mg feeding tube DAILY 12/24/23 01/12/25 History olopatadine 0.2 % eye drops 1 drp ophthalmic (eye) DAILY 12/24/23 01/12/25 History valproic acid (as sodium salt) 250 250 mg feeding tube BID 12/24/23 01/12/25 History mg/5 mL oral solution zinc oxide-cod liver oil 40 % 1 applic topical TID PRN diaper 06/13/24 01/12/25 History topical paste (Diaper Rash) rash Allergies Allergy/AdvReac Type Severity Reaction Status Date / Time Penicillins Allergy Verified 10/27/24 20:01 Visit Medications Acetaminophen (Acetaminophen 325 Mg Tablet) 650 mg PO Q6H PRN PRN Reason: Fever >101.5 Stop: 02/11/25 03:49 Hydrocodone Bitart/Acetaminophen (Hydrocodone/Apap 10/325 Tab) 1 tab GT Q4HR PRN PRN Reason: PAIN SCALE 7-10 (Severe Stop: 01/17/25 03:49 Baclofen (Baclofen 10 Mg Tablet) 10 mg GT Q8HR ROCIO Stop: 02/11/25 05:59 Clonazepam (Clonazepam 0.5 Mg Tablet) 1 mg GT BID ROCIO Stop: 01/17/25 08:59 Heparin Sodium (Porcine) (Heparin Sod Inj 5000 Unit/Ml Vial) 5,000 unit SC Q8HR ROCIO Stop: 01/26/25 05:59 Sodium Chloride (Ns) 1,000 mls @ 100 mls/hr IV .Q10H ROCIO Stop: 02/11/25 03:59 Sodium Chloride (Ns) 1,000 mls @ 999 mls/hr IV .Q1H1M ONE Stop: 01/12/25 04:53 Cefepime HCl 2 gm/ Sodium (Chloride) 50 mls @ 100 mls/hr IV Q12HR ROCIO Stop: 01/19/25 03:56 Cefepime HCl 2 gm/ Sodium (Chloride) 50 mls @ 100 mls/hr IV X1 ONE Stop: 01/12/25 04:29 Lactulose (Lactulose Syrup 20 Gm/30 Ml Udc) 10 gm GT QDAY ROCIO; Protocol Stop: 02/11/25 08:59 Levetiracetam (Levetiracetam Liqd 500 Mg/5 Ml Udc) 100 mg GT BID ROCIO Stop: 02/11/25 08:59 Loratadine (Loratadine 10 Mg Tablet) 10 mg GT DAILY [facility] Stop: 02/11/25 08:59 Non-Formulary Medication (Cenobamate [Xcopri]) 200 mg FEED TUBE DAILY [facility] Stop: 02/11/25 08:59 Non-Formulary Medication (Valproic Acid (As Sodium Salt)) 250 mg FEED TUBE BID [facility] Stop: 02/11/25 08:59 Non-Formulary Medication (Zinc Oxide-Cod Liver Oil [Diaper Rash]) 1 applicatio TOPICAL TID PRN PRN Reason: diaper rash Non-Formulary Medication (Olopatadine) 1 drop OPHTHALMIC DAILY [facility] Stop: 02/11/25 08:59 Ondansetron HCl (Ondansetron Inj 2 Mg/Ml Inj 2 Ml) 4 mg IVP Q6H PRN; Protocol PRN Reason: NAUSEA OR VOMITING Stop: 02/11/25 03:49 Oxycodone/Acetaminophen (Oxycodone/Apap 5/325 Tablet) 1 tab GT Q6H PRN PRN Reason: PAIN SCALE 4-6 (Moderate Stop: 01/17/25 03:49 Pantoprazole Sodium (Pantoprazole Inj 40 Mg Vial) 40 mg IVP QDAY [facility] Stop: 02/11/25 08:59 Sennosides (Senna Tablet) 1 tab GT QDAY [facility]; Protocol Stop: 02/11/25 08:59 Discontinued Medications Lactated Ringer's (Lactated Ringers) 1,000 mls @ 999 mls/hr IV .Q1H1M ONE Stop: 01/11/25 21:03 Last Infusion: 01/11/25 21:33 Dose: Infused Ceftriaxone Sodium/Dextrose (Rocephin/D5w 1gm Iv Premix) 1 gm in 50 mls @ 100 mls/hr IV X1 ONE Stop: 01/11/25 20:33 Last Infusion: 01/11/25 21:45 Dose: Infused Lactated Ringer's (Lactated Ringers) 1,000 mls @ 999 mls/hr IV .Q1H1M ONE Stop: 01/11/25 22:33 Last Infusion: 01/11/25 23:32 Dose: Infused Ceftriaxone Sodium/Dextrose (Rocephin/D5w 1gm Iv Premix) 1 gm in 50 mls @ 100 mls/hr IV X1 ONE Stop: 01/12/25 01:19 Last Admin: 01/12/25 01:32 Dose: Not Given Metronidazole (Flagyl 500 Mg Iv) 500 mg in 100 mls @ 100 mls/hr IV X1 ONE Stop: 01/12/25 01:49 Last Infusion: 01/12/25 03:06 Dose: Infused Sodium Chloride (Ns) 1,000 mls @ 999 mls/hr IV .Q1H1M ONE Stop: 01/12/25 02:32 Last Infusion: 01/12/25 03:06 Dose: Infused Levetiracetam (Levetiracetam Inj 100 Mg/Ml Vial 5ml) 1,000 mg IVP X1 ONE Stop: 01/11/25 20:09 Last Admin: 01/11/25 20:31 Dose: 1,000 mg Assessment & Plan Plan Patient is a 34-year-old male with past medical history of traumatic brain injury with contractures, anoxic brain injury and persistent vegetative state since 2002, history of seizures, and myocarditis with residual neurologic injury, PEG tube dependence brought to the [facility] ED from [facility] on 01/11/2025 for fever. On presentation have elevated lactic acid. Admitted for further evaluation of lactic acidosis of unclear source. #Lactic acidosis, likely type A Patient brought in from assisted for oral fever. On arrival was tachypneic, tachycardic, diaphoretic hence triggered as septic protocol. However, on evaluation patient was afebrile, vitals were stable except for mild tachycardia post IV fluids and ceftriaxone. No WBC, Pro-Jerzy was negative hence low suspicion for acute sepsis. Lactic acidosis 2.9 uptrend to 4.1 after 3 L of fluid. Lactic acidosis is most likely Type A, related to hypoperfusion, in the setting of the patient's persistent vegetative state. The patient receives nutrition via PEG tube and may be dehydrated due to inadequate fluid intake. UA negative for UTI. ? Continue IV NS bolus and D5 NS at 100mls/hr (since pt had fingerstick gluc of 95) ? Daily labs - Monitor lactate level - [place] and oxycodone for pain as needed - Strict ins and out - Treat underlying infection mentioned below #CT findings of proctitis vs rectal tumor #Constipation 01/11/2025 CT abdominal/pelvis showed. Abundant stool in the rectum with thickening of the rectal wall, differential would include proctitis, rectal tumor not excluded. Also marked thickening of urinary bladder wall. Digital rectal exam performed and showed no signs of fecal impaction in rectal vault nonetheless patient was given enema and had a soft bowel movement. Low suspicion for proctatis as stated no kimberly blood per rectum, no mucus or pus noted on ARIEL, no elevated WBC count, and afebrile upon evaluation. UA negative leukocyte esterase and pyuria. Patient received IV ceftriaxone and Flagyl in the ED to cover infectious causes of fever. - Started IV cefepime 2gm - Indwelling barfield catheter in place - Lactulose 10 gm GT and senna GT - Pending urine culture - Pending blood culture - repeat EKG #Mild hyponatremia DDx: GI losses versus medication induced versus dehydration. On admission sodium 131. -Patient is in chronic vegetative state - Continue to monitor CHEM panel #Chronic persistent vegetative state s/p traumatic brain injury #History of seizure disorder Patient takes Keppra 100mg BID, clonazepam 1mg BID, baclofen 10mg and xcopri in custodial. ? Resumed home medications ? Seizure precautions #PEG tube -Recent dietitian referral -Wound care referral -Water Flushes of 30 mL/HR Hospital management: Lines: peripheral IV Diet: PEG tube Bowel: Senna and lactulose GI prophylaxis: pantoprazole 40 mg DVT prophylaxis: Heparin SC Disposition: MedSurg for lactic acidosis workup and management CODE STATUS: Full code Patient seen and assessed under supervision of attending physician and discuss with senior resident Dr. Sandra PGY-2 Monica Villalta MD PGY-1, Internal Medicine Please note: this document was transcribed using voice recognition technology; minor inaccuracies may be present. Attending Provider Attestation/Addendum 34-year-old male patient with history of traumatic brain injury, persistent vegetative state (decerebrate posturing), seizure was admitted for fever and lactic acidosis. CT scan showed proctitis, constipation. Patient was admitted for IV fluids, IV antibiotic. Further workup for lactic acidosis and fever. Check culture results. I discussed with and supervised the resident physician who took care of this patient. I agree with the assessment and plan as above.
[2025-01-12] MEDS: SODIUM CHLORIDE 0.9% 1000 ML 1,000 ML 100 ML IV (04:30)
[2025-01-12] MEDS: CEFEPIME INJ 2 GM in SODIUM CHLORIDE 0.9% (Popper) 50 ML IV (04:32)
[2025-01-12] MEDS: DEXTROSE 5%-NS 500 ML 100 ML IV (05:05)
[2025-01-12] MEDS: BACLOFEN 10 MG TABLET GT ×3 (06:10→21:34)
[2025-01-12] MEDS: HEPARIN SOD INJ 5000 UNIT/ML VIAL SC ×3 (06:10→21:34)
[2025-01-12 06:17] LABS: Lactate (Lactic Acid) 3.2 mMol/L (0.4-2.0)
[2025-01-12 06:18] LABS: Basophils # (Auto) 0.0 Thou/mm3 (0.0-0.2); Basophils % (Auto) 1 % (0-2.5); Eosinophils # (Auto) 0.3 Thou/mm3 (0.0-0.5); Eosinophils % (Auto) 4 % (0-10); Hematocrit 41.1 % (41.0-53.0); Hemoglobin 13.8 g/dL (13.5-16.0); Immature Granulocytes Auto 0.03 Thou/mm3 (0.00-0.00); Lymphocytes # (Auto) 1.2 Thou/mm3 (1.0-4.8); Lymphocytes % (Auto) 19 % (10-50); Mean Corpuscular HGB Conc 33.6 g/dl (31.0-37.0); Mean Corpuscular Hemoglobin 29.4 pg (25.0-35.0); Mean Corpuscular Volume 87 fL (80-100); Monocytes # (Auto) 0.6 Thou/mm3 (0.0-0.8); Monocytes % (Auto) 9 % (0-12); Neutrophils # (Auto) 4.2 Thou/mm3 (1.8-7.7); Neutrophils % (Auto) 67 % (37-80); Nucleated Red Blood Cell # 0.00 Thou/mm3 (0.00-0.00); Nucleated Red Blood Cell % 0 /100 WBC (0); Platelet Count 239 Thou/mm3 (140-440); RDW Standard Deviation 43.7 fL (35.1-43.9); Red Blood Count 4.70 Miln/mm3 (4.50-5.90); White Blood Count 6.4 Thou/mm3 (3.8-10.6)
[2025-01-12 06:21] LABS: Reflex Lactate? Y
[2025-01-12 06:38] LABS: Anion Gap 11 (7-16); BUN/Creatinine Ratio 13 Ratio (12-20); Blood Urea Nitrogen < 5 mg/dL (9-23); Calcium 9.2 mg/dL (8.3-10.6); Carbon Dioxide 25.6 mMol/L (20.0-31.0); Chloride 103 mMol/L (98-107); Creatinine (Component) 0.4 mg/dL (0.6-1.3); Estimated Creatinine Clearance 272.3 mL/min (>60); Glucose 104 mg/dL (74-106); Magnesium 1.9 mg/dL (1.6-2.6); Osmolality,Calculated 276 (275-295); Potassium 4.1 mMol/L (3.4-5.1); Sodium 140 mMol/L (136-145); eGFR > 60 See Note
[2025-01-12] MEDS: LACTULOSE SYRUP 20 GM/30 ML UDC 10 GM GT (08:05)
[2025-01-12] MEDS: levETIRAcetam LIQD 500 MG/5 ML UDC 100 MG GT (08:06)
--- NOTE | 2025-01-12 08:11 | ESPR_ITS ---
<Statement entered by Kelli Gil MD - 01/18/25 09:11> I reviewed above note and agree with findings and plans. I have also personally examined the patient with medicine team and went over assessment and plan with medical team including analysis intern and resident physician. <Statement entered by Meeta Thompson MD - 01/13/25 15:56> I discussed with and supervised the analysis intern physician who took care of this patient. I personally saw and examined the patient and discussed the assessment and plan with the entire medicine team, including my attending Dr. Gil, I agree with most of the assessment and plan as documented below Meeta Thompson M.D. PGY-3 Documentation for date of: 01/12/25 Subjective Subjective Interval history: Patient is a 34-year-old male with past medical history of traumatic brain injury with contractures, anoxic brain injury and persistent vegetative state since 2002, history of seizures, and myocarditis with residual neurologic injury, PEG tube dependence brought to the [facility] ED from SNF on 01/11/2025 for fever. On presentation have elevated lactic acid. Admitted for further evaluation of lactic acidosis likely 2/2 valproic acid (holding while inpatient) 01/12/2025: Patient seen and examined at bedside. Had discussion with Dr. Lainez, (pts legal medical decision maker) who states that while inpatient, patient is to be kept DNR/DNI, upon discharge, his code status will be FULL. continue with IVF. holding valproic acid. Continue trending lactic acid Exam Vital Signs Temp Pulse Resp BP Pulse Ox O2 Del Method 97.6 F 82 18 119/85 H 96 Room Air 01/12/25 07:24 01/12/25 07:24 01/12/25 07:24 01/12/25 07:24 01/12/25 07:24 01/12/25 07:24 Narrative Exam GENERAL APPEARANCE: Patient is in chronic vegetative state with contracture. Saturating well on room air. HEENT: NC, AT. Dry mucous membrane. EOMI, clear conjunctiva, oropharynx clear. NECK: Supple without lymphadenopathy. HEART: Rate rhythm is regular, regular rate, no murmurs rubs or clicks LUNGS:Clear to auscultation no wheezes crackles or rubs, tachypnic and coarse ronchi, snoring. ABDOMEN: Abdomen is soft no masses positive bowel sounds all 4 quadrants. PEG tube and dressing site prominent in the left lower quadrant of the abdomen. No surrounding erythema or edema BACK: No CVAT, no obvious deformity. EXTREMITIES: No edema. Spastic quadriplegia with contractures NEUROLOGICAL: Chronic vegetative state. Limited due to medical condition Skin: Warm and dry without any rash. Psych: Unable to assess Objective Labs 01/12/25 06:10 01/12/25 06:10 Labs: Laboratory Results - last 24 hr 01/11/25 01/11/25 01/11/25 20:10 20:15 20:41 WBC 7.6 RBC 4.99 Hgb 14.6 Hct 42.9 MCV 86 MCH 29.3 MCHC 34.0 RDW Std Deviation 42.4 Plt Count 259 Neut % (Auto) 55 Lymph % (Auto) 29 [place] % (Auto) 11 Eos % (Auto) 4 Baso % (Auto) 1 Neut # (Auto) 4.2 Lymph # (Auto) 2.2 [place] # (Auto) 0.8 Eos # (Auto) 0.3 Baso # (Auto) 0.0 Immature Gran # (Auto) 0.03 H Absolute Nucleated RBC 0.00 Immature Gran % 0 Nucleated RBC % 0 PT 10.5 INR 1.0 APTT 27.9 Sodium 131 L Potassium 3.7 Chloride 94 L Carbon Dioxide 25.0 Anion Gap 12 BUN < 5 L Creatinine 0.4 L Estim Creat Clear Calc 278.5 eGFR > 60 BUN/Creatinine Ratio 13 Glucose 127 H Calculated Osmolality 261 L Lactic Acid 2.9 H Calcium 9.8 Corrected Calcium 9.8 Phosphorus 2.5 Magnesium 2.0 Total Bilirubin < 0.2 L AST 31 ALT 48 Alkaline Phosphatase 114 Lactate Dehydrogenase 199 Troponin I < 0.020 B-Natriuretic Peptide < 20 Total Protein 7.8 Albumin 4.4 Globulin 3.4 Albumin/Globulin Ratio 1.3 Procalcitonin < 0.04 Ur Collection Type Clean Catch Urine Color Colorless A Urine Clarity Clear Urine pH 7.5 H Ur Specific [place] 1.004 Urine Protein Negative Urine Glucose (UA) Negative Urine Ketones Negative Urine Blood Negative Urine Nitrite Negative Urine Bilirubin Negative Urine Urobilinogen (Auto) Negative Ur Leukocyte Esterase Negative Urine RBC < 1 Urine WBC 1 Ur Squamous Epith Cells 8 H Urine Bacteria None Hyaline Casts < 1 Ur Culture Indicated? Not Indicated 01/11/25 01/12/25 01/12/25 23:18 03:10 06:10 WBC 6.4 RBC 4.70 Hgb 13.8 Hct 41.1 MCV 87 MCH 29.4 MCHC 33.6 RDW Std Deviation 43.7 Plt Count 239 Neut % (Auto) 67 Lymph % (Auto) 19 [place] % (Auto) 9 Eos % (Auto) 4 Baso % (Auto) 1 Neut # (Auto) 4.2 Lymph # (Auto) 1.2 [place] # (Auto) 0.6 Eos # (Auto) 0.3 Baso # (Auto) 0.0 Immature Gran # (Auto) 0.03 H Absolute Nucleated RBC 0.00 Immature Gran % 1 H Nucleated RBC % 0 PT INR APTT Sodium 140 Potassium 4.1 Chloride 103 Carbon Dioxide 25.6 Anion Gap 11 BUN < 5 L Creatinine 0.4 L Estim Creat Clear Calc 272.3 eGFR > 60 BUN/Creatinine Ratio 13 Glucose 104 Calculated Osmolality 276 Lactic Acid 2.8 H 4.1 H* 3.2 H Calcium 9.2 Corrected Calcium Phosphorus Magnesium 1.9 Total Bilirubin AST ALT Alkaline Phosphatase Lactate Dehydrogenase Troponin I B-Natriuretic Peptide Total Protein Albumin Globulin Albumin/Globulin Ratio Procalcitonin Ur Collection Type Urine Color Urine Clarity Urine pH Ur Specific [place] Urine Protein Urine Glucose (UA) Urine Ketones Urine Blood Urine Nitrite Urine Bilirubin Urine Urobilinogen (Auto) Ur Leukocyte Esterase Urine RBC Urine WBC Ur Squamous Epith Cells Urine Bacteria Hyaline Casts Ur Culture Indicated? Quality Measures Quality Measures VTE prophylaxis Assessment & Plan Assessment Current Active Medications: Generic Name Dose Route Start Last Admin Trade Name Freq PRN Reason Stop Dose Admin Acetaminophen 650 mg 01/12/25 03:50 Acetaminophen 325 Mg Tablet PO 02/11/25 03:49 Q6H PRN Fever >101.5 Hydrocodone Bitart/Acetaminophen 1 tab 01/12/25 03:50 Hydrocodone/Apap 10/325 Tab GT 01/17/25 03:49 Q4HR PRN PAIN SCALE 7-10 (Severe Baclofen 10 mg 01/12/25 06:00 01/12/25 06:10 Baclofen 10 Mg Tablet GT 02/11/25 05:59 10 mg Q8HR ROCIO Administration Clonazepam 1 mg 01/12/25 09:00 01/12/25 08:06 Clonazepam 0.5 Mg Tablet GT 01/17/25 08:59 1 mg BID ROCIO Administration Heparin Sodium (Porcine) 5,000 unit 01/12/25 06:00 01/12/25 06:10 Heparin Sod Inj 5000 Unit/Ml Vial SC 01/26/25 05:59 5,000 unit Q8HR ROCIO Administration Cefepime HCl 2 gm/ Sodium 50 mls @ 100 mls/hr 01/12/25 21:00 Chloride IV 01/19/25 20:59 Q12HR ROCIO Dextrose/Sodium Chloride 500 mls @ 100 mls/hr 01/12/25 04:45 01/12/25 05:05 D5-Ns IV 02/11/25 04:44 100 mls/hr .Q5H ROCIO Administration Lactated Ringer's 1,000 mls @ 85 mls/hr 01/12/25 08:04 Lactated Ringers IV 01/13/25 07:35 .[id number] ROCIO Lactulose 10 gm 01/12/25 09:00 01/12/25 08:05 Lactulose Syrup 20 Gm/30 Ml Udc GT 02/11/25 08:59 10 gm QDAY ROCIO Administration Protocol Levetiracetam 100 mg 01/12/25 09:00 01/12/25 08:06 Levetiracetam Liqd 500 Mg/5 Ml Udc GT 02/11/25 08:59 100 mg BID ROCIO Administration Loratadine 10 mg 01/12/25 09:00 01/12/25 08:07 Loratadine 10 Mg Tablet GT 02/11/25 08:59 10 mg DAILY ROCIO Administration Non-Formulary Medication 200 mg 01/12/25 09:00 Cenobamate [Xcopri] FEED TUBE 02/11/25 08:59 DAILY ROCIO Non-Formulary Medication 250 mg 01/12/25 09:00 Valproic Acid (As Sodium Salt) FEED TUBE 02/11/25 08:59 BID ROCIO Non-Formulary Medication 1 applicatio 01/12/25 03:58 Zinc Oxide-Cod Liver Oil [Diaper Rash] TOPICAL TID PRN diaper rash Non-Formulary Medication 1 drop 01/12/25 09:00 Olopatadine OPHTHALMIC 02/11/25 08:59 DAILY [facility]IO Ondansetron HCl 4 mg 01/12/25 03:50 Ondansetron Inj 2 Mg/Ml Inj 2 Ml IVP 02/11/25 03:49 Q6H PRN NAUSEA OR VOMITING Protocol Oxycodone/Acetaminophen 1 tab 01/12/25 03:50 Oxycodone/Apap 5/325 Tablet GT 01/17/25 03:49 Q6H PRN PAIN SCALE 4-6 (Moderate Pantoprazole Sodium 40 mg 01/12/25 09:00 01/12/25 08:05 Pantoprazole Inj 40 Mg Vial IVP 02/11/25 08:59 40 mg QDAY ROCIO Administration Sennosides 1 tab 01/12/25 09:00 01/12/25 08:06 Senna Tablet GT 02/11/25 08:59 1 tab QDAY ROCIO Administration Protocol Plan Patient is a 34-year-old male with past medical history of traumatic brain injury with contractures, anoxic brain injury and persistent vegetative state since 2002, history of seizures, and myocarditis with residual neurologic injury, PEG tube dependence brought to the [facility] ED from SNF on 01/11/2025 for fever. On presentation have elevated lactic acid. Admitted for further evaluation of lactic acidosis, suspect 2/2 valproic acid vs seizure activity vs hypoperfusion. #Lactic acidosis, likely mixed a and b- resolving suspect 2/2 valproic acid vs seizure activity Patient brought in from retirement for oral fever. On arrival was tachypneic, tachycardic, diaphoretic hence triggered as septic protocol. However, on evaluation patient was afebrile, vitals were stable except for mild tachycardia post IV fluids and ceftriaxone. No WBC, Pro-Jerzy was negative hence low suspicion for acute sepsis. Lactic acidosis 2.9 uptrend to 4.1 after 3 L of fluid. Lactic acidosis is most likely a combination of type a and b, related to hypoperfusion, in the setting of the patient's persistent vegetative state. The patient receives nutrition via PEG tube and may be dehydrated due to inadequate fluid intake. and type B lactic acidosis given patient is on valproic acid, pt lactic acidosis could also be caused by recent seizure activity. UA negative for UTI. ? Daily labs - Monitor lactate level 1800hrs - given additional 1L bolus LR - [place] and oxycodone for pain as needed - Strict ins and out - HOLD valproic acid - Pending urine culture - Pending blood culture #Chronic persistent vegetative state s/p traumatic brain injury #History of seizure disorder Patient takes Keppra 750 BID, clonazepam 1mg BID, baclofen 10mg pt mother will be bringing xcopri (not on formulary) ? Resumed home medications - holding valproic acid ? Seizure precautions - consider neuro consult for c/f undertreating seizures and possible EEG. #PEG tube -Recent dietitian referral, currently on jevity feeds. -Wound care referral -Water Flushes of 30 mL/HR #Constipation resolved with enema 01/11/2025 CT abdominal/pelvis showed. Abundant stool in the rectum with thickening of the rectal wall, differential would include proctitis, rectal tumor not excluded. Also marked thickening of urinary bladder wall. Digital rectal exam performed and showed no signs of fecal impaction in rectal vault nonetheless patient was given enema and had a soft bowel movement. Low suspicion for proctatis as stated no kimberly blood per rectum, no mucus or pus noted on ARIEL, no elevated WBC count, and afebrile upon evaluation. UA negative leukocyte esterase and pyuria. Patient received IV ceftriaxone and Flagyl in the ED to cover infectious causes of fever. - d/c IV cefepime 2gm (01/12) given no leukocytosis, remains afebrile. - Indwelling barfield catheter in place - Lactulose 10 gm GT and senna GT #Mild hyponatremia- resolved DDx: GI losses versus medication induced versus dehydration. On admission sodium 131. Hospital management: Lines: peripheral IV Diet: PEG tube Bowel: Senna and lactulose GI prophylaxis: pantoprazole 40 mg DVT prophylaxis: Heparin SC Disposition: MedSur for lactic acidosis workup and management CODE STATUS: DNR and DNI, however upon discharge, pt will be sent as FULL CODE (discussed pt case with Dr. Lainez) Plan discussed with Dr Thompson, and Dr. Jeffery Love MD PGY1
[2025-01-12 09:17] LABS: Reflex Lactate? Y
[2025-01-12 09:53] LABS: Lactic Acid, 3 HR 4.0 mMol/L (0.4-2.0)
[2025-01-12] MEDS: RINGERS LACTATED 1000 ML 1,000 ML 85 ML IV (10:44)
--- NOTE | 2025-01-12 11:43 | PC.DIETICIAN ---
Nutrition prescription Jevity 1.2 at 35 ml/hr via PEG tube by pump. Advance 10 ml every 8 hrs to goal rate of 55 ml/hr x 24 hrs. If no IV fluids, water flushes of 40 ml/hr (or per MD).
--- NOTE | 2025-01-12 12:34 | PC.SS ---
Polisher Implant (GEE) Elayne reviewed the patient's chart to complete an initial assessment. Per chart review, the patient presents to the ER via EMS with c/o oral fever, and they are concerned because he was here recently with a pneumonia. Patient has a history of anoxic brain injury, seizure disorder, myocarditis, with an admission in April for pneumonia. ironworker machine operator contacted patient's mother, Tona Munoz, , but there was no answer. SW called the patient's father, Ralph Munoz, , and completed the assessment. Per Mr. Munoz, the patient is Colten Munoz, 34 y/o male residing at [facility] at [address] [place] [address]. finance business manager is Sade, . Mr. Munoz reports the patient is connected to [facility], disease case manager, Marisol Esparza, . SW called [facility] ALEX Damon, who reports that the patient is not conserved, the patient was removed from the parents, and APS was involved. Per Marisol, medical decisions are made as a team with [facility] and parents. Patient needs assistance with all ADLs. Patient is bedbound and nonverbal. Patient's PCP is from [facility]. Per [facility] ALEX Damon and Mr. Munoz, the patient's discharge plan is to return to the [facility]. GEE called group tester Sade, who reports that the patient will need gourney transportation. Mr. Munoz reports wanting the patient to be DNR/DNI; GEE followed up with [facility] ALEX Damon, who reports that she needs to consult with her customer experience manager and will get back to . GEE followed up with Dr. Thompson. Surrogate medical decision maker: [facility] Marisol Esparza, , and parents; Tona Munoz, , and Ralph Munoz, .?? Discharge plan: Back to [facility].
[2025-01-12 13:21] LABS: Lactate (Lactic Acid) 1.4 mMol/L (0.4-2.0)
--- NOTE | 2025-01-12 14:26 | PC.NURSE ---
spoke with pt's mom who said she could bring in the Xcopri in a couple of hours
--- NOTE | 2025-01-12 15:15 | PC.SS ---
Rounding note: Monitoring lactic acid, pending further workup. [facility]
[2025-01-12 15:33] LABS: Lactate (Lactic Acid) 2.6 mMol/L (0.4-2.0)
[2025-01-12] MEDS: RINGERS LACTATED 1000 ML 1,000 ML 999 ML IV (17:11)
[2025-01-12 18:02] LABS: Lactate (Lactic Acid) 2.5 mMol/L (0.4-2.0)
[2025-01-12] MEDS: XCOPRI 200 MG GT (18:10)
[2025-01-12 18:30] LABS: Reflex Lactate? Y
[2025-01-12 21:01] LABS: Reflex Lactate? Y
[2025-01-12] MEDS: levETIRAcetam LIQD 500 MG/5 ML UDC 750 MG GT (21:34)
[2025-01-12 21:38] LABS: Lactic Acid, 3 HR 2.7 mMol/L (0.4-2.0)
[2025-01-13] VITALS (8 sets, daily range): BP systolic 104–123; BP diastolic 69–93; PULSE 72–94; RESP 15–21; TEMP 35.7–36.6; O2SAT 95–100; BMI 22.5
[2025-01-13] MEDS: RINGERS LACTATED 1000 ML 1,000 ML 85 ML IV (01:35)
[2025-01-13] MEDS: BACLOFEN 10 MG TABLET GT ×3 (06:08→21:09)
[2025-01-13 06:12] LABS: Basophils # (Auto) 0.1 Thou/mm3 (0.0-0.2); Basophils % (Auto) 1 % (0-2.5); Eosinophils # (Auto) 0.4 Thou/mm3 (0.0-0.5); Eosinophils % (Auto) 7 % (0-10); Hematocrit 43.8 % (41.0-53.0); Hemoglobin 14.4 g/dL (13.5-16.0); Immature Granulocytes Auto 0.01 Thou/mm3 (0.00-0.00); Lymphocytes # (Auto) 1.6 Thou/mm3 (1.0-4.8); Lymphocytes % (Auto) 24 % (10-50); Mean Corpuscular HGB Conc 32.9 g/dl (31.0-37.0); Mean Corpuscular Hemoglobin 29.5 pg (25.0-35.0); Mean Corpuscular Volume 90 fL (80-100); Monocytes # (Auto) 0.6 Thou/mm3 (0.0-0.8); Monocytes % (Auto) 9 % (0-12); Neutrophils # (Auto) 3.7 Thou/mm3 (1.8-7.7); Neutrophils % (Auto) 58 % (37-80); Nucleated Red Blood Cell # 0.00 Thou/mm3 (0.00-0.00); Nucleated Red Blood Cell % 0 /100 WBC (0); Platelet Count 225 Thou/mm3 (140-440); RDW Standard Deviation 44.8 fL (35.1-43.9); Red Blood Count 4.88 Miln/mm3 (4.50-5.90); White Blood Count 6.4 Thou/mm3 (3.8-10.6)
[2025-01-13 07:50] LABS: Anion Gap 11 (7-16); BUN/Creatinine Ratio 13 Ratio (12-20); Blood Urea Nitrogen < 5 mg/dL (9-23); Calcium 9.7 mg/dL (8.3-10.6); Carbon Dioxide 29.7 mMol/L (20.0-31.0); Chloride 96 mMol/L (98-107); Creatinine (Component) 0.4 mg/dL (0.6-1.3); Estimated Creatinine Clearance 272.3 mL/min (>60); Glucose 100 mg/dL (74-106); Magnesium 1.7 mg/dL (1.6-2.6); Osmolality,Calculated 271 (275-295); Phosphorous 4.5 mg/dL (2.4-5.1); Potassium 4.4 mMol/L (3.4-5.1); Sodium 137 mMol/L (136-145); eGFR > 60 See Note
[2025-01-13 09:20] LABS: Lactate (Lactic Acid) 2.9 mMol/L (0.4-2.0)
--- NOTE | 2025-01-13 09:49 | PC.SS ---
Follow up note: Neuro is following. Pending EEG. Pt will return to snf upon dc.
[2025-01-13] MEDS: LACTULOSE SYRUP 20 GM/30 ML UDC 10 GM GT (09:56)
[2025-01-13] MEDS: levETIRAcetam LIQD 500 MG/5 ML UDC 750 MG GT ×2 (09:57→20:30)
[2025-01-13] MEDS: HEPARIN SOD INJ 5000 UNIT/ML VIAL SC ×2 (09:57→20:31)
[2025-01-13] MEDS: LANSOPRAZOLE 30 MG TAB.RAP.DR GT (09:59)
[2025-01-13] MEDS: XCOPRI 200 MG GT (10:25)
[2025-01-13 12:18] LABS: Reflex Lactate? Y
[2025-01-13 13:27] LABS: Lactic Acid, 3 HR 2.5 mMol/L (0.4-2.0)
--- NOTE | 2025-01-13 14:34 | ESPR_ITS ---
<Statement entered by Kelli Gil MD - 01/18/25 09:12> I reviewed above note and agree with findings and plans. I have also personally examined the patient with medicine team and went over assessment and plan with medical team including information technology intern and resident physician. Documentation for date of: 01/13/25 Subjective Subjective Interval history: Patient examined at bedside. No events overnight. Vitals have remained stable and lactic acid is downtrending from 2.7-2.5 with fluids. Continue to hold valproic acid due to his lactic acidosis. Blood cultures are negative. We will consult neurology for further recommendations on antiseizure medications. Continue clonazepam 1 g twice daily and Keppra 750 twice daily. Anticipate discharge next 24 hours back to [facility]. Exam Vital Signs Temp Pulse Resp BP Pulse Ox O2 Del Method 97.9 F 81 21 H 121/86 H 98 Room Air 01/13/25 12:00 01/13/25 12:45 01/13/25 12:00 01/13/25 12:00 01/13/25 12:00 01/13/25 12:00 Narrative Exam GENERAL APPEARANCE: Patient is in chronic vegetative state with contracture. Saturating well on room air. HEENT: NC, AT. Dry mucous membrane. EOMI, clear conjunctiva, oropharynx clear. NECK: Supple without lymphadenopathy. HEART: Rate rhythm is regular, regular rate, no murmurs rubs or clicks LUNGS:Clear to auscultation no wheezes crackles or rubs, tachypnic and coarse ronchi, snoring. ABDOMEN: Abdomen is soft no masses positive bowel sounds all 4 quadrants. PEG tube and dressing site prominent in the left lower quadrant of the abdomen. No surrounding erythema or edema BACK: No CVAT, no obvious deformity. EXTREMITIES: No edema. Spastic quadriplegia with contractures NEUROLOGICAL: Chronic vegetative state. Skin: Warm and dry without any rash. Psych: Unable to assess Objective Labs 01/13/25 05:16 01/13/25 06:50 Labs: Laboratory Results - last 24 hr 01/12/25 01/12/25 01/12/25 15:20 17:56 21:12 WBC RBC Hgb Hct MCV MCH MCHC RDW Std Deviation Plt Count Neut % (Auto) Lymph % (Auto) [place] % (Auto) Eos % (Auto) Baso % (Auto) Neut # (Auto) Lymph # (Auto) [place] # (Auto) Eos # (Auto) Baso # (Auto) Immature Gran # (Auto) Absolute Nucleated RBC Immature Gran % Nucleated RBC % Sodium Potassium Chloride Carbon Dioxide Anion Gap BUN Creatinine Estim Creat Clear Calc eGFR BUN/Creatinine Ratio Glucose Calculated Osmolality Lactic Acid 2.6 H 2.5 H 2.7 H Calcium Phosphorus Magnesium 01/13/25 01/13/25 01/13/25 05:16 06:50 09:11 WBC 6.4 RBC 4.88 Hgb 14.4 Hct 43.8 MCV 90 MCH 29.5 MCHC 32.9 RDW Std Deviation 44.8 H Plt Count 225 Neut % (Auto) 58 Lymph % (Auto) 24 Bro[place] % (Auto) 9 Eos % (Auto) 7 Baso % (Auto) 1 Neut # (Auto) 3.7 Lymph # (Auto) 1.6 [place] # (Auto) 0.6 Eos # (Auto) 0.4 Baso # (Auto) 0.1 Immature Gran # (Auto) 0.01 H Absolute Nucleated RBC 0.00 Immature Gran % 0 Nucleated RBC % 0 Sodium 137 Potassium 4.4 Chloride 96 L Carbon Dioxide 29.7 Anion Gap 11 BUN < 5 L Creatinine 0.4 L Estim Creat Clear Calc 272.3 eGFR > 60 BUN/Creatinine Ratio 13 Glucose 100 Calculated Osmolality 271 L Lactic Acid 2.9 H Calcium 9.7 Phosphorus 4.5 Magnesium 1.7 01/13/25 13:10 WBC RBC Hgb Hct MCV MCH MCHC RDW Std Deviation Plt Count Neut % (Auto) Lymph % (Auto) [place] % (Auto) Eos % (Auto) Baso % (Auto) Neut # (Auto) Lymph # (Auto) [place] # (Auto) Eos # (Auto) Baso # (Auto) Immature Gran # (Auto) Absolute Nucleated RBC Immature Gran % Nucleated RBC % Sodium Potassium Chloride Carbon Dioxide Anion Gap BUN Creatinine Estim Creat Clear Calc eGFR BUN/Creatinine Ratio Glucose Calculated Osmolality Lactic Acid 2.5 H Calcium Phosphorus Magnesium Quality Measures Quality Measures none Assessment & Plan Assessment Current Active Medications: Generic Name Dose Route Start Last Admin Trade Name Freq PRN Reason Stop Dose Admin Acetaminophen 650 mg 01/12/25 03:50 Acetaminophen 325 Mg Tablet PO 02/11/25 03:49 Q6H PRN Fever >101.5 Hydrocodone Bitart/Acetaminophen 1 tab 01/12/25 03:50 Hydrocodone/Apap 10/325 Tab GT 01/17/25 03:49 Q4HR PRN PAIN SCALE 7-10 (Severe Baclofen 10 mg 01/12/25 06:00 01/13/25 06:08 Baclofen 10 Mg Tablet GT 02/11/25 05:59 10 mg Q8HR ROCIO Administration Clonazepam 1 mg 01/12/25 09:00 01/13/25 09:59 Clonazepam 0.5 Mg Tablet GT 01/17/25 08:59 1 mg BID ROCIO Administration Xcopri 200mg Tablet 0 ea 01/12/25 16:45 01/13/25 10:25 GT 02/11/25 16:44 1 tablet QDAY ROCIO Administration Heparin Sodium (Porcine) 5,000 unit 01/12/25 21:00 01/13/25 09:57 Heparin Sod Inj 5000 Unit/Ml Vial SC 01/26/25 20:59 5,000 unit Q12HR ROCIO Administration Lactulose 10 gm 01/12/25 09:00 01/13/25 09:56 Lactulose Syrup 20 Gm/30 Ml Udc 02/11/25 08:59 10 gm QDAY ROCIO Administration Protocol Lansoprazole 30 mg 01/13/25 09:00 01/13/25 09:59 Lansoprazole 30 Mg Tab.Rap GT 02/12/25 08:59 30 mg QDAY ROCIO Administration Protocol Levetiracetam 750 mg 01/12/25 21:00 01/13/25 09:57 Levetiracetam Liqd 500 Mg/5 Ml Udc GT 02/11/25 20:59 750 mg BID ROCIO Administration Loratadine 10 mg 01/12/25 09:00 01/13/25 09:59 Loratadine 10 Mg Tablet GT 02/11/25 08:59 10 mg DAILY ROCIO Administration Ondansetron HCl 4 mg 01/12/25 03:50 Ondansetron Inj 2 Mg/Ml Inj 2 Ml IVP 02/11/25 03:49 Q6H PRN NAUSEA OR VOMITING Protocol Oxycodone/Acetaminophen 1 tab 01/12/25 03:50 Oxycodone/Apap 5/325 Tablet GT 01/17/25 03:49 Q6H PRN PAIN SCALE 4-6 (Moderate Sennosides 1 tab 01/12/25 09:00 01/13/25 09:59 Senna Tablet GT 02/11/25 08:59 1 tab QDAY ROCIO Administration Protocol Zinc Oxide 1 gm 01/12/25 08:13 Cod Ana Oil/Znox Cream 40% 60 Gm Tube TOP 02/11/25 08:12 Q2HR PRN DIAPER RASH Plan Patient is a 34-year-old male with past medical history of traumatic brain injury with contractures, anoxic brain injury and persistent vegetative state since 2002, history of seizures, and myocarditis with residual neurologic injury, PEG tube dependence brought to the [facility] ED from SNF on 01/11/2025 for fever. On presentation have elevated lactic acid. Admitted for further evaluation of lactic acidosis, suspect 2/2 valproic acid vs seizure activity vs hypoperfusion. #Lactic acidosis, likely mixed a and b- resolving Ddx: medication induced (valproic acid use), seizure activity, no source of infection. Patient brought in from half-way for oral fever. On arrival was tachypneic, tachycardic, diaphoretic hence triggered as septic protocol. However, on evaluation patient was afebrile, vitals were stable except for mild tachycardia post IV fluids and ceftriaxone. No WBC, Pro-Jerzy was negative hence low suspicion for acute sepsis. Lactic acidosis 2.9 uptrend to 4.1 after 3 L of fluid. Lactic acidosis is most likely a combination of type a and b, related to hypoperfusion, in the setting of the patient's persistent vegetative state. The patient receives nutrition via PEG tube and may be dehydrated due to inadequate fluid intake. and type B lactic acidosis given patient is on valproic acid, pt lactic acidosis could also be caused by recent seizure activity. UA negative for UTI. ? Daily labs - [place] and oxycodone for pain as needed - Strict ins and out - HOLD valproic acid - preliminary blood cultures negative #Chronic persistent vegetative state s/p traumatic brain injury #History of seizure disorder Patient takes Keppra 750 BID, clonazepam 1mg BID, baclofen 10mg, and valproic acid 250mg daily pt mother will be bringing xcopri (not on formulary) ? Resumed home medications - holding valproic acid ? Seizure precautions - consulted neuro--appreciate recommendations #PEG tube -Recent dietitian referral, currently on jevity feeds. -Wound care referral -Water Flushes of 30 mL/HR #Constipation resolved with enema 01/11/2025 CT abdominal/pelvis showed. Abundant stool in the rectum with thickening of the rectal wall, differential would include proctitis, rectal tumor not excluded. Also marked thickening of urinary bladder wall. Digital rectal exam performed and showed no signs of fecal impaction in rectal vault nonetheless patient was given enema and had a soft bowel movement. Low suspicion for proctatis as stated no kimberyl blood per rectum, no mucus or pus noted on ARIEL, no elevated WBC count, and afebrile upon evaluation. UA negative leukocyte esterase and pyuria. Patient received IV ceftriaxone and Flagyl in the ED to cover infectious causes of fever. - d/c IV cefepime 2gm (01/12) given no leukocytosis, remains afebrile. - Indwelling barfield catheter in place - Lactulose 10 gm GT and senna GT #Mild hyponatremia- resolved DDx: GI losses versus medication induced versus dehydration. On admission sodium 131. Hospital management: Lines: peripheral IV Diet: PEG tube Bowel: Senna and lactulose GI prophylaxis: pantoprazole 40 mg DVT prophylaxis: Heparin SC Disposition: [facility] for lactic acidosis workup and management CODE STATUS: DNR and DNI, however upon discharge, pt will be sent as FULL CODE (discussed pt case with Dr. Lainez) The patient's management plan was discussed with my attending physician Dr. Gil. Julita Shaver, PGY-2
--- NOTE | 2025-01-13 17:54 | PC.NURSE ---
rec'd call from [facility] for update on pt, Dr. Lainez's phone # [phone]
[2025-01-14] VITALS (9 sets, daily range): BP systolic 106–133; BP diastolic 69–83; PULSE 75–92; RESP 16–18; TEMP 36.1–36.6; O2SAT 95–98; BMI 22.5
[2025-01-14] MEDS: BACLOFEN 10 MG TABLET GT ×3 (05:09→21:02)
[2025-01-14 06:25] LABS: Anion Gap 12 (7-16); BUN/Creatinine Ratio 13 Ratio (12-20); Blood Urea Nitrogen < 5 mg/dL (9-23); Calcium 9.7 mg/dL (8.3-10.6); Carbon Dioxide 28.5 mMol/L (20.0-31.0); Chloride 97 mMol/L (98-107); Creatinine (Component) 0.4 mg/dL (0.6-1.3); Estimated Creatinine Clearance 272.3 mL/min (>60); Glucose 117 mg/dL (74-106); Magnesium 1.7 mg/dL (1.6-2.6); Osmolality,Calculated 272 (275-295); Phosphorous 3.7 mg/dL (2.4-5.1); Potassium 3.8 mMol/L (3.4-5.1); Sodium 137 mMol/L (136-145); eGFR > 60 See Note
[2025-01-14] MEDS: LANSOPRAZOLE 30 MG TAB.RAP.DR GT (09:38)
[2025-01-14] MEDS: levETIRAcetam LIQD 500 MG/5 ML UDC 750 MG GT ×2 (09:39→20:37)
[2025-01-14] MEDS: LACTULOSE SYRUP 20 GM/30 ML UDC 10 GM GT (09:39)
[2025-01-14] MEDS: HEPARIN SOD INJ 5000 UNIT/ML VIAL SC ×2 (09:40→20:37)
[2025-01-14] MEDS: POTASSIUM CHLORIDE 10% 20 MEQ/15 ML UDC GT (09:43)
[2025-01-14] MEDS: Magnesium Sulfate 4 GM Ivpb 4 GM/50 ML BAG IV (09:44)
[2025-01-14] MEDS: XCOPRI 200 MG GT (10:39)
--- NOTE | 2025-01-14 11:08 | ESPR_ITS ---
<Statement entered by Kelli Gil MD - 01/21/25 17:36> I reviewed above note and agree with findings and plans. I have also personally examined the patient with medicine team and went over assessment and plan with medical team including post graduate internship and resident physician. <Statement entered by Meeta Thompson MD - 01/14/25 16:07> I discussed with and supervised the post graduate internship physician who took care of this patient. I personally saw and examined the patient and discussed the assessment and plan with the entire medicine team, including my attending Dr. Gil, I agree with most of the assessment and plan as documented below Meeta Thompson M.D. PGY-3 Disclaimer: Despite multiple revisions, due to the dictation software being used, the document bellow may not be free of grammatical errors including phonetic/typographic errors. However, this does not deter from our commitment to providing health care in the patient's best interest in mind. Documentation for date of: 01/14/25 Subjective Subjective Interval history: Patient is a 34-year-old male with past medical history of traumatic brain injury with contractures, anoxic brain injury and persistent vegetative state since 2002, history of seizures, and myocarditis with residual neurologic injury, PEG tube dependence brought to the [facility] ED from SNF on 01/11/2025 for fever. On presentation have elevated lactic acid. Admitted for further evaluation of lactic acidosis likely 2/2 valproic acid (holding while inpatient) 01/12/2025: Patient seen and examined at bedside. Had discussion with Dr. Lainez, (pts legal medical decision maker) who states that while inpatient, patient is to be kept DNR/DNI, upon discharge, his code status will be FULL. continue with IVF. holding valproic acid. Continue trending lactic acid 01/14/2025 Patient seen and examined at bedside. Neuro will evaluate patient and make reccomendations for his seizure medications. have been holding valproic acid. on prior admissions, his lactic acids have been mildly elevated. likely chronic. pending dispo likely tomorrow. Exam Vital Signs Temp Pulse Resp BP Pulse Ox O2 Del Method 97 F 82 18 133/81 H 95 Room Air 01/14/25 08:00 01/14/25 08:00 01/14/25 08:00 01/14/25 08:00 01/14/25 08:00 01/14/25 08:00 Narrative Exam GENERAL APPEARANCE: Patient is in chronic vegetative state with contracture. Saturating well on room air. HEENT: NC, AT. Dry mucous membrane. EOMI, clear conjunctiva, oropharynx clear.eyes are often teary and filled with mucus NECK: Supple without lymphadenopathy. HEART: Rate rhythm is regular, regular rate, no murmurs rubs or clicks LUNGS:Clear to auscultation no wheezes crackles or rubs, tachypnic and coarse ronchi, snoring. ABDOMEN: Abdomen is soft no masses positive bowel sounds all 4 quadrants. PEG tube and dressing site prominent in the left lower quadrant of the abdomen. No surrounding erythema or edema BACK: No CVAT, no obvious deformity. EXTREMITIES: No edema. Spastic quadriplegia with contractures NEUROLOGICAL: Chronic vegetative state. Skin: Warm and dry without any rash. Objective Labs 01/13/25 05:16 01/14/25 04:54 Labs: Laboratory Results - last 24 hr 01/13/25 01/14/25 13:10 04:54 Sodium 137 Potassium 3.8 D Chloride 97 L Carbon Dioxide 28.5 Anion Gap 12 BUN < 5 L Creatinine 0.4 L Estim Creat Clear Calc 272.3 eGFR > 60 BUN/Creatinine Ratio 13 Glucose 117 H Calculated Osmolality 272 L Lactic Acid 2.5 H Calcium 9.7 Phosphorus 3.7 Magnesium 1.7 Quality Measures Quality Measures VTE prophylaxis Assessment & Plan Assessment Current Active Medications: Generic Name Dose Route Start Last Admin Trade Name Freq PRN Reason Stop Dose Admin Acetaminophen 650 mg 01/12/25 03:50 Acetaminophen 325 Mg Tablet PO 02/11/25 03:49 Q6H PRN Fever >101.5 Hydrocodone Bitart/Acetaminophen 1 tab 01/12/25 03:50 Hydrocodone/Apap 10/325 Tab GT 01/17/25 03:49 Q4HR PRN PAIN SCALE 7-10 (Severe Baclofen 10 mg 01/12/25 06:00 01/14/25 05:09 Baclofen 10 Mg Tablet GT 02/11/25 05:59 10 mg Q8HR ROCIO Administration Clonazepam 1 mg 01/12/25 09:00 01/14/25 09:38 Clonazepam 0.5 Mg Tablet GT 01/17/25 08:59 1 mg BID ROCIO Administration Xcopri 200mg Tablet 0 ea 01/12/25 16:45 01/14/25 10:39 GT 02/11/25 16:44 1 tablet QDAY ROCIO Administration Heparin Sodium (Porcine) 5,000 unit 01/12/25 21:00 01/14/25 09:40 Heparin Sod Inj 5000 Unit/Ml Vial SC 01/26/25 20:59 5,000 unit Q12HR ROCIO Administration Magnesium Sulfate 4 gm in 50 mls @ 12.5 mls/hr 01/14/25 08:04 01/14/25 09:44 Magnesium Sulfate Ivpb IV 01/14/25 12:03 12.5 mls/hr X1 ONE Administration Lactulose 10 gm 01/12/25 09:00 01/14/25 09:39 Lactulose Syrup 20 Gm/30 Ml Udc 02/11/25 08:59 10 gm QDAY ROCIO Administration Protocol Lansoprazole 30 mg 01/13/25 09:00 01/14/25 09:38 Lansoprazole 30 Mg Tab. GT 02/12/25 08:59 30 mg QDAY ROCIO Administration Protocol Levetiracetam 750 mg 01/12/25 21:00 01/14/25 09:39 Levetiracetam Liqd 500 Mg/5 Ml Udc GT 02/11/25 20:59 750 mg BID ROCIO Administration Loratadine 10 mg 01/12/25 09:00 01/14/25 09:38 Loratadine 10 Mg Tablet GT 02/11/25 08:59 10 mg DAILY ROCIO Administration Ondansetron HCl 4 mg 01/12/25 03:50 Ondansetron Inj 2 Mg/Ml Inj 2 Ml IVP 02/11/25 03:49 Q6H PRN NAUSEA OR VOMITING Protocol Oxycodone/Acetaminophen 1 tab 01/12/25 03:50 Oxycodone/Apap 5/325 Tablet GT 01/17/25 03:49 Q6H PRN PAIN SCALE 4-6 (Moderate Sennosides 1 tab 01/12/25 09:00 01/14/25 09:38 Senna Tablet GT 02/11/25 08:59 1 tab QDAY ROCIO Administration Protocol Zinc Oxide 1 gm 01/12/25 08:13 Cod Ana Oil/Znox Cream 40% 60 Gm Tube TOP 02/11/25 08:12 Q2HR PRN DIAPER RASH Plan Patient is a 34-year-old male with past medical history of traumatic brain injury with contractures, anoxic brain injury and persistent vegetative state since 2002, history of seizures, and myocarditis with residual neurologic injury, PEG tube dependence brought to the [facility] ED from SNF on 01/11/2025 for fever. On presentation have elevated lactic acid. Admitted for further evaluation of lactic acidosis, initially suspected to be 2/2 valproic acid, however pt noted to have chronically elevated Lactic acid. likely d/c tomorrow. #Lactic acidosis, CHRONIC, likely mixed a and b- stable Ddx: medication induced (valproic acid use), seizure activity, no source of infection. Patient brought in from skilled nursing for oral fever. On arrival was tachypneic, tachycardic, diaphoretic hence triggered as septic protocol. However, on evaluation patient was afebrile, vitals were stable except for mild tachycardia post IV fluids and ceftriaxone. No WBC, Pro-Jerzy was negative hence low suspicion for acute sepsis. Lactic acidosis 2.9 uptrend to 4.1 after 3 L of fluid. Lactic acidosis is most likely a combination of type a and b, related to hypoperfusion, in the setting of the patient's persistent vegetative state. The patient receives nutrition via PEG tube and may be dehydrated due to inadequate fluid intake. and type B lactic acidosis given patient is on valproic acid, pt lactic acidosis appears to be chronic as per chart review. UA negative for UTI. ? Daily labs - [place] and oxycodone for pain as needed - Strict ins and out - HOLD valproic acid - preliminary blood cultures negative - Neurology consulted, appreciate recs, regarding seizure meds #Chronic persistent vegetative state s/p traumatic brain injury #History of seizure disorder Patient takes Keppra 750 BID, clonazepam 1mg BID, baclofen 10mg, and valproic acid 250mg daily pt mother will be bringing xcopri (not on formulary) ? Resumed home medications - holding valproic acid ? Seizure precautions - consulted neuro--appreciate recommendations #PEG tube -Recent dietitian referral, currently on jevity feeds. -Wound care referral -Water Flushes of 30 mL/HR #Constipation resolved with enema 01/11/2025 CT abdominal/pelvis showed. Abundant stool in the rectum with thickening of the rectal wall, differential would include proctitis, rectal tumor not excluded. Also marked thickening of urinary bladder wall. Digital rectal exam performed and showed no signs of fecal impaction in rectal vault nonetheless patient was given enema and had a soft bowel movement. Low suspicion for proctatis as stated no kimberly blood per rectum, no mucus or pus noted on ARIEL, no elevated WBC count, and afebrile upon evaluation. UA negative leukocyte esterase and pyuria. Patient received IV ceftriaxone and Flagyl in the ED to cover infectious causes of fever. - d/c IV cefepime 2gm (01/12) given no leukocytosis, remains afebrile. - Indwelling barfield catheter in place - Lactulose 10 gm GT and senna GT #Mild hyponatremia- resolved DDx: GI losses versus medication induced versus dehydration. On admission sodium 131. Hospital management: Lines: peripheral IV Diet: PEG tube Bowel: Senna and lactulose GI prophylaxis: pantoprazole 40 mg DVT prophylaxis: Heparin SC Disposition: [facility] for lactic acidosis workup and management CODE STATUS: DNR and DNI, however upon discharge, pt will be sent as FULL CODE (discussed pt case with Dr. Lainez) The patient's management plan was discussed with my attending physician Dr. Gil. Julita Shaver, PGY-2
--- NOTE | 2025-01-14 11:41 | PD.RESCONSUL ---
HPI Data of Consult Requesting Physician: Kelli Gil MD Admitting Provider: Royal Valle MD Attending Provider: Kelli Gil MD Primary Care Provider: Dheeraj Portillo MD Consult Narrative History of present illness: History limited at this time as patient is poor historian been persistent vegetative state since 2002 Patient is a 34-year-old male with past medical history of traumatic brain injury with contractures, anoxic brain injury and persistent vegetative state since 2002, history of seizures, and myocarditis with residual neurologic injury, PEG tube dependence brought to the [facility]F on 01/11/[facility]25 for oral fever. Patient is nonverbal retracted deconditioned. History taken per chart review and speaking to ED provider. Reportedly patient had low-grade oral fever at SNF and care provider had concerns has the pt was recently diagnosed with pneumonia.Hence patient was sent to the ED for further evaluation. On presentation patient was found in persistent vegetative state without ability to talk and was also found to have contracted limbs. He was shivering and looked dehydrated. Patient mother was contacted to confirm the code status DNR/DNI. ED Course: On arrival patient was mildly tachycardic with pulse of 105 and temp > 100.4, triggering sepsis protocol. Saturating well on room air. Labs show WBC within normal limits, normal renal panel. Na 131. Trops unremarkable, Pro-Jerzy < 0.04 glucose 127, lactic acid 2.9. In the ED, patient was given 2L of LR and 1L NS. Lactic acid still uptrended to 4.1. Chest x-ray and UA was unremarkable. EKG showed sinus tachycardia with nonspecific ST changes. CT abdomen /pelvis was done determined potential cause of infection. Shows possibility of proctitis versus rectal tumor Digital rectal exam performed and showed no signs of fecal impaction in rectal vault. Patient was given enema and had a soft bowel movement. Culture was taken, patient received IV ceftriaxone and Flagyl and remained hemodynamically stable. However despite additional fluids lactic acid still uptrending with unclear source. Patient will be admitted for lactic acidosis evaluation and management. PMHx: As above Surgeries: Meds:Baclofen, clonazepam, levetiracetam, valproic acid, Olaptadine eyedrops,xcorpi Allergies:Penicillin Family Hx: Limited at this time Social Hx:[place] since [place]. Never smoker cigarettes or illicit drug use. cc:: cc: Kelli Gil MD Review of Systems Review of Systems Narrative Review of Systems: 12 point ROS reviewed and is otherwise negative unless stated directly in the HPI Exam Vital Signs Temp Pulse Resp BP Pulse Ox O2 Del Method 97 F 82 18 133/81 H 95 Room Air 01/14/25 08:00 01/14/25 08:00 01/14/25 08:00 01/14/25 08:00 01/14/25 08:00 01/14/25 08:00 Narrative Exam General:Patient is in chronic vegetative state with contracture. Saturating well on room air. HEENT:NC, AT. Dry mucous membrane. EOMI, clear conjunctiva, oropharynx clear. Neck:Supple without lymphadenopathy. CVS:Rate rhythm is regular, regular rate, no murmurs rubs or clicks Pulmonary:Clear to auscultation no wheezes crackles or rubs, tachypnic and coarse ronchi, snoring. GI:Abdomen is soft no masses positive bowel sounds all 4 quadrants. PEG tube and dressing site prominent in the left lower quadrant of the abdomen. No surrounding erythema or edema Back:No CVAT, no obvious deformity. Extremities: No edema. Spastic quadriplegia with contractures Neuro:Chronic vegetative state, limited neuro exam Skin:Warm and dry without any rash. Psych:Limited Cooperation Results Labs 01/13/25 05:16 01/14/25 04:54 Labs: [facility] 01/14/25 04:54 Sodium 137 Potassium 3.8 D Chloride 97 L Carbon Dioxide 28.5 BUN < 5 L Creatinine 0.4 L Glucose 117 H Calcium 9.7 Quality Measures Quality Measures none Medications Home Medications and Allergies Home Medications ?Medication ?Instructions ?Recorded ?Confirmed ?Type ascorbic acid (vitamin C) 500 mg 500 mg feeding tube DAILY 12/24/23 01/12/25 History tablet (Vitamin C) baclofen 10 mg tablet 10 mg feeding tube Q8HR 12/24/23 01/12/25 History cenobamate 200 mg tablet (Xcopri) 200 mg feeding tube DAILY 12/24/23 01/12/25 History clonazepam 1 mg tablet 1 mg feeding tube BID 12/24/23 01/12/25 History loratadine 10 mg tablet 10 mg feeding tube DAILY 12/24/23 01/12/25 History olopatadine 0.2 % eye drops 1 drp ophthalmic (eye) DAILY 12/24/23 01/12/25 History valproic acid (as sodium salt) 250 250 mg feeding tube BID 12/24/23 01/12/25 History mg/5 mL oral solution zinc oxide-cod liver oil 40 % 1 applic topical TID PRN diaper 06/13/24 01/12/25 History topical paste (Diaper Rash) rash Allergies Allergy/AdvReac Type Severity Reaction Status Date / Time Penicillins Allergy Verified 10/27/24 20:01 Visit Medications Acetaminophen (Acetaminophen 325 Mg Tablet) 650 mg PO Q6H PRN PRN Reason: Fever >101.5 Stop: 02/11/25 03:49 Hydrocodone Bitart/Acetaminophen (Hydrocodone/Apap 10/325 Tab) 1 tab GT Q4HR PRN PRN Reason: PAIN SCALE 7-10 (Severe Stop: 01/17/25 03:49 Baclofen (Baclofen 10 Mg Tablet) 10 mg GT Q8HR [facility]IO Stop: 02/11/25 05:59 Last Admin: 01/14/25 05:09 Dose: 10 mg Clonazepam (Clonazepam 0.5 Mg Tablet) 1 mg GT BID ROCIO Stop: 01/17/25 08:59 Last Admin: 01/14/25 09:38 Dose: 1 mg Xcopri 200mg Tablet 0 ea GT QDAY [facility] Stop: 02/11/25 16:44 Last Admin: 01/14/25 10:39 Dose: 1 tablet Heparin Sodium (Porcine) (Heparin Sod Inj 5000 Unit/Ml Vial) 5,000 unit SC Q12HR [facility]IO Stop: 01/26/25 20:59 Last Admin: 01/14/25 09:40 Dose: 5,000 unit Magnesium Sulfate (Magnesium Sulfate Ivpb) 4 gm in 50 mls @ 12.5 mls/hr IV X1 ONE Stop: 01/14/25 12:03 Last Admin: 01/14/25 09:44 Dose: 12.5 mls/hr Lactulose (Lactulose Syrup 20 Gm/30 Ml Udc) 10 gm GT QDAY [facility]; Protocol Stop: 02/11/25 08:59 Last Admin: 01/14/25 09:39 Dose: 10 gm Lansoprazole (Lansoprazole 30 Mg Tab.Rap) 30 mg GT QDAY [facility]; Protocol Stop: 02/12/25 08:59 Last Admin: 01/14/25 09:38 Dose: 30 mg Levetiracetam (Levetiracetam Liqd 500 Mg/5 Ml Udc) 750 mg GT BID [facility]IO Stop: 02/11/25 20:59 Last Admin: 01/14/25 09:39 Dose: 750 mg Loratadine (Loratadine 10 Mg Tablet) 10 mg GT DAILY [facility] Stop: 02/11/25 08:59 Last Admin: 01/14/25 09:38 Dose: 10 mg Ondansetron HCl (Ondansetron Inj 2 Mg/Ml Inj 2 Ml) 4 mg IVP Q6H PRN; Protocol PRN Reason: NAUSEA OR VOMITING Stop: 02/11/25 03:49 Oxycodone/Acetaminophen (Oxycodone/Apap 5/325 Tablet) 1 tab GT Q6H PRN PRN Reason: PAIN SCALE 4-6 (Moderate Stop: 01/17/25 03:49 Sennosides (Senna Tablet) 1 tab GT QDAY [facility]; Protocol Stop: 02/11/25 08:59 Last Admin: 01/14/25 09:38 Dose: 1 tab Zinc Oxide (Cod Ana Oil/Znox Cream 40% 60 Gm Tube) 1 gm TOP Q2HR PRN PRN Reason: DIAPER RASH Stop: 02/11/25 08:12 Discontinued Medications Xcopri 200mg Tablet 0 ea PO QDAY [facility] Stop: 02/11/25 16:29 Xcopri 200mg Tablet 0 ea GT QDAY [facility] Stop: 02/12/25 08:59 Heparin Sodium (Porcine) (Heparin Sod Inj 5000 Unit/Ml Vial) 5,000 unit SC Q8HR [facility] Stop: 01/26/25 05:59 Last Admin: 01/12/25 14:32 Dose: 5,000 unit Lactated Ringer's (Lactated Ringers) 1,000 mls @ 999 mls/hr IV .Q1H1M ONE Stop: 01/11/25 21:03 Last Infusion: 01/11/25 21:33 Dose: Infused Ceftriaxone Sodium/Dextrose (Rocephin/D5w 1gm Iv Premix) 1 gm in 50 mls @ 100 mls/hr IV X1 ONE Stop: 01/11/25 20:33 Last Infusion: 01/11/25 21:45 Dose: Infused Lactated Ringer's (Lactated Ringers) 1,000 mls @ 999 mls/hr IV .Q1H1M ONE Stop: 01/11/25 22:33 Last Infusion: 01/11/25 23:32 Dose: Infused Ceftriaxone Sodium/Dextrose (Rocephin/D5w 1gm Iv Premix) 1 gm in 50 mls @ 100 mls/hr IV X1 ONE Stop: 01/12/25 01:19 Last Admin: 01/12/25 01:32 Dose: Not Given Metronidazole (Flagyl 500 Mg Iv) 500 mg in 100 mls @ 100 mls/hr IV X1 ONE Stop: 01/12/25 01:49 Last Infusion: 01/12/25 03:06 Dose: Infused Sodium Chloride (Ns) 1,000 mls @ 999 mls/hr IV .Q1H1M ONE Stop: 01/12/25 02:32 Last Infusion: 01/12/25 03:06 Dose: Infused Sodium Chloride (Ns) 1,000 mls @ 100 mls/hr IV .Q10H [facility] Stop: 02/11/25 03:59 Last Admin: 01/12/25 04:30 Dose: 100 mls/hr Sodium Chloride (Ns) 1,000 mls @ 999 mls/hr IV .Q1H1M ONE Stop: 01/12/25 04:53 Last Admin: 01/12/25 04:29 Dose: 999 mls/hr Cefepime HCl 2 gm/ Sodium (Chloride) 50 mls @ 100 mls/hr IV Q12HR [facility] Stop: 01/19/25 20:59 Cefepime HCl 2 gm/ Sodium (Chloride) 50 mls @ 100 mls/hr IV X1 ONE Stop: 01/12/25 04:29 Last Admin: 01/12/25 04:32 Dose: 100 mls/hr Dextrose/Sodium Chloride (D5-Ns) 500 mls @ 100 mls/hr IV .Q5H [facility] Stop: 02/11/25 04:44 Last Admin: 01/12/25 05:05 Dose: 100 mls/hr Lactated Ringer's (Lactated Ringers) 1,000 mls @ 85 mls/hr IV .[id number] [facility] Stop: 01/13/25 07:35 Last Admin: 01/13/25 01:35 Dose: 85 mls/hr Sodium Chloride (Ns) 1,000 mls @ 999 mls/hr IV .Q1H1M ONE Stop: 01/12/25 12:26 Last Admin: 01/12/25 11:40 Dose: 999 mls/hr Lactated Ringer's (Lactated Ringers) 1,000 mls @ 999 mls/hr IV .Q1H1M ONE Stop: 01/12/25 16:57 Last Admin: 01/12/25 17:11 Dose: 999 mls/hr Levetiracetam (Levetiracetam Inj 100 Mg/Ml Vial 5ml) 1,000 mg IVP X1 ONE Stop: 01/11/25 20:09 Last Admin: 01/11/25 20:31 Dose: 1,000 mg Levetiracetam (Levetiracetam Liqd 500 Mg/5 Ml Udc) 100 mg GT BID [facility] Stop: 02/11/25 08:59 Last Admin: 01/12/25 08:06 Dose: 100 mg Non-Formulary Medication (Cenobamate [Xcopri]) 200 mg FEED TUBE DAILY [facility] Stop: 02/11/25 08:59 Non-Formulary Medication (Valproic Acid (As Sodium Salt)) 250 mg FEED TUBE BID [facility] Stop: 02/11/25 08:59 Non-Formulary Medication (Olopatadine) 1 drop OPHTHALMIC DAILY [facility] Stop: 02/11/25 08:59 Pantoprazole Sodium (Pantoprazole Inj 40 Mg Vial) 40 mg IVP QDAY [facility] Stop: 02/11/25 08:59 Last Admin: 01/12/25 08:05 Dose: 40 mg Potassium Chloride (Potassium Chloride 10% 20 Meq/15 Ml Udc) 20 meq GT X1 ONE Stop: 01/14/25 08:05 Last Admin: 01/14/25 09:43 Dose: 20 meq Assessment & Plan Plan Assessment Patient is a 34-year-old male with past medical history of traumatic brain injury with contractures, anoxic brain injury and persistent vegetative state since 2002, history of seizures, and myocarditis with residual neurologic injury, PEG tube dependence brought to the [facility] ED from [facility] on 01/11/2025 for fever. On presentation have elevated lactic acid. Admitted for further evaluation of lactic acidosis, suspect 2/2 valproic acid vs seizure activity vs hypoperfusion. #Chronic persistent vegetative state s/p traumatic brain injury #History of seizure disorder Patient takes Keppra 750 BID, clonazepam 1mg BID, baclofen 10mg, and valproic acid 250mg daily Caregiver will be bringing xcopri (not on formulary) Unless patient is having active seizure or has toxic levels of Depakote and hyperammonemia, unlikely related to lactic acidosis Plan: ? Continue home medications of clonazepam, Xcorpi, and Keppra ? With 3 antiepileptics as above, we recommend discontinuing valproic acid ? Seizure precautions ? Consider holding lactulose as this may be causing persistent lactic acidosis #Lactic acidosis, likely mixed a and b- resolving #PEG tube #Constipation resolved with enema #Mild hyponatremia, resolved Above handled by primary hospitalist team Patient seen and care discussed with my attending physician, Dr. Jay Contreras, PGY-2 This document was transcribed using voice recognition technology. Minor inaccuracies may be present. Attending Provider Attestation/Addendum I personally have seen and examined the patient at the bedside and I agreed with the resident's findings, assessment and plan of care. Lactic acidosis it is a rare side effect, usually seen in patients with Depakote toxicity from hyperammonemia. Lactulose can sometimes lead to lactic acidosis and consider not continuing or using for constipation in the future in him. Patient has been on Depakote without any side effects so far, such as intolerance to tube feeding with excessive vomiting or altered mental status or abnormal liver enzymes. As he has been on 3 other antiepileptics, we could even consider discontinuing valproic acid for now. If he has breakthrough seizures being off of valproic acid, will consider increasing Xcopri.
--- NOTE | 2025-01-14 16:24 | PC.SS ---
SS follow up note; Patient is pending Neuro Rec's. Patient will discharge home when medically cleared.
[2025-01-15] VITALS: BP 115/77; PULSE 78; PULSE 87; RESP 19; TEMP 36.1; O2SAT 94
[2025-01-15 04:00] VITALS: BP 128/75; PULSE 79; PULSE 82; RESP 15; TEMP 36.2; O2SAT 95
[2025-01-15] MEDS: BACLOFEN 10 MG TABLET GT (05:17)
[2025-01-15 05:58] VITALS: BMI 22.2
[2025-01-15 06:20] LABS: Phosphorous 3.1 mg/dL (2.4-5.1)
[2025-01-15 08:00] VITALS: BP 104/73; PULSE 75; PULSE 79; RESP 19; TEMP 36.4; O2SAT 99
--- NOTE | 2025-01-15 08:21 | ESDS_ITS ---
<Statement entered by Kelli Gil MD - 01/21/25 17:36> I reviewed above note and agree with findings and plans. I have also personally examined the patient with medicine team and went over assessment and plan with medical team including internet site designer and resident physician. <Statement entered by Meeta Thompson MD - 01/16/25 07:33> I discussed with and supervised the internet site designer physician who took care of this patient. I personally saw and examined the patient and discussed the assessment and plan with the entire medicine team, including my attending Dr. Gil, I agree with most of the assessment and plan as documented below Meeta Thompson M.D. PGY-3 Planned Discharge Date 01/15/25 DS: Providers Provider Date of admission: 01/12/25 03:43 Primary care physician: Dheeraj Portillo MD Admitting Provider: Royal Valle MD Attending Provider on Admission: Kelli Gil MD Consults: 01/12/25 04:00 Referral Registered Dietitian Routine Comment: Pegtube feeds 01/12/25 06:15 Referral Registered Dietitian Routine Comment: 01/12/25 06:16 Referral Wound Care Routine Comment: 01/13/25 14:36 Consult to Neurology / Tele-Neurology Routine Comment: Consulting Provider: Kevin Thompson Attending Provider on DC: Kelli Gil MD Discharging Provider: Kelli Gil MD DS: Diagnosis Problem List Completed Was Problem List Reviewed/Reconciled?: Yes Hospital Course Hospital Course Hospital course: Hospital Course Mr Munoz is a 34-year-old male with past medical history of traumatic brain injury with contractures, anoxic brain injury and persistent vegetative state since 2002, history of seizures, and myocarditis with residual neurologic injury, PEG tube dependence brought to the [facility] ED from SNF on 01/11/2025 for fever and lactic acidosis, fever resolved. Neuro consulted for recs reguarding seizure meds and chronic lactic acidosis. They reccomended stopping valproic acid given pt on several anti seizure medications. Patient stable and medically cleared for discharge code status upon discharge is FULL CODE Discharge instructions Please resume your home medications as prescribed. Please stop taking your Valproic acid and if there is any concern for constipation, do not use Lactulose, and try other agents instead. Please see your Primary Care Physician within 1 week. Diagnoses #Lactic acidosis, CHRONIC, likely mixed a and b- stable #Chronic persistent vegetative state s/p traumatic brain injury #History of seizure disorder #PEG tube #Constipation resolved with enema Plan discussed with Dr Thompson, and Dr. Jeffery Love MD PGY1 Time Spent with Patient Time attestation: Total time spent providing and/or coordinating discharge services: Time spent: Greater than 30 minutes Exam Vital Signs Temp Pulse Resp BP Pulse Ox O2 Del Method 97.1 F 82 15 128/75 95 Room Air 01/15/25 04:00 01/15/25 04:00 01/15/25 04:00 01/15/25 04:00 01/15/25 04:00 01/15/25 04:00 Narrative Exam GENERAL APPEARANCE: Patient is in chronic vegetative state with contracture. Saturating well on room air. HEENT: NC, AT. Dry mucous membrane. EOMI, clear conjunctiva, oropharynx clear.eyes are often teary and filled with mucus NECK: Supple without lymphadenopathy. HEART: Rate rhythm is regular, regular rate, no murmurs rubs or clicks LUNGS:Clear to auscultation no wheezes crackles or rubs, tachypnic and coarse ronchi, snoring. ABDOMEN: Abdomen is soft no masses positive bowel sounds all 4 quadrants. PEG tube and dressing site prominent in the left lower quadrant of the abdomen. No surrounding erythema or edema BACK: No CVAT, no obvious deformity. EXTREMITIES: No edema. Spastic quadriplegia with contractures NEUROLOGICAL: Chronic vegetative state. Skin: Warm and dry without any rash. Discharge Plan Plan Patient Disposition: HOME (Self Care) Disposition Comment: [facility] Care Plan Goals: Please resume your home medications as prescribed. Please stop taking your Valproic acid and if there is any concern for constipation, do not use Lactulose, and try other agents instead. Please see your Primary Care Physician within 1 week. Prescriptions/Referrals Prescriptions/Med Rec: Continued clonazepam 1 mg tablet 1 mg feeding tube BID ascorbic acid (vitamin C) [Vitamin C] 500 mg tablet 500 mg feeding tube DAILY baclofen 10 mg tablet 10 mg feeding tube Q8HR loratadine 10 mg tablet 10 mg feeding tube DAILY olopatadine 0.2 % drops 1 drp OPHTHALMIC (EYE) DAILY Xcopri 200 mg tablet 200 mg feeding tube DAILY levetiracetam [Keppra] 100 mg/mL solution 750 mg feeding tube BID Qty: 473 0RF Diaper Rash 40 % paste 1 applic topical TID PRN (Reason: diaper rash) Rx Instructions: Q2hr as needed. Discontinued valproic acid (as sodium salt) 250 mg/5 mL solution 250 mg feeding tube BID Referrals: Dheeraj Portillo MD [Primary Care Provider, Family Practice] Patient/Caregiver Discharge Instructions Print Language: Kiswahili Stand Alone Forms: Annia Award Info., Patient Portal Info Letter Discharge Order Discharge Orders: Discharge (Routine); Ordered 01/15/25 Ordered By: Meeta Thompson Quality Discharge Quality Measures VTE prophylaxis
[2025-01-15] MEDS: LANSOPRAZOLE 30 MG TAB.RAP.DR GT (09:02)
[2025-01-15] MEDS: HEPARIN SOD INJ 5000 UNIT/ML VIAL SC (09:03)
[2025-01-15] MEDS: levETIRAcetam LIQD 500 MG/5 ML UDC 750 MG GT (09:03)
--- NOTE | 2025-01-15 09:57 | PC.SS ---
Addendum entered by Kait Serrano 01/15/25 11:38: SS received a call fro [facility] set for 1330. BARBARA Flaherty made aware. Report to be called to Sade [phone] from [facility] Addendum entered by Kait Serrano 01/15/25 10:34: SS spoke to Sade who stated they are short staffed today and will need for SS to set up transport via [employer]. SS to work on transport. Original Note: SS attempted to reach senior group manager is Sade [phone] from [facility], no answer. VM left for calll back in regards to pt DC today.
[2025-01-15 12:00] VITALS: BP 110/65; PULSE 67; PULSE 75; RESP 18; TEMP 36.7; O2SAT 98
== END 2025-01-15 13:45 | disposition home or self-care (01) | DRG 53 ==
LOC: SERX 20:36 → SERHOLD 01-12 04:19 → S3SX 01-12 06:14 → SERHOLD 01-12 06:23
PROVIDERS: Registered Nurse General Practice; Admitting Provider Internal Medicine; Emergency Provider Emergency Medicine; PCP Family Medicine; Visit Provider Internal Medicine
DX: G40.909 Epilepsy, unspecified, not intractable, without status epilepticus (principal); E86.0 Dehydration; E87.20 Acidosis, unspecified; E87.1 Hypo-osmolality and hyponatremia; R40.3 Persistent vegetative state; K62.89 Other specified diseases of anus and rectum; K59.00 Constipation, unspecified; G93.1 Anoxic brain damage, not elsewhere classified; Z93.1 Gastrostomy status; Z66 Do not resuscitate; Z88.0 Allergy status to penicillin; Z87.820 Personal history of traumatic brain injury
CPT/HCPCS: 36415; 71045; 74176; 80048; 80053; 81001; 83605; 83615; 83735; 83880; 84100; 84145; 84484; 85025; 85610; 85730; 87040; 87081; 87400; 87811; 93005; 93225; 94762; 96361; 96365; 96366; 96375; 99285; A4314; J0692; J0696; J1644; J1953; J2470; J3475; J3490; J7030; J7042; J7050; J7120; A9270; J1836